=== PATIENT | female | born 1955 | race Caucasian/White ===

== ENCOUNTER 2023-07-12 09:27 | Emergency (ER) | payer MEDICARE, SELFPAY ==
[2023-07-12] VITALS (8 sets, daily range): BP systolic 130–148; BP diastolic 64–83; PULSE 87–100; RESP 15–16; TEMP 35.7; O2SAT 98–100; BMI 21.1
--- NOTE | 2023-07-12 09:36 | EDS_ITS ---
HPI History of Present Illness HPI Narrative: Patient presents with left wrist pain that began this morning. Patient states he slipped and fell backwards. Patient states she tried to catch herself with her left hand. Patient describes her pain as aching. Patient states it is worse with movement such as flexion. Patient states it is better with rest. Patient denies any paresthesias or weakness. Patient denies any head injury or loss of consciousness. Patient denies any other injuries. Chief Complaint: Upper Extremity Injury Informant: patient Occured/Mechanism Mechanism/Context: Yes fall Onset/Context/Timing Onset: Today Context: Sudden Onset Timing: Continuous Quality of Pain: Aching Location: Left wrist Worsened by: Movement Relieved by: Rest Associated Symptoms Associated Symptoms: Negative for Parasthesia, Weakness or Loss of Funtion PFSH PFSH Medical History no medical history no medical history Home Medications NK 07/12/23 [History Last Taken Unknown] Allergy/AdvReac Type Severity Reaction Status Date / Time Penicillins Allergy Intermediate Hives Verified 07/12/23 09:30 Sulfa (Sulfonamide Allergy Intermediate Hives Verified 07/12/23 09:30 Antibiotics) meperidine [From Demerol] AdvReac Mild Other Verified 07/12/23 09:30 Surgical History no surgical history no surgical history Social History Smoking Status: Never smoker ROS ROS ED Constitutional Constitutional ED: Denies chills or fever(s) Eyes Eyes: Denies blurry vision or change in vision ENT ENT ED: Denies rhinorrhea or sore throat Cardiovascular Cardiovascular: Denies chest pain or palpitations Respiratory/Chest Respiratory/Chest: Denies cough or dyspnea Gastrointestinal Gastrointestinal: Denies nausea or vomiting Genitourinary Genitourinary ED: Denies dysuria or hematuria Musculoskeletal Musculoskeletal: Denies back pain or neck pain Integumentary Denies abscess or rash Neurologic Neurologic: Denies headache(s) or weakness Allergic/Immunologic Allergic/Immunologic ED: Denies mouth swelling or urticaria EXAM Physical Exam Const Vital Signs: 07/12/23 09:28 Temperature 96.2 F L Temperature Source Temporal Pulse Rate 88 Respiratory Rate 16 Blood Pressure 136/78 H Blood Pressure Mean 97 Pulse Ox 100 Oxygen Delivery Method Room Air Positive well nourished and well developed General Appearance ED: well developed and NAD HEENT Reports moist mucous membranes Neck full ROM and supple Extremity Extremity Narrative: There is tenderness and edema over the left wrist. Range of motion was limited in all motions of the left wrist secondary to pain. There are some mild ecchymosis noted. Radial pulses are equal bilaterally. Sensation was intact to light touch in the radial, median, and ulnar areas. Strength is 5/5 in the radial, median, and ulnar areas. General Extremety ED: Yes edema General Extremity: edema Neuro oriented x3, CN's II-XII intact bilaterally, moves all extremities, no focal motor deficits and no sensory deficits noted Sensorium / Orientation: alert Motor Exam: strength 5/5 throughout Psych mental status grossly normal MDM MDM MDM Narrative Medical decision making narrative: Differential diagnosis includes fracture, dislocation, and sprain. X-rays of the left wrist will be obtained to assess for fracture. Radiography Diagnostic Testing: X-rays of the left wrist were obtained. There are 3 views. On my independent interpretation, there is a fracture of the distal radius. There is dorsal angulation of the distal fragment. There is mild displacement. There is questionable fracture of the ulnar styloid. Radiologist also interpreted the x- rays and agrees. Repeat x-rays of the left wrist were obtained after reduction. There are 2 views. On my independent interpretation, there is improvement of the fracture alignment. There is still some dorsal angulation of the distal radius. Radiologist also interpreted the x-rays and agrees. Treatment and Re-Evaluation Narrative: Patient declined any analgesics. Patient was advised of her findings. Patient was advised of the need for sedation and reduction. Patient was advised of the risks and benefits of sedation. Patient is agreeable with this. Informed consent was obtained. Patient was placed on continuous cardiac and pulse oximeter monitors. IV line was established. Patient was given 50 mg of propofol. After adequate sedation, the fracture was reduced. Patient was plac ed in a short arm well-padded custom made AP splint. Neurovascular exam was intact after placement of the splint. Patient tolerated the procedure well. Repeat x-rays were obtained. There are 2 views. On my independent interpretation, the fracture fragments showed somewhat improved alignment. There is still some dorsal angulation. Radiologist also interpreted the x-rays and agrees. Patient does not want any analgesics prescribed at this time. Patient states she would prefer to take Tylenol at home. Patient was given a referral for orthopedics. Patient was instructed to ice and elevate the left wrist. Patient understood and was agreeable with the plan. All questions were answered. Procedures Upper Extremity Splints Upper Extremity Splint: Orthoglass and - (AP) Splint Fabrication: Fabricated Location: Left Procedural Sedation 1 (Initial Baseline): Consent Signed: Yes Any Problems With Anesthesia: No You/Your family experience fever (hyperthermia) w/anesthesia: No Sedation medication: Propofol Dose: 50 Route: IV Maliampati Score: Class II ASA Classification: I Discharge Plan Triage Chief Complaint: Upper Extremity Injury ED Provider: Abhishek Gresham Dx/Rx/DC Orders Clinical Impression: Fracture of left distal radius, Fall Instructions: ED Fracture, Wrist, General Prescriptions: No Action NK Stand Alone Forms: [facility] Primary Care Provider: Teo Ribera Referrals: Don Lange DO [Med Staff - Active Staff] - 3-5 Days Teo Ribera MD [Primary Care Provider] - Disposition Disposition: Home, Self Care
--- NOTE | 2023-07-12 09:45 | RAD_ITS ---
STUDY: X-RAY - LEFT WRIST REASON FOR EXAM: Female, 68 years old. Wrist pain following a fall. TECHNIQUE: 3 view(s) of the wrist were obtained. COMPARISON: None. FINDINGS: There is a comminuted fracture of the distal radial metaphysis with extension to the articular surface. There is evidence of dorsal facing of the radial carpal joint. Avulsion fracture of the ulnar styloid. Normal radiocarpal articulation. Normal distal radioulnar articulation. Normal carpal bones. Normal carpal articulations. Normal carpometacarpal articulation of the thumb. Normal second through fifth carpometacarpal articulations. Normal visualized metacarpal bones. Soft tissue swelling. RAD/Wrist min 3 Views IMPRESSION: Comminuted fracture of the distal radial metaphysis with extension to the articular surface. There is evidence of dorsal facing. Avulsion fracture of the ulnar styloid. Soft tissue swelling. Electronically Signed: Rosendo Marino MD at 10:13 EST ,
[2023-07-12] MEDS: Propofol 200 MG/20 ML Vial IV BOLUS (11:48)
[2023-07-12] MEDS: 0.9% Normal Saline (1000mL) 1,000 ML 15 ML IV (11:48)
--- NOTE | 2023-07-12 12:10 | RAD_ITS ---
STUDY: X-RAY - LEFT WRIST REASON FOR EXAM: Female, 68 years old. Distal radius fracture -- Postreduction TECHNIQUE: 2 view(s) of the wrist were obtained. COMPARISON: Comparison is made with prior study done earlier in day. FINDINGS: Post reduction images. Residual dorsal facing is seen. Normal radiocarpal articulation. Normal distal radioulnar articulation. Normal carpal bones. Normal carpal articulations. Normal carpometacarpal articulation of the thumb. Normal second through fifth carpometacarpal articulations. Normal visualized metacarpal bones. Soft tissue swelling. RAD/Wrist 2 Views IMPRESSION: Satisfactory reduction with residual dorsal facing. Electronically Signed: Rosendo Marino MD at 12:30 EST ,
== END 2023-07-12 13:25 | disposition home or self-care (01) ==
PROVIDERS: Emergency Provider Emergency Medicine; PCP Family Medicine; Visit Provider Emergency Medicine
DX: S52.502A Unspecified fracture of the lower end of left radius, initial encounter for closed fracture (principal); W01.0XXA Fall on same level from slipping, tripping and stumbling without subsequent striking against object, initial encounter
CPT/HCPCS: 25605; 29405; 73100; 73110; 96360; 99284; J7030; A4216

== ENCOUNTER 2023-07-27 07:25 | Day surgery (SDC) | payer MEDICARE, SELFPAY ==
[2023-07-27] VITALS (10 sets, daily range): BP systolic 131–179; BP diastolic 72–102; PULSE 83–100; RESP 16–18; TEMP 36.2–36.8; O2SAT 18–100; BMI 19.4
--- OUTSIDE RECORDS SUMMARY | 2023-07-27 07:32 | XMS RPT_ITS | CCD ---
Author Name Unknown Address [facility] access hospital[facility] [address] [place] [address] Organization [facility] Care Team Providers Care Planner Name Role Phone Layla Abdul MD Primary Care Provider [phone] LALYA ABDUL Attending Unavailable LAYLA ABDUL Primary Care Unavailable LAYLA ABDUL Referring Unavailable LAYLA ABDUL Primary Care Unavailable LAYLA ABDUL Referring Unavailable LAYLA ABDUL Primary Care Unavailable Allergies Allergy Classification Reported Allergen(s) Allergy Type Date of Onset Reaction(s) Facility (4 sources) Penicillins; Translations: [PENICILLINS] Propensity to adverse reactions 6 [facility] Work Phone: [phone] (12 sources) Sulfonamides (Antibiotic); Translations: [SULFA (SULFONAMIDE ANTIBIOTICS)] Propensity to adverse reactions 6 [facility] Work Phone: (8 sources) Penicillins Propensity to adverse reactions 6 [facility] Work Phone: Medications Completed/Discontinued Medications Medication Drug Class(es) Dates Sig (Normalized) Sig (Original) C,E,zinc,copper 94-[id number] (OCUVITE ADULT 50 PLUS) 250-5-1 mg cap (11 sources) Start: 11-03-2021 C,E,zinc,copper 92-[id number] (OCUVITE ADULT 50 PLUS) 250-5-1 mg cap Take 1 capsule by mouth once daily. 0 11/03/2021 Active Problems Active Problems Problem Classification Problem Date Documented Da te Episodic/Chronic Diabetes mellitus without complication (1 source) Increased glucose level; Translations: [Other abnormal glucose] Episodic Disorders of lipid metabolism (1 source) Hyperlipidemia; Translations: [Hyperlipidemia, unspecified] Chronic Esophageal disorders (11 sources) Gastro-esophageal reflux disease with esophagitis; Translations: [Reflux esophagitis] Onset: 08-24-2006 10-01-2006 Chronic Osteoarthritis (11 sources) Osteoarthritis; Translations: [Unspecified osteoarthritis, unspecified site] 07-20-2021 Chronic Osteoporosis (12 sources) Osteoporosis; Translations: [Age-related osteoporosis without current pathological fracture] Chronic Other screening for suspected conditions (not mental disorders or infectious disease) (16 sources) Patient encounter status; Translations: [Encounter for screening for malignant neoplasm of colon] Onset: 12-27-2011 Episodic Thyroid disorders (5 sources) Thyroid nodule; Translations: [Nontoxic single thyroid nodule] Onset: 11-10-2022 Chronic Past or Other Problems Problem Classification Problem Date Documented Da te Episodic/Chronic Nonspecific chest pain (11 sources) Chest pain; Translations: [Chest pain, unspecified] Onset: 08-24-2006 10-01-2006 Episodic Other bone disease and musculoskeletal deformities (11 sources) Disorder of skeletal system; Translations: [Disorder of bone, unspecified] Onset: 08-24-2006 10-01-2006 Episodic Results Test Name Value Interpretation Reference Range Facil ity Vital Signs Date Time Vital Sign Value Performing Clinician Faci lity 11-04-2022 07:53-0400 Body height 157.5 cm Layla Abdul MD Work Phone: [facility] 11-04-2022 07:53-0400 Body weight 48.99 kg Layla Abdul MD Work Phone: [facility] 11-04-2022 07:53-0400 Diastolic blood pressure 90 mm[Hg] Layla Abdul MD Work Phone: [facility] 11-04-2022 07:53-0400 Heart rate 94 /min Layla Abdul MD Work Phone: [facility] 11-04-2022 07:53-0400 Respiratory rate 16 /min Layla Abdul MD Work Phone: [facility] 11-04-2022 07:53-0400 Systolic blood pressure 160 mm[Hg] Layla Abdul MD Work Phone: [facility] 11-03-2021 08:41-0400 Body height 156.2 cm Layla Abdul MD Work Phone: [facility] 11-03-2021 08:41-0400 Body weight 48.76 kg Layla Abdul MD Work Phone: [facility] 11-03-2021 08:41-0400 Diastolic blood pressure 80 mm[Hg] Layla Abdul MD Work Phone: [facility] 11-03-2021 08:41-0400 Heart rate 84 /min Layla Abdul MD Work Phone: [facility] 11-03-2021 08:41-0400 Respiratory rate 16 /min Layla Abdul MD Work Phone: [facility] 11-03-2021 08:41-0400 Systolic blood pressure 150 mm[Hg] Layla Abdul MD Work Phone: [facility] Encounters Encounter Date Encounter Type Care Provider Facility Start: 06-07-2023 Documentation procedure Mammog moises Coordinator [facility] Start: 06-07-2023 Letter encounter Mammography Coordinator [facility] Department Start: 06-06-2023 End: 06-06-2023 ambulatory LAYLA ABDUL Facility:[facility] Start: 06-06-2023 End: 06-06-2023 Subsequent hospital visit by physician Screen Mammo [facility] Mammogram Procedures Date Procedure Procedure Detail Performing Clinician Start: 11-10-2022 Us soft tissue head & neck real time imge docjaved Abdul MD Work Phone: Start: 06-01-2022 End: 06-01-2022 Mammography Layla Abdul MD Work Phone: Start: 11-05-2021 Us soft tissue head & neck real time imge docjaved Abdul MD Work Phone: Start: 11-04-2021 Lipid 1996 panel - S tru or Plasma Us 2 Work Phone: Start: 10-29-2021 Adult depression scr eening assessment Layla Abdul MD Work Phone: Start: 05-28-2021 Mammography Layla wong MD Work Phone: Plan of Treatment Date Care Activity Detail Author Start: 11-04-2026 Lipid 1996 panel - S tru or Plasma Lipid Screening [facility] Start: 11-04-2026 LIPID SCREEN LIPID SCREEN [facility] Start: 11-04-2024 DIABETES SCREEN DIABETES SCREEN [facility] Start: 11-04-2024 Diabetes Screening Diabetes Screenin g [facility] Start: 06-06-2024 Mammography Mammogram Screening [facility] Start: 11-06-2023 COLORECTAL CANCER SCREENING COLORECTAL CANCER SCREENING [facility] Start: 11-06-2023 FECAL OCCULT BLOOD FECAL OCCULT BLOO D [facility] Start: 11-05-2023 BONE DENSITY BONE DENSITY [facility] Immunizations Immunization Date Immunization Notes Care Provider Fa cility 09-27-2020 COVID-19 vaccine, ag e 12+ yr (PFIZER-BIONTECH - PURPLE TOP) Layla Abdul MD Work Phone: [facility] 09-02-2020 COVID-19 vaccine, ag e 12+ yr (PFIZER-BIONTECH - PURPLE TOP) Layla Abdul MD Work Phone: [facility] 04-26-2020 influenza, injectabl e, quadrivalent, contains preservative Layla Abdul MD Work Phone: [facility] Work Phone: 04-26-2020 influenza virus vaccine, unspecified formulation 2 Work Phone: [facility] 05-03-2019 influenza, seasonal, injectable Layla Abdul MD Work Phone: [facility] 10-23-2018 pneumococcal conjuga te vaccine, 13 valent Layla Abdul MD Work Phone: [facility] 05-19-2015 influenza, seasonal, injectable Layla Abdul MD Work Phone: [facility] 05-15-2013 influenza virus vaccine, unspecified formulation Layla Abdul MD Work Phone: [facility] 04-29-2012 influenza virus vaccine, unspecified formulation Layla Abdul MD Work Phone: [facility] 07-07-2009 novel [id number], all formulations Layla Abdul MD Work Phone: [facility] Work Phone: 02-02-2008 tetanus toxoid, reduced diphtheria toxoid, and acellular pertussis vaccine, adsorbed Layla Abdul MD Work Phone: [facility] Work Phone: 06-03-2005 influenza virus vaccine, unspecified formulation Layla Abdul MD Work Phone: [facility] Work Phone: Payers Date Payer Category Payer Unknown ANTHEM BLUE CROS S AND BLUE SHIELD ANTHEM MEDIBLUE O [id number] 2020-Present [phone] [id number] [id number] 2020 Unknown ANTHEM BLUE CROS S AND BLUE SHIELD ANTHEM MEDIBLUE O [id number] 2020-Present [phone] [id number] [place], [place] [address] [facility] [place] [id number] 2020 Unknown [id number] Social History Date Type Detail Facility Start: 09-04-2015 End: 11-04-2022 Tobacco smoking status NHIS Never smoked tobacco [facility] Start: 11-03-2021 End: 11-04-2022 Alcohol intake Current non-drinker of alcohol (finding) [facility] Start: 01-02-2020 End: 10-29-2022 History SDOH Alcohol Frequency 2 [facility] Start: 12-31-2019 End: 10-29-2021 History SDOH Alcohol Std Drinks 1 [facility] Start: 10-29-2021 History SDOH Social Connections [facility] 98 [facility] Start: 10-29-2021 End: 10-29-2022 History SDOH Social Connections [facility] 3 [facility] Start: 10-29-2021 History SDOH Physica l Activity DPW 6 [facility] Start: 12-31-2019 End: 10-29-2022 History SDOH Financial 5 [facility] Start: 12-31-2019 Education 16 [facility] Start: 1955 Sex Assigned At Female C [facility] Start: 10-24-2021 End: 11-03-2021 Exposure to SARS-CoV-2 (event) Not sure [facility] Start: 09-04-2015 End: 11-04-2022 Tobacco use and exposure Smokeless tobacco non-user [facility] Start: 10-29-2021 End: 10-29-2022 History of Social function [facility] Start: 10-29-2021 End: 10-29-2022 Social connection and isolation panel [facility] How often do you att end hoahaoism or roman catholic services? Patient refused [facility] Do you belong to any clubs or organizations such as hoahaoism groups, unions, fraternal or athletic groups, or school groups? No [facility] Are you now , , , , never or living with a partner? [facility] How many standard dr inks containing alcohol do you have on a typical day? 1 or 2 [facility] How often do you hav e 6 or more drinks on 1 occasion? Never [facility] Do you feel stress - tense, restless, nervous, or anxious, or unable to sleep at night because your mind is troubled all the time - these days [OSQ] Only a little [facility] (I/We) worried wheth er (my/our) food would run out before (I/we) got money to buy more. Never true [facility] Start: 10-21-2020 Gender identity Identifies as female gender (finding) [facility] Start: 04-09-2020 Sexual orientation Heterosexual (fin guille) [facility] How often to you hav e a drink containing alcohol? Monthly or less [facility] Do you feel stress - tense, restless, nervous, or anxious, or unable to sleep at night because your mind is troubled all the time - these days [OSQ] To some extent [facility] Clinical Notes 11-03-2021 to 06-07-2023 Letter - Coordinator, [facility] - 06/07/2023 8:09 AM Bessy Muñoz Mendeleyo Mario - 06/06/2023 7:30 AM Shane Be MA - 11/22/2022 1:09 PM Cheryl Be MA - 11/22/2022 12:51 PM EDT Note Date & Type Note Facility 06-07-2023 Miscellaneous Notes June 07, 2023 PID: [id number] Becca Esquivel [address] [place] [address] Dear Ms. Esquivel, We are pleased to inform you that the results of your recent breast imaging exam on 06/06/2023 are normal. Your mammogram demonstrates that you have dense breast tissue, which could hide abnormalities. Dense breast tissue, in and of itself, is a relatively common condition. Therefore, this information is not provided to cause undue concern; rather, it is to raise your awareness and promote discussion with your health care provider regarding the presence of dense breast tissue in addition to other risk factors. Early detection of cancer is very important. We also understand recommendations regarding breast cancer screening are controversial. Please discuss with your primary care provider which strategy is best for you and whether a mammogram is right for you. Your imaging studies and report will be kept on file at [facility] as part of your permanent medical record and are available for your continuing care. Thank you for allowing us to help in meeting your health care needs. Sincerely, Dr. Staley Interpreting Radiologist [facility] (Normal over 40) documented in this encounter [facility] 06-06-2023 Note HNO ID: [id number] Author: Bessy Wilson Mammo Mario Service: ? Author Type: Exhibit Artist Type: Progress Notes Filed: 06/06/2023 8:09 AM Note Text: Radiology Service Progress Note PATIENT NAME: Becca Esquivel DATE OF SERVICE: June 06, 2023 TIME: 7:31 AM PATIENT IDENTITY VERIFICATION COMPLETED USING TWO (2) IDENTIFIERS: Name and Date of confirmed by patient verbally. FALL SCREENING: Has the patient had 2 falls in the last year or 1 fall with injury or currently using an Ambulatory Assistive Device (Walker, Cane, Wheelchair, Crutches, etc.)? No PATIENT GENDER DATA: Female. status: : No status: NO. PATIENT RELEVANT IMPLANT DATA REVIEWED: Not Applicable RADIOLOGY DEPARTMENT: Mammography PERIPHERAL IV DATA: Not applicable SIGNED BY: Bessy Wilson [employer] June 06, 2023 7:31 AM [facility] 06-06-2023 History of Presen t illness Narrative Radiology Service Progress Note PATIENT NAME: Becca Esquivel DATE OF SERVICE: June 06, 2023 TIME: 7:31 AM PATIENT IDENTITY VERIFICATION COMPLETED USING TWO (2) IDENTIFIERS: Name and Date of confirmed by patient verbally. FALL SCREENING: Has the patient had 2 falls in the last year or 1 fall with injury or currently using an Ambulatory Assistive Device (Walker, Cane, Wheelchair, Crutches, etc.)? No PATIENT GENDER DATA: Female. status: : No status: NO. PATIENT RELEVANT IMPLANT DATA REVIEWED: Not Applicable RADIOLOGY DEPARTMENT: Mammography PERIPHERAL IV DATA: Not applicable SIGNED BY: Bessy Wilson [employer] June 06, 2023 7:31 AM documented in this encounter [facility] 02-24-2023 Note Patient Outreach (TRAMAINE FREGOSO) SIERRAGABYE Javed ([id number]) 1955 F Date Time Provider Department 02/24/23 VIDYA BE During your visit today, we recorded the following information about you: Vidya Be MA 02/24/2023 9:56 AM Signed POPULATION HEALTH NAVIGATION OUTREACH Action/FYI Left patient voicemail message to return call. My chart message sent. Annual wellness for October 2023, per PCP 11/04/22 office note return in 1 year (around 11/05/23). Mammogram already scheduled for 06/06/23. Inquire about advance directive Patient Identified by Name and : NO Outreach Outcome/Action Unable to reach patient: Left message [employer] System[employer]art message sent Did you use a PCP flex slot to schedule this appointment? N/A Reason for Outreach Care Gap or Scheduling/Wellness visits Payer: Payor: ESHA IRIS[employer] AND BLUE AuctionPay / Plan: ESHA 3D Forms HMO / Product Type: HMO / Care Gap Reviewed:: Annual Wellness visit Reminder: Reminder note to check Health Maintenance for items below Health Maintenance items due: SHINGRIX VACCINE(1 of 2) Never done DTAP,TDAP,TD(2 - Td or Tdap) due on 02/01/2018 COVID-19 VACCINE(6 - Pfizer series) due on 08/21/2022 Navigation Signature: Vidya Be MA February 24, 2023 9:47 AM Vidya Be MA 02/24/2023 10:22 AM Signed POPULATION HEALTH NAVIGATION OUTREACH Action/FYI Patient returned call. Scheduled patients Annual wellness for 11/08/23. Please bring advance directive copies to next office visit. Patient Identified by Name and : YES, via phone Outreach Outcome/Action Spoke to patient / parent / legal guardian: Patient scheduled Did you use a PCP flex slot to schedule this appointment? No Navigation Signature: Vidya Be MA February 24, 2023 10:20 AM Allergies As of Date: 02/24/2023 Noted Allergy Reaction PENICILLINS 08/03/2005 SULFA (SULFONAMIDE ANTIBIOTICS) 08/03/2005 Date Reviewed: 11/04/2022 Reviewed by: Aminah Wilhelm Ma - Fully Assessed Reason for Visit: Population Health Navigation Outreach [3910] Cmt: Navigator [facility] outreach 7.21.23 list Prescriptions as of 02/24/2023 - Cholecalciferol, Vitamin D3, 25 mcg (1,000 unit) cap Take 1 capsule by mouth once daily. - C,E,zinc,copper [id number] (OCUVITE ADULT 50 PLUS) 250-5-1 mg cap Take 1 capsule by mouth once daily. - multivitamin tablet Take 1 tablet by mouth once daily. Meds Comments as of 10/28/2020: Multivitamin. [facility] Problem List As Of Date 02/24/2023 Noted Resolved CHEST PAIN UNSPECIFIED [R07.9] 08/24/2006 REFLUX ESOPHAGITIS [K21.00] 08/24/2006 BONE AND CARTILAGE DIS NOS [M89.9, M94.9] 08/24/2006 Osteoporosis [M81.0] Osteoarthritis [M19.90] Screening for malignant neoplasm of cervix [Z12*12/27/2011 Encounter Status:Closed by VIDYA BE on 02/24/23 [facility] 02-24-2023 Note HNO ID: [id number] Author: Vidya Be MA Service: ? Author Type: Air Conditioning Supervisor Type: Progress Notes Filed: 02/24/2023 10:22 AM Note Text: POPULATION HEALTH NAVIGATION OUTREACH Action/FYI Patient returned call. Scheduled patients Annual wellness for 11/08/23. Please bring advance directive copies to next office visit. Patient Identified by Name and : YES, via phone Outreach Outcome/Action Spoke to patient / parent / legal guardian: Patient scheduled Did you use a PCP flex slot to schedule this appointment? No Navigation Signature: Vidya Be MA February 24, 2023 10:20 AM [facility] 02-24-2023 Note HNO ID: [id number] Author: Vidya eB MA Service: ? Author Type: Air Conditioning Supervisor Type: Progress Notes Filed: 02/24/2023 9:56 AM Note Text: POPULATION HEALTH NAVIGATION OUTREACH Action/FYI Left patient voicemail message to return call. My chart message sent. Annual wellness for October 2023, per PCP 11/04/22 office note return in 1 year (around 11/05/23). Mammogram already scheduled for 06/06/23. Inquire about advance directive Patient Identified by Name and : NO Outreach Outcome/Action Unable to reach patient: Left message [employer] Systemshart message sent Did you use a PCP flex slot to schedule this appointment? N/A Reason for Outreach Care Gap or Scheduling/Wellness visits Payer: Payor: ESHA IRIS.TV AND BLUE SHIELD / Plan: ANTHMiew HMO / Product Type: HMO / Care Gap Reviewed:: Annual Wellness visit Reminder: Reminder note to check Health Maintenance for items below Health Maintenance items due: SHINGRIX VACCINE(1 of 2) Never done DTAP,TDAP,TD(2 - Td or Tdap) due on 02/01/2018 COVID-19 VACCINE(6 - Pfizer series) due on 08/21/2022 Navigation Signature: Vidya Be MA February 24, 2023 9:47 AM [facility] 11-22-2022 Note HNO ID: [id number] Author: Vidya Be MA Service: ? Author Type: Air Conditioning Supervisor Type: Progress Notes Filed: 02/24/2023 9:52 AM Note Text: POPULATION HEALTH NAVIGATION OUTREACH Action/FYI Patient returned call. Placed Mammogram orders, filed and scheduled patients mammogram for 06/06/23. Digital Editor completed for Mammogram. Will call patient in a few months when PCP template opens for October 2023. Patient Identified by Name and : YES, via phone Outreach Outcome/Action Spoke to patient / parent / legal guardian: Patient scheduled Patient will return the call or ask for return call Did you use a PCP flex slot to schedule this appointment? N/A Navigation Signature: Vidya Be MA November 22, 2022 1:09 PM [facility] 11-22-2022 Note HNO ID: [id number] Author: Vidya Be MA Service: ? Author Type: Air Conditioning Supervisor Type: Progress Notes Filed: 11/22/2022 1:09 PM Note Text: POPULATION HEALTH NAVIGATION OUTREACH Action/FYI Left patient voicemail message to return call. My chart message sent. Mammogram for May [address]23 [address] Abdul scheduling template not open yet to schedule wellness exam for October 2023. Patient Identified by Name and : NO Outreach Outcome/Action Unable to reach patient: Left message [employer] message sent Did you use a PCP flex slot to schedule this appointment? N/A Reason for Outreach Care Gap or Scheduling/Wellness visits Payer: Payor: [employer] CROSS AND BLUE SHIELD / Plan: ANTHEM MEDISimplesurance HMO / Product Type: HMO / Care Gap Reviewed:: Breast Cancer screening Reminder: Reminder note to check Health Maintenance for items below Health Maintenance items due: SHINGRIX VACCINE(1 of 2) Never done DTAP,TDAP,TD(2 - Td or Tdap) due on 02/01/2018 Navigation Signature: Vidya Be MA November 22, 2022 12:51 PM [facility] 11-22-2022 Note Patient Outreach (TRAMAINE QUIJANOAV) BECCA ESQUIVEL ([id number]) 1955 F Date Time Provider Department 11/22/22 VIDYA BE During your visit today, we recorded the following information about you: Vidya Be MA 11/22/2022 1:09 PM Addendum POPULATION HEALTH NAVIGATION OUTREACH Action/FYI Left patient voicemail message to return call. My chart message sent. Mammogram for May [address]23 [address] Abdul scheduling template not open yet to schedule wellness exam for October 2023. Patient Identified by Name and : NO Outreach Outcome/Action Unable to reach patient: Left message [employer] message sent Did you use a PCP flex slot to schedule this appointment? N/A Reason for Outreach Care Gap or Scheduling/Wellness visits Payer: Payor: [employer] / Plan: [employer] HMO / Product Type: HMO / Care Gap Reviewed:: Breast Cancer screening Reminder: Reminder note to check Health Maintenance for items below Health Maintenance items due: SHINGRIX VACCINE(1 of 2) Never done DTAP,TDAP,TD(2 - Td or Tdap) due on 02/01/2018 Navigation Signature: Vidya Be MA November 22, 2022 12:51 PM Vidya Be MA 02/24/2023 9:52 AM Addendum POPULATION HEALTH NAVIGATION OUTREACH Action/FYI Patient returned call. Placed Mammogram orders, filed and scheduled patients mammogram for 06/06/23. Digital Editor completed for Mammogram. Will call patient in a few months when PCP template opens for October 2023. Patient Identified by Name and : YES, via phone Outreach Outcome/Action Spoke to patient / parent / legal guardian: Patient scheduled Patient will return the call or ask for return call Did you use a PCP flex slot to schedule this appointment? N/A Navigation Signature: Vidya Be MA November 22, 2022 1:09 PM Allergies As of Date: 11/22/2022 Noted Allergy Reaction PENICILLINS 08/03/2005 SULFA (SULFONAMIDE ANTIBIOTICS) 08/03/2005 Date Reviewed: 11/04/2022 Reviewed by: Aminah Wilhelm Ma - Fully Assessed Reason for Visit: Population Health Navigation Outreach [3910] Cmt: Navigator [facility] outreach Primary Visit Diagnosis:Encounter for screening mammogram for malignant neoplasm of breast [Z12.31] Order(s):[facility] SCREENING [[id number]] Order #: [id number] FUTURE Prescriptions as of 02/24/2023 - Cholecalciferol, Vitamin D3, 25 mcg (1,000 unit) cap Take 1 capsule by mouth once daily. - C,E,zinc,copper 33-[id number] (OCUVITE ADULT 50 PLUS) 250-5-1 mg cap Take 1 capsule by mouth once daily. - multivitamin tablet Take 1 tablet by mouth once daily. Meds Comments as of 10/28/2020: Multivitamin. [facility] Problem List As Of Date 11/22/2022 Noted Resolved CHEST PAIN UNSPECIFIED [R07.9] 08/24/2006 REFLUX ESOPHAGITIS [K21.00] 08/24/2006 BONE AND CARTILAGE DIS NOS [M89.9, M94.9] 08/24/2006 Osteoporosis [M81.0] Osteoarthritis [M19.90] Screening for malignant neoplasm of cervix [Z12*12/27/2011 Encounter Status:Closed by VIDYA BE on 11/22/22 [facility] 11-22-2022 History of Presen t illness Narrative POPULATION [facility] NAVIGATION OUTREACH Action/ Patient returned call. Placed Mammogram orders, filed and scheduled patients mammogram for 06/06/23. Digital Editor completed for Mammogram. Patient Identified by Name and : YES, via phone Outreach Outcome/Action Spoke to patient / parent / legal guardian: Patient scheduled Patient will return the call or ask for return call Did you use a PCP flex slot to schedule this appointment? N/A Navigation Signature: Vidya Be MA November 22, 2022 1:09 PM POPULATION HEALTH NAVIGATION OUTREACH Action/FYI Left patient voicemail message to return call. My chart message sent. Mammogram for May 2023 Dr. Abdul scheduling template not open yet to schedule wellness exam for October 2023. Patient Identified by Name and : NO Outreach Outcome/Action Unable to reach patient: Left message MyChart message sent Did you use a PCP flex slot to schedule this appointment? N/A Reason for Outreach Care Gap or Scheduling/Wellness visits Payer: Payor: [employer] AND [employer] / Plan: [employer]ISim[employer]urance HMO / Product Type: HMO / Care Gap Reviewed:: Breast Cancer screening Reminder: Reminder note to check Health Maintenance for items below Health Maintenance items due: SHINGRIX VACCINE(1 of 2) Never done DTAP,TDAP,TD(2 - Td or Tdap) due on 02/01/2018 Navigation Signature: Vidya Be MA November 22, 2022 12:51 PM documented in this encounter [facility] 11-10-2022 Note HNO ID: [id number] Author: Guadalupe Brown RDMS Service: ? Author Type: Frog Catcher Type: Progress Notes Filed: 11/10/2022 8:59 AM Note Text: Radiology Service Progress Note PATIENT NAME: Becca Esquivel DATE OF SERVICE: November 10, 2022 TIME: 8:58 AM PATIENT IDENTITY VERIFICATION COMPLETED USING TWO (2) IDENTIFIERS: Name and Date of confirmed by patient verbally. FALL SCREENING: Has the patient had 2 falls in the last year or 1 fall with injury or currently using an Ambulatory Assistive Device (Walker, Cane, Wheelchair, Crutches, etc.)? No PATIENT GENDER DATA: Female. status: : No status: NO. PATIENT RELEVANT IMPLANT DATA REVIEWED: Not Applicable RADIOLOGY DEPARTMENT: Ultrasound PERIPHERAL IV DATA: Not applicable SIGNED BY: Guadalupe Brown RDMS RVT November 10, 2022 8:58 AM [facility] 11-10-2022 History of Presen t illness Narrative Radiology Service Progress Note PATIENT NAME: Becca Esquivel DATE OF SERVICE: November 10, 2022 TIME: 8:58 AM PATIENT IDENTITY VERIFICATION COMPLETED USING TWO (2) IDENTIFIERS: Name and Date of confirmed by patient verbally. FALL SCREENING: Has the patient had 2 falls in the last year or 1 fall with injury or currently using an Ambulatory Assistive Device (Walker, Cane, Wheelchair, Crutches, etc.)? No PATIENT GENDER DATA: Female. status: : No status: NO. PATIENT RELEVANT IMPLANT DATA REVIEWED: Not Applicable RADIOLOGY DEPARTMENT: Ultrasound PERIPHERAL IV DATA: Not applicable SIGNED BY: Guadalupe Brown RDMS RVT November 10, 2022 8:58 AM documented in this encounter [facility] 11-04-2022 Note HNO ID: [id number] Author: Layla Abdul MD Service: ? Author Type: Physician Type: Progress Notes Filed: 11/04/2022 8:31 AM Note Text: Medical B eligibilty date 03/2018 Date of last exam 11/03/2021 BP normal at home; gets anxious with doctor appt Due for annual thyroid US to monitor nodule Declines DEXA; would not be willing to take medications. PAST MEDICAL HISTORY Diagnosis Date GERD (gastroesophageal reflux disease) Lactose intolerance Osteoarthritis fingers Osteoporosis bisphosphonate 1431-6206, stopped due to heartburn PAST SURGICAL HISTORY Procedure Laterality Date NONE Penicillins and Sulfa (Sulfonamide Antibiotics) Current Outpatient Medications Medication Sig Cholecalciferol, Vitamin D3, 25 mcg (1,000 unit) cap Take 1 capsule by mouth once daily. C,E,zinc,copper [id number] (OCUVITE ADULT 50 PLUS) 250-5-1 mg cap Take 1 capsule by mouth once daily. multivitamin tablet Take 1 tablet by mouth once daily. No current facility-administered medications for this visit. Medications reviewed: Yes FAMILY HISTORY Problem Relation Age of Onset Arthritis Mother Rheumatoid Arthritis Cancer Mother Multiple myeloma Hypertension Father Social History Tobacco Use Smoking status: Never Smokeless tobacco: Never Vaping Use Vaping Use: Never used Substance Use Topics Alcohol use: No Drug use: No Becca likes to exercise by walking. Discussed strength training and balance training. She watches her diet for sodium, low fat and low cholesterol generally not very much. List of current specialists seen: Dr. Pugh at [facility] [address], Dermatology End of Live Planning discussed including patients advanced directive wishes: Yes I am willing to follow Ebcca advanced directives. Depression screen She in the past two weeks denies having felt down, depressed, hopeless, or with little interest or pleasure in doing things. Functional Ability/Safety Screen 1. Was the patient's timed Up and Go test unsteady or longer than 30 seconds? No 2. Does the patient need help with the phone, transportation, shopping,preparing meals, housework, laundry, medications or managing money? No 3. Does your home have rungs in the hallway, lack of grab bars in the bathroom, lack of handrails on the stairs or have poor lighting? No Hearing Evaluation: normal PHYSICAL EXAM There were no vitals taken for this visit. Visual acuity: OD: 20/30 OS: 20/ 15 OU: 20/15 No glasses ASSESMENT/PLAN: 67 year old female The following prevention plan was discussed during the office visit and provided to the patient: Counseling - Counseled on healthy diet and regular exercise - Fall avoidance - Colorectal cancer screening recommended - agrees to iFOBT testing 2. Screening for colon cancer - ICD9: V76.51, ICD10: Z12.11 - FECAL OCCULT BLOOD TEST 3. Thyroid nodule - ICD9: 241.0, ICD10: E04.1 - US THYROID/PARATHYROID Notify of results of US Follow up in 1 year I agree with the Chief Complaint, ROS, and Past Histories independently gathered by the clinical underwriting support manager and the remaining scribed note accurately describes my personal service to the patient. Layla Abdul MD The documentation for this note was completed by Aminah Wilhelm Ma acting as scribe for Layla Abdul MD. November 04, 2022 7:50 AM. Aminah Wilhelm Ma [facility] 11-04-2022 History of Presen t illness Narrative Medical B eligibilty date 03/2018 Date of last exam 11/03/2021 BP normal at home; gets anxious with doctor appt Due for annual thyroid US to monitor nodule Declines DEXA; would not be willing to take medications. PAST MEDICAL HISTORY Diagnosis Date GERD (gastroesophageal reflux disease) Lactose intolerance Osteoarthritis fingers Osteoporosis bisphosphonate 6456-0003, stopped due to heartburn PAST SURGICAL HISTORY Procedure Laterality Date NONE Penicillins and Sulfa (Sulfonamide Antibiotics) Current Outpatient Medications Medication Sig Cholecalciferol, Vitamin D3, 25 mcg (1,000 unit) cap Take 1 capsule by mouth once daily. C,E,zinc,copper [id number] (OCUVITE ADULT 50 PLUS) 250-5-1 mg cap Take 1 capsule by mouth once daily. multivitamin tablet Take 1 tablet by mouth once daily. No current facility-administered medications for this visit. Medications reviewed: Yes FAMILY HISTORY Problem Relation Age of Onset Arthritis Mother Rheumatoid Arthritis Cancer Mother Multiple myeloma Hypertension Father Social History Tobacco Use Smoking status: Never Smokeless tobacco: Never Vaping Use Vaping Use: Never used Substance Use Topics Alcohol use: No Drug use: No Becca likes to exercise by walking. Discussed strength training and balance training. She watches her diet for sodium, low fat and low cholesterol generally not very much. List of current specialists seen: Dr. Pugh at [facility] [address] [place], Dermatology End of Live Planning discussed including patients advanced directive wishes: Yes I am willing to follow Becca advanced directives. Depression screen She in the past two weeks denies having felt down, depressed, hopeless, or with little interest or pleasure in doing things. Functional Ability/Safety Screen 1. Was the patient's timed Up and Go test unsteady or longer than 30 seconds? No 2. Does the patient need help with the phone, transportation, shopping,preparing meals, housework, laundry, medications or managing money? No 3. Does your home have rungs in the hallway, lack of grab bars in the bathroom, lack of handrails on the stairs or have poor lighting? No Hearing Evaluation: normal PHYSICAL EXAM There were no vitals taken for this visit. Visual acuity: OD: 20/30 OS: 20/ 15 OU: 20/15 No glasses ASSESMENT/PLAN: 67 year old female The following prevention plan was discussed during the office visit and provided to the patient: Counseling - Counseled on healthy diet and regular exercise - Fall avoidance - Colorectal cancer screening recommended - agrees to iFOBT testing 2. Screening for colon cancer - ICD9: V76.51, ICD10: Z12.11 - FECAL OCCULT BLOOD TEST 3. Thyroid nodule - ICD9: 241.0, ICD10: E04.1 - US THYROID/PARATHYROID Notify of results of US Follow up in 1 year I agree with the Chief Complaint, ROS, and Past Histories independently gathered by the clinical underwriting support manager and the remaining scribed note accurately describes my personal service to the patient. Layla Abdul MD The documentation for this note was completed by Aminah Wilhelm Ma acting as scribe for Layla Abdul MD. November 04, 2022 7:50 AM. Aminah Wilhelm Ma documented in this encounter [facility] 11-01-2022 Miscellaneous Notes Personalized Disease Prevention (PDP): a randomized clinical trial IRB: #[id number] PI: Gopal Gallagher, PhD ([phone]) Becca Esquivel has consented/enrolled using the IRB approved Information Sheet (v 6.14.22) for the above-mentioned, minimal risk trial. The patient demonstrated good comprehension of risks, benefits, alternatives, study procedures and follow up. The patient was allocated to the control arm of the study. Beverly Briones documented in this encounter [facility] 06-01-2022 Miscellaneous Notes June 01, 2022 PID: [id number] Becca Esquivel [address] [place] [address] Dear Ms. Esquivel, We are pleased to inform you that the results of your recent breast imaging exam on 06/01/2022 are normal. Your mammogram demonstrates that you have dense breast tissue, which could hide abnormalities. Dense breast tissue, in and of itself, is a relatively common condition. Therefore, this information is not provided to cause undue concern; rather, it is to raise your awareness and promote discussion with your health care provider regarding the presence of dense breast tissue in addition to other risk factors. Early detection of cancer is very important. We also understand recommendations regarding breast cancer screening are controversial. Please discuss with your primary care provider which strategy is best for you and whether a mammogram is right for you. Your imaging studies and report will be kept on file at [facility] as part of your permanent medical record and are available for your continuing care. Thank you for allowing us to help in meeting your health care needs. Sincerely, Dr. Jacobo Interpreting Radiologist [facility] (Normal over 40) documented in this encounter [facility] 06-01-2022 History of Presen t illness Narrative Radiology Service Progress Note PATIENT NAME: Becca Esquivel DATE OF SERVICE: June 01, 2022 TIME: 7:21 AM PATIENT IDENTITY VERIFICATION COMPLETED USING TWO (2) IDENTIFIERS: Name and Date of confirmed by patient verbally. FALL SCREENING: Has the patient had 2 falls in the last year or 1 fall with injury or currently using an Ambulatory Assistive Device (Walker, Cane, Wheelchair, Crutches, etc.)? No PATIENT GENDER DATA: Female. status: : No status: NO. PATIENT RELEVANT IMPLANT DATA REVIEWED: Not Applicable RADIOLOGY DEPARTMENT: Mammography PERIPHERAL IV DATA: Not applicable SIGNED BY: RT Donita(R) June 01, 2022 7:21 AM documented in this encounter [facility] 12-17-2021 History of Presen t illness Narrative POPULATION HEALTH NAVIGATION OUTREACH Action/ Message regarding Colorectal Cancer Screening. [employer] message sent HM Due note for upcoming PCP visit Pt identified by name and : NO Outreach Outcome/Action Unable to reach patient: Left message [employer] message sent Reason for Outreach Care Gap or Scheduling/Wellness visits Payer: Payor: [employer] AND [employer] / Plan: [employer] HMO / Product Type: HMO / Care Gap Reviewed:: Colorectal Cancer Screening Reminder: Reminder note to check Health Maintenance for items below Health Maintenance items due: SHINGRIX VACCINE(1 of 2) Never done DTAP,TDAP,TD(2 - Td or Tdap) due on 02/01/2018 BONE DENSITY due on 2018 PNEUMOCOCCAL: 65+(1 - PCV) Never done COLORECTAL CANCER SCREENING due on 02/05/2021 COVID-19 VACCINE(4 - Booster for Pfizer series) due on 08/18/2021 Message Sent to Practice: No Navigation Signature: Lidia Martinez MA December 17, 2021 5:24 PM documented in this encounter [facility] 11-03-2021 History of Presen t illness Narrative Medical B eligibilty date 03/2018 Date of last exam 01/02/2020 Due to have thyroid US rechecked; nodule last year. Feels that her thyroid has gotten smaller. BP normal at home; reacts to stress/doctor's office. Due to have labs checked. Will hold off on DEXA; last one 10 years ago; did not tolerate treatment. Declines pneumovax; had reaction to Prevnar. PAST MEDICAL HISTORY Diagnosis Date GERD (gastroesophageal reflux disease) Lactose intolerance Osteoarthritis fingers Osteoporosis bisphosphonate 4597-6263, stopped due to heartburn PAST SURGICAL HISTORY Procedure Laterality Date NONE Penicillins and Sulfa (Sulfonamide Antibiotics) No current outpatient medications on file. No current facility-administered medications for this visit. Medications reviewed: Yes FAMILY HISTORY Problem Relation Age of Onset Arthritis Mother Rheumatoid Arthritis Cancer Mother Multiple myeloma Hypertension Father Social History Tobacco Use Smoking status: Never Smoker Smokeless tobacco: Never Used Vaping Use Vaping Use: Never used Substance Use Topics Alcohol use: No Drug use: No Becca likes to exercise by walking. She watches her diet for sodium, low fat and low cholesterol generally not very much. List of current specialists seen: none End of Live Planning discussed including patients advanced directive wishes: Yes I am willing to follow Becca advanced directives. Depression screen She in the past two weeks denies having felt down, depressed, hopeless or with little interest or pleasure in doing things. Functional Ability/Safety Screen 1. Was the patient's timed Up and Go test unsteady or longer than 30 seconds? No 2. Does the patient need help with the phone, transportation, shopping,preparing meals, housework, laundry, medications or managing money? No 3. Does your home have rungs in the hallway, lack of grab bars in the bathroom, lack of handrails on the stairs or have poor lighting? Yes Hearing Evaluation: normal PHYSICAL EXAM BP 150/80 Pulse 84 Resp 16 Wt 48.8 kg (107 lb 8 oz) BMI 19.98 kg/m Visual acuity: Dr. Woodall at [facility] CV: RRR Lungs Claer ASSESMENT/PLAN: 66 year old female The following prevention plan was discussed during the office visit and provided to the patient: - Fall avoidance - Vaccines recommended Shingrix at pharmacy - Diabetes screen - strong family history - Colorectal Cancer screening Fecal occult blood testing - Lipid panel I agree with the Chief Complaint, ROS, and Past Histories independently gathered by the clinical underwriting support manager and the remaining scribed note accurately describes my personal service to the patient. Layla Abdul MD 11/03/2021: Home BP Cuff Validated. Home BP: 181/97 Office BP: 150/80 The documentation for this note was completed by Aminah Wilhelm Ma acting as scribe for Layla Abdul MD. November 03, 2021 8:57 AM. Aminah Wilhelm Ma documented in this encounter [facility] Diagnosis Thyroid nodule Nontoxic uninodular goiter documented in this encounter [facility] note* Diagnosis Medicare annual wellness visit, subsequent- Primary Routine general medical examination at a health care facility Screening for colon cancer Special screening for malignant neoplasms, colon Thyroid nodule Nontoxic uninodular goiter [facility] Diagnosis Encounter for screening mammogram for malignant neoplasm of breast- Primary Other screening mammogram [facility] Diagnosis Thyroid nodule Nontoxic uninodular goiter [facility] Diagnosis Encounter for screening mammogram for malignant neoplasm of breast Other screening mammogram [facility] Diagnostic Procedure Only (Routine) - Authorized Specialty Diagnoses / Procedures Referred By Contac t Referred To Contact US IMAGING Diagnoses Thyroid nodule Procedures US THYROID/PARATHYROID US SOFT TISSUE HEAD & NECK REAL TIME IMGE DOCM Layla Abdul MD [address] [place] [address] [facility] Imaging Referral ID Status Reason Start Date Expiration Date Visits Requested Visits Authorized [id number] Authorized Auto-Generat ed Referral 11/03/2021 12/03/2022 1 1 [facility] for referral (narrative)* Diagnostic Procedure Only (Routine) - Closed Specialty Diagnoses / Procedures Referred By Contac t Referred To Contact US IMAGING Diagnoses Thyroid nodule Procedures US THYROID/PARATHYROID US SOFT TISSUE HEAD & NECK REAL TIME IMGE Layla Cooper MD [address] [place] [address] [facility] Imaging Referral ID Status Reason Start Date Expiration Date V isits Requested Visits Authorized [id number] Closed Auto-Generate d Referral 11/03/2021 12/03/2022 1 1 [facility] for referral (narrative)* Diagnostic Procedure Only (Routine) - Authorized Specialty Diagnoses / Procedures Referred By Contac t Referred To Contact US IMAGING Diagnoses Thyroid nodule Procedures US THYROID/PARATHYROID US SOFT TISSUE HEAD & NECK REAL TIME IMLayla Kam MD [address] [place] [address] Us Imaging Referral ID Status Reason Start Date Expiration Date Visits Requested Visits Authorized [id number] Authorized Auto-Generat ed Referral 11/04/2022 12/04/2023 1 1 [facility] for referral (narrative)* Diagnostic Procedure Only (Routine) - Authorized Specialty Diagnoses / Procedures Referred By Contac t Referred To Contact BR IMAGING Diagnoses Encounter for screening mammogram for malignant neoplasm of breast Procedures JUANPABLO SCREENING SCREENING MAMMOGRAPHY BI 2-VIEW BREAST INC CAD Layla Abdul MD [address] [place] [address] [facility] [address] [place] [address] Referral ID Status Reason Start Date Expiration Date Visits Requested Visits Authorized [id number] Authorized Auto-Generat ed Referral 11/22/2022 12/22/2023 1 1 [facility] for referral (narrative)* Diagnostic Procedure Only (Routine) - Closed Specialty Diagnoses / Procedures Referred By Susan t Referred To Contact US IMAGING Diagnoses Thyroid nodule Procedures US THYROID/PARATHYROID US SOFT TISSUE HEAD & NECK REAL TIME IMGE Layla Cooper MD [address] [place] [address] [place] [address] Referral ID Status Reason Start Date Expiration Date V isits Requested Visits Authorized [id number] Closed Auto-Generate d Referral 11/04/2022 12/04/2023 1 1 [facility] for visit Narrative* Diagnostic Procedure Only (Routine) - Closed Specialty Diagnoses / Procedures Referred By Susan t Referred To Contact US IMAGING Diagnoses Thyroid nodule Procedures US THYROID/PARATHYROID US SOFT TISSUE HEAD & NECK REAL TIME IMLayla Kam MD [address] [place] [address] [facility] Imaging Referral ID Status Reason Start Date Expiration Date V isits Requested Visits Authorized [id number] Closed Auto-Generate d Referral 11/03/2021 12/03/2022 1 1 [facility] for visit Narrative* Diagnostic Procedure Only (Routine) - Closed Specialty Diagnoses / Procedures Referred By Contac t Referred To Contact BR IMAGING Diagnoses Visit for screening mammogram Procedures JUANPABLO SCREENING SCREENING MAMMOGRAPHY BI 2-VIEW BREAST INC CAD Layla Abdul MD [address] [place] [address] [facility] [address] [place] [address] Referral ID Status Reason Start Date Expiration Date V isits Requested Visits Authorized [id number] Closed Auto-Generate d Referral 03/18/2022 04/16/2023 1 1 [facility] for visit Narrative* Diagnostic Procedure Only (Routine) - Closed Specialty Diagnoses / Procedures Referred By Contac t Referred To Contact BR IMAGING Diagnoses Encounter for screening mammogram for malignant neoplasm of breast Procedures JUANPABLO SCREENING SCREENING MAMMOGRAPHY BI 2-VIEW BREAST INC CAD Layla Abdul MD [address] [place] [address] [facility] [address] [place] [address] Referral ID Status Reason Start Date Expiration Date V isits Requested Visits Authorized [id number] Closed Auto-Generate d Referral 11/22/2022 12/22/2023 1 1 [facility] Summary Purpose Family History No Family History Records Found Advance Directives No Advanced Directives Records Found Additional Source Comments Source Comments (unrecognize d section and content) In the event this informatio n is protected by the Federal Confidentiality of Alcohol and Drug Abuse Patient Records regulations: The Federal rules restrict any use of the information to criminally investigate or prosecute any alcohol or drug abuse patient.[facility] the event this information is protected by the Federal Confidentiality of Alcohol and Drug Abuse Patient Records regulations: The Federal rules restrict any use of the information to criminally investigate or prosecute any alcohol or drug abuse patient.[facility] the event this information is protected by the Federal Confidentiality of Alcohol and Drug Abuse Patient Records regulations: The Federal rules restrict any use of the information to criminally investigate or prosecute any alcohol or drug abuse patient.[facility] the event this information is protected by the Federal Confidentiality of Alcohol and Drug Abuse Patient Records regulations: The Federal rules restrict any use of the information to criminally investigate or prosecute any alcohol or drug abuse patient.[facility] the event this information is protected by the Federal Confidentiality of Alcohol and Drug Abuse Patient Records regulations: The Federal rules restrict any use of the information to criminally investigate or prosecute any alcohol or drug abuse patient.[facility] the event this information is protected by the Federal Confidentiality of Alcohol and Drug Abuse Patient Records regulations: The Federal rules restrict any use of the information to criminally investigate or prosecute any alcohol or drug abuse patient.[facility] the event this information is protected by the Federal Confidentiality of Alcohol and Drug Abuse Patient Records regulations: The Federal rules restrict any use of the information to criminally investigate or prosecute any alcohol or drug abuse patient.[facility] the event this information is protected by the Federal Confidentiality of Alcohol and Drug Abuse Patient Records regulations: The Federal rules restrict any use of the information to criminally investigate or prosecute any alcohol or drug abuse patient.[facility] the event this information is protected by the Federal Confidentiality of Alcohol and Drug Abuse Patient Records regulations: The Federal rules restrict any use of the information to criminally investigate or prosecute any alcohol or drug abuse patient.[facility] the event this information is protected by the Federal Confidentiality of Alcohol and Drug Abuse Patient Records regulations: The Federal rules restrict any use of the information to criminally investigate or prosecute any alcohol or drug abuse patient.[facility] the event this information is protected by the Federal Confidentiality of Alcohol and Drug Abuse Patient Records regulations: The Federal rules restrict any use of the information to criminally investigate or prosecute any alcohol or drug abuse patient.[facility] Reason for Visit (unrecogniz ed section and content) Reason Onset Date Comments Population Health Navigation Outreach 12/17/2021 [place] [facility] Reason Comments Research F/U PDP [id number] Consent Reason Onset Date Comments Population Health Navigation Outreach 11/22/2022 Navigator [facility] outreach Reason Comments Radiology US Specialty Diagnoses / Procedures Referred By Contac t Referred To Contact US IMAGING Diagnoses Thyroid nodule Procedures US THYROID/PARATHYROID US SOFT TISSUE HEAD & NECK REAL TIME IMGE DOCM Layla Abdul MD [address] [place] [address] Us [facility] [place] [address] Referral ID Status Reason Start Date Expiration Date V isits Requested Visits Authorized [id number] Closed Auto-Generate d Referral 11/04/2022 12/04/2023 1 1 Care Teams (unrecognized sec tion and content) Planner Relationship Specialty Start Date End Date Layla Abdul MD [address] [place] [address] PCP - General Family Practice 06/23/15 Planner Relationship Specialty Start Date End Date Layla Abdul MD [address] [place] [address] PCP - General Family Practice 06/23/15 Planner Relationship Specialty Start Date End Date Layla Abdul MD [address] [place] [address] PCP - General Family Medicine 06/23/15 Planner Relationship Specialty Start Date End Date Layla Abdul MD [address] [place], [place] [id number] PCP - General Family Medicine 06/23/15 Planner Relationship Specialty Start Date End Date Layla Abdul MD [address] [place] [address] PCP - General Family Medicine 06/23/15 Planner Relationship Specialty Start Date End Date Layla Abdul MD [address] [place] [address] PCP - General Family Medicine 06/23/15 Planner Relationship Specialty Start Date End Date Layla Abdul MD [address] [place] [address] PCP - General Family Medicine 06/23/15 Planner Relationship Specialty Start Date End Date Layla Abdul MD [address] [place] [address] PCP - General Family Medicine 06/23/15 Planner Relationship Specialty Start Date End Date Layla Abdul MD [address] [place] [address] PCP - General Family Medicine 06/23/15 Planner Relationship Specialty Start Date End Date Layla Abdul MD [address] [place] [address] PCP - General Family Medicine 06/23/15 INFORMATION SOURCE (unrecogn ized section and content) FOR RECORDS PERTAINING TO PATIENTS WHO ARE OR HAVE BEEN ENROLLED IN A CHEMICAL DEPENDENCY/SUBSTANCEABUSE PROGRAM, SOME INFORMATION MAY BE OMITTED. This clinical summary was aggregated from multiple sources. Caution should be exercised in using it in the provision of clinical care. This summary normalizes information from multiple sources, and as a consequence, information in this document may materially change the coding, format and clinical context of patient data. In addition, data may be omitted in some cases. CLINICAL DECISIONS SHOULD BE BASED ON THE PRIMARY CLINICAL RECORDS. [facility] [employer] [facility]. provides no warranty or guarantee of the accuracy or completeness of information in this document.
[2023-07-27] MEDS: Lactated Ringers 1,000 ML 15 ML IV (08:01)
--- NOTE | 2023-07-27 08:05 | RAD_ITS ---
STUDY: X-RAY - LEFT WRIST REASON FOR EXAM: Female, 68 years old. ORIF of left radius. TECHNIQUE: 2 intraoperative digital documentation view(s) of the wrist were obtained. COMPARISON: July 12, 2023 FINDINGS: 2 intraoperative digital documentation views show volar plate and screw fixation of the distal radial fracture. RAD/Wrist 2 Views IMPRESSION: Intraoperative digital documentation images. Electronically Signed: Joseph Jaramillo MD at 10:59 EST ,
--- NOTE | 2023-07-27 08:16 | PCM.HP.STD ---
HPI - General HPI Narrative DAX DUARTE, is a 68 F who presents for left distal radius open reduction internal fixation. No changes to history and physical exam. Patient wished to proceed. Wrist marked. Risks alternatives benefits as well as postoperative instructions and narcotic counseling. No further questions or concerns. MR#: [id number] Acct: [id number] Name: DAX DUARTE Rep #: [id number] : 1955 Provider: Dr. Oneil Marks MD Age/Sex: 68/F Location[place] [facility] [place] Status: Signed Intake Vital Signs 07/12/2309:28 07/15/2309:15 Height 5 ft 1 in 5 ft 1 in Weight: 108 lb BMI 20.4 Intake Visit Reasons: LEFT WRIST Chief Complaint: left wrist Is patient in pain?: Yes (left wrist) Pain scale (1-10): 4 Allergies Penicillins Allergy (Intermediate, Verified 07/15/23 09:14) HivesSulfa (Sulfonamide Antibiotics) Allergy (Intermediate, Verified 07/15/23 09:14) Hivesmeperidine [From Demerol] Adverse Reaction (Mild, Verified 07/15/23 09:14) Other Medications acetaminophen 650 mg tablet,extended release (Tylenol Arthritis Pain) 650 mg PO Q8H 07/15/23 [History Confirmed 07/15/23] ibuprofen 200 mg tablet 200 mg PO Q6H PRN 07/15/23 [History Confirmed 07/15/23] PFSH Social History Smoking Status: Never smoker HPI LEFT WRIST Details: This documentation accurately reflects the service provided and the decisions made by me, Dr. Oneil Marks MD 07/15/23 0806. Part of today?s visit was documented by [ ], acting as scribe. DAX DUARTE is a 68 year old F here today for L DRF. Was in ED 2 days ago . FOOSH injury. RHD. slipped on black ice. per ED notes Patient presents with left wrist pain that began this morning. Patient states he slipped and fell backwards. Patient states she tried to catch herself with her left hand. Patient describes her pain as aching. Patient states it is worse with movement such as flexion. Patient states it is better with rest. Patient denies any paresthesias or weakness. Patient denies any head injury or loss of consciousness. Patient denies any other injuries. no blood thinners, bordeline HTN, here w . Ortho Exam General General: Yes no acute distress Neurologic: Yes alert and Yes oriented x3 Psychologic: Yes reasonable and appropriate Right Wrist/Hand Skin/Wound: Yes Swelling and Yes Ecchymosis Left Wrist/Hand Skin/Wound: Yes CDI, Yes Swelling, Yes Ecchymosis, Yes nail intact, Yes capillary refill normal and No erythema Left Wrist: Yes TTP Fracture site Motor: EPL: 4, FDP-2: 4, 1st Dorsal Interosseous: 4 and APB: 4 Sensation: Radial: I, Ulnar: I and Median: I WRIST: closed, strong radial pulse, dinner fork deformity Supplemental Info [facility] Imaging Services [address] [place] [address] Wrist min 3 Views MR#: [id number] Acct: [id number] Name: DAX DUARTE Rep #: [id number] : 1955 F 68 From: Rosendo Marino MD PCP: Dr. Teo Ribera MD Status: PRE ER Study: Wrist min 3 Views Date of Exam: 07/12/23 Exam# [id number] Ordering Dr: Abhishek Gresham DO STUDY: X-RAY - LEFT WRIST REASON FOR EXAM: Female, 68 years old. Wrist pain following a fall. TECHNIQUE: 3 view(s) of the wrist were obtained. COMPARISON: None. FINDINGS: There is a comminuted fracture of the distal radial metaphysis with extension to the articular surface. There is evidence of dorsal facing of the radial carpal joint. Avulsion fracture of the ulnar styloid. Normal radiocarpal articulation. Normal distal radioulnar articulation. Normal carpal bones. Normal carpal articulations. Normal carpometacarpal articulation of the thumb. Normal second through fifth carpometacarpal articulations. Normal visualized metacarpal bones. Soft tissue swelling. RAD/Wrist min 3 Views IMPRESSION: Comminuted fracture of the distal radial metaphysis with extension to the articular surface. There is evidence of dorsal facing. Avulsion fracture of the ulnar styloid. Soft tissue swelling. Electronically Signed: Rosendo Marino MD at 10:13 EST , [facility] Imaging Services [address] [facility] [place] [address] Wrist 2 Views MR#: [id number] Acct: [id number] Name: DAX DUARTE Rep #: [id number] : 1955 F 68 From: Rosendo Marino MD PCP: Dr. Teo Ribera MD Status: REG ER Study: Wrist 2 Views Date of Exam: 07/12/23 Exam# [id number] Ordering Dr: Abhishek Gresham DO STUDY: X-RAY - LEFT WRIST REASON FOR EXAM: Female, 68 years old. Distal radius fracture -- Postreduction TECHNIQUE: 2 view(s) of the wrist were obtained. COMPARISON: Comparison is made with prior study done earlier in day. FINDINGS: Post reduction images. Residual dorsal facing is seen. Normal radiocarpal articulation. Normal distal radioulnar articulation. Normal carpal bones. Normal carpal articulations. Normal carpometacarpal articulation of the thumb. Normal second through fifth carpometacarpal articulations. Normal visualized metacarpal bones. Soft tissue swelling. RAD/Wrist 2 Views IMPRESSION: Satisfactory reduction with residual dorsal facing. Electronically Signed: Rosendo Marino MD at 12:30 EST , agree 30 degrees dorsal angulation and intra articular. Coding Level of Care Code Off vis,new,level 3 Diagnoses Fracture of left distal radius S52.502A Assessment and Plan Assessment and Plan (1) Fracture of left distal radius: Status: Acute Plan: 68 F with a left distal radius intra-articular fracture with residual dorsal angulation and quite a bit of initial angulation not fully corrected on the attempted closed reduction. The options here would be open reduction internal fixation versus nonoperative treatment in a cast. Cast treatment more likely to be malunion and stiffness that being said surgery does have risks as well. We discussed the pros and cons risks and benefits of each method of treatment. Patient understands wants to go ahead with left distal radius open reduction internal fixation. I will try to get the case on within the next 2 weeks. For now into wrist splint, recommend ice and elevation, pain control oral medications. Patient asks for short course of oral narcotics did appropriate counseling on asked and will send them to the pharmacy. Pros and cons risks and benefits were discussed with the patient including but not limited to infection, pain, stiffness, bleeding, damage to surrounding structures, neurovascular injury, recurrence or retear, failure or wear of hardware or fixation, instability, fracture, deep vein thrombosis and pulmonary embolism, anesthetic risks, , patient dissatisfaction, need for further surgery and other risks. Patient understood and wished to proceed with surgery, and signed the informed consent documentation. [facility] Medical History (Updated 07/20/23 @ 13:08 by Misty Chung) Arthritis Migraine headache Non-smoker Post-menopausal Thyroid disease Wears glasses Home Medications acetaminophen 650 mg tablet,extended release (Tylenol Arthritis Pain) 650 mg PO Q8H 07/15/23 [History Last Taken Unknown] ibuprofen 200 mg tablet 200 mg PO Q6H PRN pain 07/15/23 [History Last Taken Unknown] Allergy/AdvReac Type Severity Reaction Status Date / Time Penicillins Allergy Intermediate Hives Verified 07/27/23 07:52 Sulfa (Sulfonamide Allergy Intermediate Hives Verified 07/27/23 07:52 Antibiotics) meperidine [From Demerol] AdvReac Mild Other Verified 07/27/23 07:52 Surgical History (Updated 07/20/23 @ 13:08 by Misty Chung) Hx of colonoscopy Social History Smoking Status: Never smoker Vital Signs Vital Signs Vital Signs: 07/27/23 07:52 Temperature 98.3 F Temperature Source Temporal Pulse Rate 100 Respiratory Rate 18 Blood Pressure 161/90 H Blood Pressure Mean 113 Blood Pressure Source Monitor Blood Pressure Position Sitting Blood Pressure Location Right Arm Pulse Ox 18 Oxygen Delivery Method Room Air Weight Weight: 103 lb Body Mass Index (BMI) 19.4
[2023-07-27] MEDS: Cefazolin 2 GM in 0.9% Normal Saline (100mL Bag) 100 ML IV (08:51)
--- NOTE | 2023-07-27 10:45 | OP.PCM_ITS ---
Problems Associated Problem List Diagnoses (1) Fracture of left distal radius: Report of Operation Date of Procedure: 07/27/23 Pre-Operative Diagnosis: Left distal radius fracture Post-Operative Diagnosis: Same Surgery/Procedure Performed:: Left distal radius open reduction internal fixation Surgeon: Oneil Marks Type of Anesthesia: General and Local Anesthesiologist: Omari Rolle Estimated Blood Loss (mL): 50 Description of Procedure: Patient brought the operating room theater. Placed supine on the table. General anesthesia induced. 2 g IV Ancef ministered prior to the start of procedure. All bony prominences appropriately padded. SCD on the legs. 18 inch tourniquet applied to left upper extremity appropriately padded. Arm table to the patient's left side. Preoperative timeout performed to confirm the site patient and the surgery. Began by exsanguinating the limb inflated the tourniquet to 250 mmHg. I made a standard longitudinal incision over the FCR tendon. Dissection down through skin and subcutaneous tissue achieved meticulous hemostasis. Incised the fascia as well as the sub sheath at the FCR tendon retracted this radially. Identified the FPL muscle belly retracted this ulnarly. I made an L-shaped incision of the pronator quadratus fascia elevated that from radial to ulnar. Identified the radial styloid fragment. I released the brachial radialis tendon. There was some moderate to comminution in that area. I mobilized any fracture fragments and hematoma and identified the fracture site cleared away any interposed periosteum. Achieved preliminary reduction. I try to use a K wire at the radial styloid site but this was resulting in a malreduction. I used longitudinal traction and ulnar deviation to achieve a reduction of the fracture. This achieved good length and volar tilt zoroastrian as well as a inclination. I used the Arthrex narrow precontoured volar locking plate. Placed this on the distal fragment with the proximal aspect of the plate up slightly from the bone. I used 2.4 mm locking screws distally unit cortically abutting the distal cortex. I filled all 6 screw holes. I placed 2 of the locking screws in the radial styloid. As there was a split in the joint I ensured that the plate was slightly more ulnar (3 fragments). I then reduced the plate to the bone using a 2.4 mm cortical screw in the oblong hole. I also placed 2 other 2.4 mm locking screws these were all 12 mm long to secured the plate proximally. Reduction was anatomic. There was a small ulnar tip of the styloid fracture that left alone in typical fashion. Final arthroscopy pictures were taken and saved onto the system including I did a 30 degree lateral oblique view to ensure no screw penetration into the joint and no crepitus with range of motion testing and dorsal wrist flexion view to check lengths. The screws were co linear. Tourniquet let down meticulous hemostasis achieved irrigation performed with normal saline. Subcutaneous tissue closed with 2-0 Vicryl suture and skin with 3-0 Monocryl. 7 cc of quarter percent bupivacaine instilled around the incision site. Skin cleaned with wet dry dressing followed application of Steri-Strips Adaptic 4 x 4 gauze sterile cast padding and a volar fiberglass splint overwrapped loosely with Javed wrap. Patient woken up from a general anesthetic transferred off the operating table and taken postanesthetic care unit in stable condition. All sponge needle instrument counts were correct. cpt [id number] Complications none Admit VTE Documentation VTE Present on Admission: No VTE Mechan Device Prophylaxis: SCD's VTE Pharm Prophylaxis ordered?: No Reason prophylaxis not ordered:: Treatment Not Indicated Procedures Musculoskeletal 20xxx-29xxx: Other Procedure See Report
--- NOTE | 2023-07-27 10:54 | DCINST_ITS ---
Discharge Instructions Diet Discharge Diet: No restrictions Activity Discharge Activity: May Not Drive Ice area for (Minutes): 10 Weight Bearing Status: No weight bearing Lifting Restrictions: ok for finger and elbow ROM, no lifting over 1 pound Keep extremity elevated above heart level: Operative Extremity Dressing / Incision Call your doctor if your incision/area has: Continuous Slow Oozing, Sudden Increased Bleeding, Increased Pain/ Swelling, Increased Redness, Foul Smelling Discharge and Swelling at the incision site Remove Dressing in: leave in place till F/U Cleanse incision/area with: Do not get Incision Wet Follow Up Care Please Follow Up With: Oneil Marks MD When: 2 days Test Results: Test results from this visit will be discussed in further detail at your follow- up appointment, if applicable. Discharge Plan Admission Attending Provider: Oneil Marks Primary Care Provider: Teo Ribera Instructions Patient Instructions: Distal Radius Fx Discharge Orders/Prescriptions Prescriptions: New oxycodone-acetaminophen [Percocet] 5-325 mg tablet 1 tab PO Q4H MDD 6 PRN (Reason: pain) 5 Days Qty: 30 0RF No Action acetaminophen [Tylenol Arthritis Pain] 650 mg tablet extended release 650 mg PO Q8H ibuprofen 200 mg tablet 200 mg PO Q6H PRN (Reason: pain) Referrals / Follow Up: Teo Ribera MD [Primary Care Provider] - Oneil Marks MD [Med Staff - Active Staff] - Disposition Disposition (needs filled in before D/C Order can be placed): Home, Self Care
--- NOTE | 2023-07-27 14:00 | SUR.PHASEII ---
pt dizzy and nauseated, worse when stands, pt will hardly open eyes. VSS. zofran given. pt resting in bed.
== END 2023-07-27 15:40 | disposition home or self-care (01) ==
LOC: SDC 07:26 → AC 07:28
PROVIDERS: PCP Family Medicine; Referring Provider Orthopaedic Surgery Sports Medicine; Visit Provider Orthopaedic Surgery Sports Medicine
PROC: (CPT 25609; principal; 2023-07-27 08:45)
DX: S52.502A Unspecified fracture of the lower end of left radius, initial encounter for closed fracture (principal); W00.0XXA Fall on same level due to ice and snow, initial encounter
CPT/HCPCS: 25609; 01830; 73100; 76000; 93005; C1713; J7120; J2405

== ENCOUNTER 2023-11-29 13:00 | Outpatient (RCR) | payer MEDICARE, SELFPAY ==
--- NOTE | 2023-08-17 08:21 | HP.OTEVAL_ITS ---
Patient's Visit Information Visit Information Visit Information: DAX DUARTE is a 68 year old F, referred to Occupational Therapy by Dr. Oneil Marks MD, with a diagnosis of left distal radius fx. Date of Evaluation: 08/16/23 Occupational Therapist: Laury Fox, BIANCA/Nette, CHT Subjective Subjective: This 68 year old female was seen for OT eval with dx of left distal radius fx. pt states she had a fall on Jul.02 due to swelling pt was delay in sx. sx on 2023 for ORIF for distal radius fx. pt arrives with brace but not on as the ulnar styloid is irritated- pt states she just has increase pain whenever she puts her brace on. pt is right handed prior to fall she was ind.with all ADLS and IADLS as well as driving. ADLs Dressing: Pants Fasteners: Tie shoes and Buttons Eating: Use silverware Bathing: Handle washcloth & soap Kitchen: Chop with knife, Peel fruits & vegetables, Open jars and Open bottle caps Household: Vacuum, Sweep/mop and Laundry Comments: the above list pt unable to perform pt spouse assist pt with all ADLs at this time due to pts limited functional use of left UE. Pain left wrist/hand: Current Pain Intensity: 0 Pain Intensity Range: 1 ROM Forearm: right WNL left limited Wrist: right 65/70 left 10 /25 ROM Comments: MCP left average ext-40* pt limited with full MCP ext as she has questionable scar adhesions increasing her discomfort with movement- pt also demo with trace of IP flex indication of possible scar adhesions. Strength Binding Cutter Synthetic Cloth: right 45# left NT Lateral Pinch: right 6# left NT Tripod Pinch: right 6# left NT Strength Comments: will test left at later time Sensation Sensation Comments: tingling left digits pt states does not feel like her hand is attached Quick DASH-Disab of Arm,Shoulder& Hand Quick DASH Score: 72.5000 Hand/Wrist Evaluation Total Score of Pain & Functional Sections: 68 Goals Goal:: Pt will demo the ability to form a composite fist to hold and receive 10 coins without dropping coins/ and coin manipulation/money mtg. tasks and ind. With manipulating fasteners for dressing by D/C. Goal:: Pt will demo understanding of joint protection and ergonomics when performing BADLs and IADLs by d/c Pt will demo understanding of adaptive Equipment use to decrease stress on joints to allow pt to perform BADSL and IADLS at LEXUS level. Goal:100% adherence to protocol: Yes Comment: ORIF of distal radius Goal:Daily scar massage when approriate: Yes Goal:ROM equal to unaffected hand: Yes Goal:Binding Cutter Synthetic Cloth/Pinch strength at least 75% of unaffected hand: Yes Comment: will not initiate strength until Dr. blanco Goal:No pain with affected hand use: Yes Goal:Full use of affected hand in daily activities including work: Yes Goal:Decrease scar hypersensitivity: Yes Rehabilitation General Assessment: pt arrives 2 weeks and 6 day s/p from ORIF of left distal radius. pt demo with limited AROM, digit ROM and initiation of scar adhesions- due to newly healing structures pt is unable to use left UE with ADLs and IADLs. Pt would benefit from skilled OT services 1-2x week for 6- 8 weeks. Today therapist ed. pt on scar mtg, AROM for wrist and digits- pt demo understanding- Therapy will continue to improve pts functional ROM and when released by will initiate PRE as tolerated. Pt demo understanding of ex and agrees to POC. Rehabilitation Potential: Good Anticipated Interventions Anticipated Interventions: A/AAROM/PROM, Strengthening, Scar Care, Triggerpoint Release, Desensitization, Sensory Retraining, Modalities, Orthoses, Joint Protection/Energy Conservation, Ergonomic Education, Fine Motor Coord/Best, Sensory Stimulation, Education re assistive Equipment, Education re Diagnosis, Caregiver Training and Home Program Visit Plan Frequency: 1-2x /Week Duration: 6-8 weeks TEXT: Thank you for the opportunity to evaluate your patient. For Medicare and Medicare HMO plans, please review the plan of care and approve it. It will need to be FAXED BACK to us at [phone] for Medicare purposes. Please let me know if there are questions or concerns regarding this plan of care. Physician Signature: Date:
--- NOTE | 2023-09-16 07:18 | OTREVAL_ITS ---
Re-Evaluation Intro: Dr. Oneil Marks MD, It has been my pleasure to treat DAX DUARTE over the last 10 visits for left distal radius fx. Please see the progress note below for an update on the occupational therapy plan of care! Subjective Subjective: pt arrives to OT session with compression glove on- states she has been able to use finger tips with putting her socks on as well as with other dressing tasks. Pt still has concerns with her scar, limited ability to make a fist and inability to fully turn palm up or down. Objective Objective/Function: left wrist 25/30 increase from 05/18 left forearm supination 60* increase from 0 left forearm pronation 45* increase from 0 Due to limited forearm supination pronation pt is compensating at her shoulder with IR and ER this is causing increase pain and tenders in left shoulder- ( therapist advised pt to make sure she is performing light AROM in all plans to what her comfort is) pt is unable to form a composite fist at this time- she is 1.5 away this has improved from 2.5 away pt demo with a 5# safekeeping clerk strength a increase from unable. pt demo with scar adhesions on limiting IP flexion of thumb increasing pts use of left CMC motion to get pinch on large objects. pt is making gains with her recovery but due to edema and scar and complexity of fx pt continues to struggle with perform her ADLs and IADLs at her PLOF. Pt would benefit from further skilled OT services 2-3x week for 12 weeks. Pt demo understanding and agrees to POC. Plan Plan Frequency: 2-3x /Week Duration: 3 Months Visits in this POC: 24 Plan: cont with AROM light safekeeping clerk for putty FES to increase muscle contraction Scar mtg use of elastomer PROM Goals Goals Patient Goals: Regain Mobility, Regain Strength, Improve Fine Motor Skills, Use Hand/Wrist/Arm Normally Again, Increase ROM, Be More Independent in ADLS and Resume Former Household Responsibilities (Cooking,Cleaning,Yard, etc.) Goal:: Pt will demo the ability to form a composite fist to hold and receive 10 coins without dropping coins/ and coin manipulation/money mtg. tasks and ind. With manipulating fasteners for dressing by D/C. Goal:: Pt will demo understanding of joint protection and ergonomics when performing BADLs and IADLs by d/c Pt will demo understanding of adaptive Equipment use to decrease stress on joints to allow pt to perform BADSL and IADLS at LEXUS level. Goal:100% adherence to protocol: Yes Goal:Daily scar massage when approriate: Yes Goal Progress: Progressing Goal:ROM equal to unaffected hand: Yes Goal Progress: Progressing Goal:Service Order Expediter/Pinch strength at least 75% of unaffected hand: Yes Goal Progress: progressing at 5# Goal:No pain with affected hand use: Yes Goal:Full use of affected hand in daily activities including work: Yes Goal:Decrease scar hypersensitivity: Yes Anticipated Interventions Anticipated Interventions Anticipated Interventions: A/AAROM/PROM, Strengthening, Scar Care, Triggerpoint Release, Desensitization, Sensory Retraining, Modalities, Orthoses, Joint Protection/Energy Conservation, Ergonomic Education, Fine Motor Coord/Best, Sensory Stimulation, Education re assistive Equipment, Education re Diagnosis, Caregiver Training and Home Program Re-Evaluation Ending Re-evaluation ending: Please do not hesitate to contact me at [phone] by phone or if you have questions or concerns regarding this new plan of care! Sincerely, Laury Fox, OTR/L, CHT
--- NOTE | 2023-09-30 07:31 | OTREVAL_ITS ---
Re-Evaluation Intro: Dr. Oneil Marks MD, It has been my pleasure to treat DAX DUARTE over the last 4 visits for left distal radius fx. Please see the progress note below for an update on the occupational therapy plan of care! Subjective Subjective: pt arrives with spouse states she is doing OK trying to use her hand more still has swelling and stiffness states she is doing exercises 3-4 x a day if she has increase pain ( may be related to weather changes) pt states she backs off on her ex. Objective Objective/Function: wrist ROM 20/30 increase from 5/[address] 10 UD 5 sup 45*increase from 0 pron 60 * increase from 40* pt continues to demo limited ROM of wrist extension ( may be due to scar adhesions) thumb IP flexion is getting better, forearm Pron/sup continues to challenge pt. Due to this limited forearm rotation pt is compensating at shoulder increasing soreness. therapist has ed. pt on AAROM and to prevent compensation. pt demo understanding. Pt continues to struggle as well as limited composite fist. Hand is more swollen in AM increasing joint PIP tightness. pt has initiated research and evaluation analyst strengthening and UB strengthening as cat. pt does have compression glove she will use on and off. \ pt would benefit from further skilled OT services 2x week for 8 weeks to continue to strength and improve pts ROM. Plan Plan Frequency: 2-3x /Week Duration: 3 Months Visits in this POC: 13 Plan: cont with AROM light research and evaluation analyst for putty FES to increase muscle contraction Scar mtg use of elastomer PROM Goals Goals Patient Goals: Regain Mobility, Regain Strength, Improve Fine Motor Skills, Use Hand/Wrist/Arm Normally Again, Increase ROM, Be More Independent in ADLS and Resume Former Household Responsibilities (Cooking,Cleaning,Yard, etc.) Goal:: Pt will demo the ability to form a composite fist to hold and receive 10 coins without dropping coins/ and coin manipulation/money mtg. tasks and ind. With manipulating fasteners for dressing by D/C. Goal:: Pt will demo understanding of joint protection and ergonomics when performing BADLs and IADLs by d/c Pt will demo understanding of adaptive Equipment use to decrease stress on joints to allow pt to perform BADSL and IADLS at LEXUS level. Goal:100% adherence to protocol: Yes Goal:Daily scar massage when approriate: Yes Goal Progress: Progressing Goal:ROM equal to unaffected hand: Yes Goal Progress: Progressing Goal:Media Relations Director/Pinch strength at least 75% of unaffected hand: Yes Goal Progress: progressing at 5# Goal:No pain with affected hand use: Yes Goal:Full use of affected hand in daily activities including work: Yes Goal:Decrease scar hypersensitivity: Yes Anticipated Interventions Anticipated Interventions Anticipated Interventions: A/AAROM/PROM, Strengthening, Scar Care, Triggerpoint Release, Desensitization, Sensory Retraining, Modalities, Orthoses, Joint Protection/Energy Conservation, Ergonomic Education, Fine Motor Coord/Best, Sensory Stimulation, Education re assistive Equipment, Education re Diagnosis, Caregiver Training and Home Program Re-Evaluation Ending Re-evaluation ending: Please do not hesitate to contact me at [phone] by phone or if you have questions or concerns regarding this new plan of care! Sincerely, Laury Fox, OTR/L, CHT
--- NOTE | 2023-10-27 15:44 | OTREVAL_ITS ---
Re-Evaluation Intro: Dr. Oneil Marks MD, It has been my pleasure to treat DAX DUARTE over the last 12 visits for left distal radius fx. Please see the progress note below for an update on the occupational therapy plan of care! Subjective Subjective: pt arrives states she is compliant with her HEP of PROM AAROM edema and strengthening. pt states she is trying to use her left UE with ADLs and IADLs but does get frustrated due to continued ROM deficits. pt feels strength continues to improve but still limits use of left UE with putting dishes away or picking up a grocery bag. Objective Objective/Function: left forearm pronation 45* left forearm supination 60* wrist ROM 30/40 left inspector scales strength 20# right is 40# left lateral pinch 8# right 16# left tripod pinch 7# right 12# pts left hand swelling and scar adhesions initially limited pts ROM gains- pt has now been able to consistently form a composite fist and initiate strengthening. pt continues to make gains with her strength- pt continues to demo with compensatory tania. due to her limited supination/pronation wrist extension has improved but continues to limit pt with use of left UE with bathing/ dressing tasks- pt would benefit from further skilled OT services 2x week for 8 weeks to increase pts ROM and strength. Plan Plan Frequency: 2x /Week Duration: 6 Weeks Visits in this POC: 12 Plan: cont with AROM light inspector scales for putty FES to increase muscle contraction Scar mtg use of elastomer PROM Goals Goals Patient Goals: Regain Mobility, Regain Strength, Improve Fine Motor Skills, Use Hand/Wrist/Arm Normally Again, Increase ROM, Be More Independent in ADLS and Resume Former Household Responsibilities (Cooking,Cleaning,Yard, etc.) Goal:: Pt will demo the ability to form a composite fist to hold and receive 10 coins without dropping coins/ and coin manipulation/money mtg. tasks and ind. With manipulating fasteners for dressing by D/C. Goal:: Pt will demo understanding of joint protection and ergonomics when performing BADLs and IADLs by d/c Pt will demo understanding of adaptive Equipment use to decrease stress on joints to allow pt to perform BADSL and IADLS at LEXUS level. Goal:100% adherence to protocol: Yes Goal:Daily scar massage when approriate: Yes Goal Progress: Progressing Goal:ROM equal to unaffected hand: Yes Goal Progress: Progressing Goal:Sexual Assault Nurse/Pinch strength at least 75% of unaffected hand: Yes Goal Progress: progressing at 5# Goal:No pain with affected hand use: Yes Goal:Full use of affected hand in daily activities including work: Yes Goal:Decrease scar hypersensitivity: Yes Anticipated Interventions Anticipated Interventions Anticipated Interventions: A/AAROM/PROM, Strengthening, Scar Care, Triggerpoint Release, Desensitization, Sensory Retraining, Modalities, Orthoses, Joint Protection/Energy Conservation, Ergonomic Education, Fine Motor Coord/Best, Sensory Stimulation, Education re assistive Equipment, Education re Diagnosis, Caregiver Training and Home Program Re-Evaluation Ending Re-evaluation ending: Please do not hesitate to contact me at [phone] by phone or if you have questions or concerns regarding this new plan of care! Sincerely, Laury Fox OTR/L, CHT
--- NOTE | 2023-11-01 16:24 | HP.OTREVAL ---
Re-Evaluation Intro: Dr. Oneil Marks MD, It has been my pleasure to treat DAX DUARTE over the last 13 visits for left distal radius fx. Please see the progress note below for an update on the occupational therapy plan of care! Subjective Subjective: pt arrives to session states she continues to have difficulty with forearm sup/pron limiting pts IND. limited wrist ex and difficulty putting wt. on left UE Objective Objective/Function: left forearm pronation 45* right 80* left forearm supination 60* right 80* Left wrist ROM 30/40 right 65/70 left client services representative strength 20# right is 40# left lateral pinch 8# right 16# left tripod pinch 7# right 12# pts left hand swelling and scar adhesions initially limited pts ROM gains- pt has now been able to consistently form a composite fist and initiate strengthening. pt continues to make gains with her strength- pt continues to demo with compensatory tania. due to her limited supination/pronation wrist extension has improved but continues to limit pt with use of left UE with bathing/ dressing tasks- pt would benefit from further skilled OT services 2x week for 8 weeks to increase pts ROM and strength. Plan Plan Frequency: 2x /Week Duration: 6 Weeks Visits in this POC: 13 Plan: cont with AROM light client services representative for putty FES to increase muscle contraction Scar mtg use of elastomer PROM Goals Goals Patient Goals: Regain Mobility, Regain Strength, Improve Fine Motor Skills, Use Hand/Wrist/Arm Normally Again, Increase ROM, Be More Independent in ADLS and Resume Former Household Responsibilities (Cooking,Cleaning,Yard, etc.) Goal:: Pt will demo the ability to form a composite fist to hold and receive 10 coins without dropping coins/ and coin manipulation/money mtg. tasks and ind. With manipulating fasteners for dressing by D/C. Goal:: Pt will demo understanding of joint protection and ergonomics when performing BADLs and IADLs by d/c Pt will demo understanding of adaptive Equipment use to decrease stress on joints to allow pt to perform BADSL and IADLS at LEXUS level. Goal:100% adherence to protocol: Yes Goal:Daily scar massage when approriate: Yes Goal Progress: Progressing Goal:ROM equal to unaffected hand: Yes Goal Progress: Progressing Goal:Biometrics Technician/Pinch strength at least 75% of unaffected hand: Yes Goal Progress: progressing at 50% Goal:No pain with affected hand use: Yes Goal:PIP Circumferences equal to unaffected hand: Yes Goal:Full use of affected hand in daily activities including work: Yes Goal Progress: Progressing Goal:Decrease scar hypersensitivity: Yes (Goal Met) Anticipated Interventions Anticipated Interventions Anticipated Interventions: A/AAROM/PROM, Strengthening, Scar Care, Triggerpoint Release, Desensitization, Sensory Retraining, Modalities, Orthoses, Joint Protection/Energy Conservation, Ergonomic Education, Fine Motor Coord/Best, Sensory Stimulation, Education re assistive Equipment, Education re Diagnosis, Caregiver Training and Home Program Re-Evaluation Ending Re-evaluation ending: Please do not hesitate to contact me at [phone] by phone or if you have questions or concerns regarding this new plan of care! Sincerely, Laury Fox OTR/L, CHT
--- NOTE | 2023-11-01 16:29 | OTREVAL_ITS ---
Re-Evaluation Intro: Dr. Oneil Marks MD, It has been my pleasure to treat DAX DUARTE over the last 13 visits for left distal radius fx. Please see the progress note below for an update on the occupational therapy plan of care! Subjective Subjective: pt arrives to session states she continues to have difficulty with forearm sup/pron limiting pts IND. limited wrist ex and difficulty putting wt. on left UE Objective Objective/Function: left forearm pronation 45* right 80* left forearm supination 60* right 80* Left wrist ROM 30/40 right 65/70 left associate professor of management strength 20# right is 40# left lateral pinch 8# right 16# left tripod pinch 7# right 12# pts left hand swelling and scar adhesions initially limited pts ROM gains- pt has now been able to consistently form a composite fist and initiate strengthening. pt continues to make gains with her strength- pt continues to demo with compensatory tania. due to her limited supination/pronation wrist extension has improved but continues to limit pt with use of left UE with bathing/ dressing tasks- pt would benefit from further skilled OT services 2x week for 8 weeks to increase pts ROM and strength. Plan Plan Frequency: 2x /Week Duration: 6 Weeks Visits in this POC: 13 Plan: cont with AROM light associate professor of management for putty FES to increase muscle contraction Scar mtg use of elastomer PROM Goals Goals Patient Goals: Regain Mobility, Regain Strength, Improve Fine Motor Skills, Use Hand/Wrist/Arm Normally Again, Increase ROM, Be More Independent in ADLS and Resume Former Household Responsibilities (Cooking,Cleaning,Yard, etc.) Goal:: Pt will demo the ability to form a composite fist to hold and receive 10 coins without dropping coins/ and coin manipulation/money mtg. tasks and ind. With manipulating fasteners for dressing by D/C. Goal:: Pt will demo understanding of joint protection and ergonomics when performing BADLs and IADLs by d/c Pt will demo understanding of adaptive Equipment use to decrease stress on joints to allow pt to perform BADSL and IADLS at LEXUS level. Goal:100% adherence to protocol: Yes Goal:Daily scar massage when approriate: Yes Goal Progress: Progressing Goal:ROM equal to unaffected hand: Yes Goal Progress: Progressing Goal:Renewable Energy Technician/Pinch strength at least 75% of unaffected hand: Yes Goal Progress: progressing at 50% Goal:No pain with affected hand use: Yes Goal:PIP Circumferences equal to unaffected hand: Yes Goal:Full use of affected hand in daily activities including work: Yes Goal Progress: Progressing Goal:Decrease scar hypersensitivity: Yes (Goal Met) Anticipated Interventions Anticipated Interventions Anticipated Interventions: A/AAROM/PROM, Strengthening, Scar Care, Triggerpoint Release, Desensitization, Sensory Retraining, Modalities, Orthoses, Joint Protection/Energy Conservation, Ergonomic Education, Fine Motor Coord/Best, Sensory Stimulation, Education re assistive Equipment, Education re Diagnosis, Caregiver Training and Home Program Re-Evaluation Ending Re-evaluation ending: Please do not hesitate to contact me at [phone] by phone or if you have questions or concerns regarding this new plan of care! Sincerely, Laury Fox OTR/L, CHT
--- NOTE | 2023-11-29 15:58 | HP.OTDCSUM ---
Discharge Summary D/C Summary: It has been my pleasure to treat DAX DUARTE under orders from Dr. Oneil Marks MD, for the diagnosis of left distal radius fx for a total of 4 visit(s). Please see the following information for a summary of their discharge status. Overall Improvement % Improvement: 60 Objective Objective/Function: left forearm pronation 50* right 80* left forearm supination 45* right 80* Left wrist ROM 20/20 right 65/70 pt demo the ability to from a straight fist- composite fist limited by DIP flex. left multimedia specialist strength 25# right is 40# left lateral pinch 10# right 16# left tripod pinch 10# right 12# pts states she has been LEXUS with her ADls and IADLs at this time as her motion limits full forearm sup/pron as well as wrist ext limits her daily tasks. pt will cont with her HEP. Advised pt if she felt she did not make gains in next 3 months with her ROM and strength she could return and could adj. her HEP. Pt demo understanding and agree to d/c at this time due to insurance limits. Goals Patient Goals: Regain Mobility, Regain Strength, Improve Fine Motor Skills, Use Hand/Wrist/Arm Normally Again, Increase ROM, Be More Independent in ADLS and Resume Former Household Responsibilities (Cooking,Cleaning,Yard, etc.) Goal:: Pt will demo the ability to form a composite fist to hold and receive 10 coins without dropping coins/ and coin manipulation/money mtg. tasks and ind. With manipulating fasteners for dressing by D/C. Goal met with zippers/buttons/ tie shoes/ 8/10 coins (progress) Goal:: Pt will demo understanding of joint protection and ergonomics when performing BADLs and IADLs by d/c (goal met) Pt will demo understanding of adaptive Equipment use to decrease stress on joints to allow pt to perform BADSL and IADLS at LEXUS level. (goal met) Goal:100% adherence to protocol: Yes Goal:Daily scar massage when approriate: Yes Goal Progress: Progressing Goal:ROM equal to unaffected hand: Yes Goal Progress: Progressing Goal:Feed Mill Tender/Pinch strength at least 75% of unaffected hand: Yes Goal Progress: Progressing Goal:No pain with affected hand use: Yes Goal:PIP Circumferences equal to unaffected hand: Yes Goal:Full use of affected hand in daily activities including work: Yes Goal Progress: Progressing Goal:Decrease scar hypersensitivity: Yes Plan Plan: D/C with HEP D/C Information Discharge Comments: pt has been seen in OT for left distal radius fx with ORIF of distal radius. pt has had complications of scar adhesions limiting pts ROM- following ex she can gain about 10*. Pt also demo with a left shoulder irritation (pain) limiting pts full functional ROM of left shoulder. ( therapist has given shoulder AAROM and PROM HEP ) pt demo understanding of PROM forearm supination/pronation and wrist flex/ext. therapist ed. pt on cont. with stretching and return to use of left UE as able. pt is strengthening with t-band and putty as tolerated pt demo understanding and agrees to D/c. with HEP d/c sentence: If there are questions or concerns regarding this patient's occupational therapy, please fell free to call me at [phone]. Thank you for the referral of this patient. Sincerely, Laury Fox, OTR/L, CHT
== END 2023-11-29 19:00 | disposition home or self-care (01) ==
LOC: OT 13:00
PROVIDERS: PCP Family Medicine; Referring Provider Orthopaedic Surgery Sports Medicine; Visit Provider Orthopaedic Surgery Sports Medicine
DX: S52.502D Unspecified fracture of the lower end of left radius, subsequent encounter for closed fracture with routine healing (principal)
CPT/HCPCS: 97110; 97140; 97166; 97530

== ENCOUNTER 2024-09-03 10:00 | Outpatient (RCR) | payer MEDICARE, SELFPAY ==
--- NOTE | 2024-06-14 06:58 | HP.OTEVAL_ITS ---
Patient's Visit Information Visit Information Visit Information: DAX DUARTE is a 69 year old F, referred to Occupational Therapy by Dr. 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 Date of Evaluation: 06/13/24 Occupational Therapist: Laury Fox, OTR/Nette, CHT Subjective Subjective: This 69 year old female was seen for OT eval with dx of unspecified complication of internal orthopedic prosthetic device implant and graft. Pt had initial fall 2023 suffering left wrist fx and ORIF performed Jul 2023. pt developed complications of scar adhesions and symptoms of tingling of left thumb, IF and MF. Despite pts compliance with her HEP she made minimal gains in getting return of her left hand/wrist function. Pt states she was walking and felt and heard loud pop. She decieied to see Dr. Cleveland and after further discussion realized she needed to undergo sx. pt underwent sx on 2023: Metal removal left wrist with insertion bone bank bone graft 2 neurolysis median nerve in forearm - insert neurogen tubule left forearm flexor tenosynovectomy left forearm scar revision with advancement flap left forearm 1x 10cm left open CTR tenolysis left FCR tendon on 05/28/24. Pt states she is currently limited with use of her left hand with ADLs and IADls at this time. Pt states she is hopeful sx will decrease symptoms of tingling and pain. ADLs Comments: pt has help from spouse for all daily occupations at this time Pain left wrist: Current Pain Intensity: 3 Pain Intensity Range: 3 and 5 ROM Forearm: right supination 75*left supination 40* Wrist: right 62*/55* left 25*/35* IP: flexion right 45*left 10* ( pt needs cues to not compensate) ROM Comments: left RD [address] 15 UD 30 Pt demo with IF limited composite flexion by 3cm from distal palmar crease- pt demo with MF limited composite flexion by 2cm from distal palmar crease pt demo with RF and LF full composite flexion Strength Tobacco Cloth Reclaimer: right 45# left 18# Lateral Pinch: right 14# left 8# Tripod Pinch: right 12# left 6# Sensation Thumb: right 2.83 left 2.83 interpretation normal sensation Index: right 2.83 left 2.83 interpretation normal sensation Middle: right 2.83 left 2.83 interpretation normal sensation Ring: right 2.83 left 2.83 interpretation normal sensation Little: right 2.83 left 2.83 interpretation normal sensation Quick DASH-Disab of Arm,Shoulder& Hand Quick DASH Score: 59.0900 Hand/Wrist Evaluation Total Score of Pain & Functional Sections: 60 Goals Goal:Daily scar massage when approriate: Yes Goal:ROM equal to unaffected hand: Yes Goal:Tobacco Cloth Reclaimer/Pinch strength at least 75% of unaffected hand: Yes Goal:No pain with affected hand use: Yes Goal:Full use of affected hand in daily activities including work: Yes Goal:Decrease scar hypersensitivity: Yes Rehabilitation General Assessment: pt arrives 2 weeks and 2 days s/p from metal removal left wrsit insertion bone bank bone graft, Neurolysis median nerve in forearm , insert neurogen tubule left forearm, flexor tenosynovectomy left forearm - scar revision with advancement flap left forearm 1x10 cm - left open CTR - tenolysis Left FCR tendon. Due to recent sx pt is limited with use of left UE with all ADLS and IADLs. pt would benefit from skilled OT services 2-3x week for 6-8 weeks to return pt to IND level with ADLs and IADLs. Today therapist ed. pt on cont. on ex every hour: tendon glides and active ROM of thumb, digits and wrist. Therapist advised to perform exercise slowly as well as holding stretch for longer periods of time (8-10 sec) . Therapist did give pt elastomer and instructed pt to use at night when her brace was on. pt and spouse demo understanding. Therapist ed. pt and spouse on scar mtg allowing skin mobilization vs rubbing surface of skin. Pt and pts spouse demo understand and agree to POC. Rehabilitation Potential: Good Anticipated Interventions Anticipated Interventions: A/AAROM/PROM, Strengthening, Scar Care, Triggerpoint Release, Desensitization, Modalities, Orthoses, Joint Protection/Energy Conservation, Ergonomic Education, Fine Motor Coord/Best, Education re assistive Equipment, Education re Diagnosis, Caregiver Training and Home Program Visit Plan General Plan: initiate ROM to gain composite fist Modalities US improve pts wrist and forearm ROM scar mtg elastomer initiate light daily use of left hand strength as cat. initiate 6 weeks s/p TEXT: Thank you for the opportunity to evaluate your patient. For Medicare and Medicare HMO plans, please review the plan of care and approve it. It will need to be FAXED BACK to us at [phone] for Medicare purposes. Please let me know if there are questions or concerns regarding this plan of care. Physician Signature: Date:
--- NOTE | 2024-09-03 13:58 | HP.OTDCSUM ---
Discharge Summary D/C Summary: It has been my pleasure to treat DAX DUARTE under orders from Dr. 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 Please see the following information for a summary of their discharge status. Overall Improvement % Improvement: 80 Objective Objective/Function: left wrist ext. 35* passive ROM 45* UD 5* 35# left piano maker strength pt demo full composite fist pt demo with supination at 70* pt will cont.with HEP for stretching and started silver sneakers to cont. working with wts in the gym. pt reports she is IND with ADls and agrees with D.C. Goals Patient Goals: Regain Mobility, Regain Strength, Use Hand/Wrist/Arm Normally Again, Decrease Tingling/Numbness, Increase ROM, Be More Independent in ADLS and Resume Former Household Responsibilities (Cooking,Cleaning,Yard, etc.) Goal:Daily scar massage when approriate: Yes Goal Progress: Goal Met Goal:ROM equal to unaffected hand: Yes Goal Progress: Progressing Goal:Electric Appliance Installer/Pinch strength at least 75% of unaffected hand: Yes Goal Progress: Progressing Goal:No pain with affected hand use: Yes Goal:Full use of affected hand in daily activities including work: Yes Goal:Decrease scar hypersensitivity: Yes Plan Plan: pt has two visits left and would like to transition to some of the gym eq. will work with free wts for UB next visit D/C Information Discharge Comments: pt was seen for 13 OT sessions d/c sentence: If there are questions or concerns regarding this patient's occupational therapy, please fell free to call me at [phone]. Thank you for the referral of this patient. Sincerely, Laury Fox, OTR/L, CHT
== END 2024-09-03 15:47 | disposition home or self-care (01) ==
LOC: OT 10:00
PROVIDERS: PCP Family Medicine; Referring Provider Orthopaedic Surgery; Visit Provider Orthopaedic Surgery
DX: T84.9XXD Unspecified complication of internal orthopedic prosthetic device, implant and graft, subsequent encounter (principal)
CPT/HCPCS: 97035; 97110; 97140; 97166; 97530

== ENCOUNTER → 2025-06-10 | Outpatient (CLI) | payer MEDICARE, SELFPAY | END | disposition home or self-care (01) | LOC: LABSPEC 15:28 | PROVIDERS: PCP Family Medicine; Referring Provider Otolaryngology Otolaryngology/Facial Plastic Surgery; Visit Provider Otolaryngology Otolaryngology/Facial Plastic Surgery | DX: B37.0 Candidal stomatitis (principal) | CPT/HCPCS: 87070; 87077; 87205 ==

== ENCOUNTER → 2025-07-16 | Outpatient (CLI) | payer MEDICARE, SELFPAY ==
--- OUTSIDE RECORDS SUMMARY | 2025-07-16 16:59 | XMS RPT_ITS | CCD ---
Author Organization [facility] Care Team Providers Care Glove Stitcher Name Role Phone Layla Ribera MD Primary Care Provider Dr. Layla Ribera Primary Care Provider Dr. Layla Ribera Referring Provider MD Oneil Marks Attending Provider MD Oneil Marks Referring Provider MD Oneil aMrks Other Provider Layla Ribera MD Primary Care Provider Dr. Layla Ribera Primary Care Provider Dr. Layla Ribera Referring Provider MD Oneil Marks Attending Provider Dr. Dominic Manzano Attending Provider Layla Ribera MD Primary Care Provider [facility] [place] COMPRESSED GASES TESTER.Jessica MUNOZ Unavailable Ibrahima COMPRESSED GASES TESTER.Stan MUNOZ Unavailable Dominic Manzano Attending Unavailable Layla Ribera Primary Care Unavailable Venkat Cleveland Referring Unavailable Venkat Cleveland Attending Unavailable Layla Ribera Primary Care Unavailable Oneil Marks Referring Unavailable Oneil Marks Attending Unavailable Layla Ribera Primary Care Unavailable Oneil Marks Attending Unavailable Layla Ribera Referring Unavailable Layla Ribera Primary Care Unavailable LAYLA RIBERA Primary Care Unavailable LAYLA RIBERA Attending Unavailable LAYLA RIBERA Primary Care Unavailable LAYLA RIBERA Primary Care Unavailable BLANCA CHRISTOPHER Referring Unavailable HOLDEN RIOSOPHER Referring Unavailable LAYLA RIBERA Primary Care Unavailable Allergies Allergy Classification Reported Allergen(s) Allergy Type Date of Onset Reaction(s) Facility (5 sources) Penicillins; Translations: [PENICILLINS] Propensity to adverse reactions 6 [facility] Work Phone: (20 sources) Sulfonamides (Antibiotic); Translations: [SULFA (SULFONAMIDE ANTIBIOTICS)] Propensity to adverse reactions 6 [facility] Work Phone: (17 sources) Penicillins Propensity to adverse reactions 6 [facility] Work Phone: (3 sources) Meperidine Drug Allergy 3 [facility] (3 sources) Penicillins Allergy to substance 3 [facility] (3 sources) Sulfonamides (Antibiotic) Allergy to substance 3 [facility] (1 source) Meperidine Drug Allergy 4 [facility] (1 source) Penicillins Drug allergy (disorder) 4 [facility] (1 source) Sulfonamides (Antibiotic) Drug allergy (disorder) 4 [facility] (1 source) Penicillins Propensity to adverse reactions 6 [facility] Work Phone: Medications Current Medications Medication Drug Class(es) Dates Sig (Normalized) Sig (Original) acetaminophen 500 mg oral tablet (3 sources) Start: 07-29-2023 take 2 tablets by mouth every six hours Acetaminophen (Tylenol Extra Strength) 500 mg tablet Active 1000 MG PO EVERY 6 HOURS July 29, 2023 1:00am Start: 07-15-2023 End: 07-29-2023 take 1 tablet by mouth every eight hours Acetaminophen (Tylenol Arthritis Pain) 650 mg tablet extended release Discontinued 650 MG PO Q8H July 15, 2023 1:00am July 29, 2023 10:27am alendronic acid 70 mg oral tablet (3 sources) Bisphosphonate Start: 08-02-2024 take 1 tablet by mouth every week in the morning alendronate (FOSAMAX) 70 mg tablet Indications: Age-related osteoporosis without current pathological fracture Take 1 tablet by mouth one time a week. In am with glass of water, on a empty stomach, nothing by mouth or lying down for 30 minutes 12 tablet 3 08/02/2024 Active C,E,zinc,copper 98-[id number] (OCUVITE ADULT 50 PLUS) 250-5-1 mg cap (20 sources) Start: 11-03-2021 C,E,zinc,coppe r 60-[id number]-all (OCUVITE ADULT 50 PLUS) 250-5-1 mg cap Take 1 capsule by mouth once daily. 11/03/2021 Active Start: 11-03-2021 C,E,zinc,coppe r 12-[id number] (OCUVITE ADULT 50 PLUS) 250-5-1 mg cap Take 1 capsule by mouth once daily. 0 11/03/2021 Active Comment on above: Take 1 capsule by mo [facility] once daily. cholecalciferol 0.025 mg oral capsule (20 sources) Vitamin D Start: 11-04-19 take 1 capsule by mouth once daily Cholecalciferol, Vitamin D3, 25 mcg (1,000 unit) cap Take 1 capsule by mouth once daily. 11/03/2021 Active Comment on above: Take 1 capsule by mo ut once daily. ibuprofen 200 mg oral tablet (2 sources) Nonsteroidal Anti-inflammatory Drug Start: 07-15-20 23 take 200 mg by mouth every six hours Ibuprofen Active 200 MG PO EVERY 6 HOURS July 15, 2023 1:00am multivitamin tablet (20 sources) Start: 11-04-19 take 1 tablet by mouth once daily multivitamin tablet Take 1 tablet by mouth once daily. 11/03/2021 Active Start: 11-03-2021 [facility] multivitamin tablet Take 1 tablet by mouth once daily. 0 11/03/2021 Active Comment on above: Take 1 tablet by mandeep once daily. valACYclovir 1000 mg oral tablet (1 source) Herpesvirus Nucleoside Analog DNA Polymerase Inhibitor, Herpes Simplex Virus Nucleoside Analog DNA Polymerase Inhibitor, Herpes Zoster Virus Nucleoside Analog DNA Polymerase Inhibitor Start: End: take 1 tablet by mouth three times daily valACYclovir (VALTREX) 1 gram tablet Indications: Herpes zoster without complication Take 1 tablet by mouth three times a day for 7 days. 21 tablet 09/29/2024 10/06/2024 Active Completed/Discontinued Medications Medication Drug Class(es) Dates Sig (Normalized) Sig (Original) acetaminophen 325 mg / oxyCODONE hydrochloride 5 mg oral tablet (4 sources) Opioid Agonist Start: 07-27-2023 End: 07-29-2023 take 1 tablet by mouth every four hours Oxycodone-Acetamino phen (Percocet) 5-325 mg tablet Discontinued 1 TABLET PO Q4H 30 July 27, 2023 July 29, 2023 10:26am Start: 07-15-2023 End: 07-20-2023 take 1 tablet by mouth every four hours Oxycodone-Acetaminophen (Percocet) 5-325 mg tablet Discontinued 1 TABLET PO Q4H 14 July 15, 2023 July 20, 2023 1:05am cephalexin 500 mg oral capsule (1 source) Cephalosporin Antibacterial Start: 08-15-2023 End: 08-18-2023 take 500 mg by mouth every six hours Cephalexin Discontinued 500 MG PO EVERY 6 HOURS 12 August 15, 2023 1:00am August 18, 2023 1:05am FLUoxetine 10 mg oral capsule (9 sources) Serotonin Reuptake Inhibitor Start: 11-08-2023 End: 04-09-2025 take 1 capsule by mouth once daily FLUoxetine (PROZAC) 10 mg capsule Indications: REBA (generalized anxiety disorder) Take 1 capsule by mouth once daily. 30 capsule 1 11/08/2023 04/09/2025 Discontinued Comment on above: Take 1 capsule by mo uth once daily. Problems Active Problems Problem Classification Problem Date Documented Da te Episodic/Chronic Anxiety disorders (1 source) Generalized anxiety disorder; Translations: [Generalized anxiety disorder] 11-08-2023 Chronic Complication of device; implant or graft (1 source) Unspecified complication of internal orthopedic prosthetic device, implant and graft, initial encounter; Translations: [Unspecified complication of internal orthopedic prosthetic device, implant and graft, initial encounter] Onset: 09-03-2024 Episodic Diabetes mellitus without complication (1 source) Increased glucose level; Translations: [Other abnormal glucose] Episodic Disorders of lipid metabolism (1 source) Hyperlipidemia; Translations: [Hyperlipidemia, unspecified] Chronic E Codes: Fall (3 sources) Fall; Translations: [Unspecified fall, initial encounter] 07-12-2023 Episodic Esophageal disorders (20 sources) Gastro-esophageal reflux disease with esophagitis; Translations: [Reflux esophagitis] Onset: 08-24-2006 10-01-2006 Chronic Osteoarthritis (20 sources) Osteoarthritis; Translations: [Unspecified osteoarthritis, unspecified site] 07-20-2021 Chronic Osteoporosis (20 sources) Osteoporosis; Translations: [Age-related osteoporosis without current pathological fracture] Chronic Other screening for suspected conditions (not mental disorders or infectious disease) (20 sources) Patient encounter status; Translations: [Encounter for screening for malignant neoplasm of colon] Onset: 12-27-2011 Episodic Pathological fracture (2 sources) History of osteoporotic fracture; Translations: [Personal history of (healed) osteoporosis fracture] Onset: 04-09-2025 04-09-2025 Episodic Screening and history of mental health and substance abuse codes (2 sources) Encounter for screening for depression; Translations: [Encounter for screening examination for other mental health and behavioral disorders] Onset: 04-09-2025 Episodic Thyroid disorders (4 sources) Thyroid nodule; Translations: [Nontoxic single thyroid nodule] Chronic Unclassified (1 source) Patient encounter status 04-09-2025 Viral infection (1 source) Herpes zoster without complication; Translations: [Zoster without complications] 09-29-2024 Episodic Past or Other Problems Problem Classification Problem Date Documented Da te Episodic/Chronic Fracture of upper limb (7 sources) Fracture of distal end of radius; Translations: [Unspecified fracture of the lower end of left radius, initial encounter for closed fracture] Onset: 12-01-2023 07-12-2023 Episodic Nonspecific chest pain (20 sources) Chest pain; Translations: [Chest pain, unspecified] Onset: 08-24-2006 10-01-2006 Episodic Other bone disease and musculoskeletal deformities (20 sources) Disorder of skeletal system; Translations: [Disorder of bone, unspecified] Onset: 08-24-2006 10-01-2006 Episodic Results Test Name Value Interpretation Reference Range Bianca Stevens 04-09-2025 CNOV Office Visit (FAMPWS ) DAX DUARTE ([id number]) 1955 F Date Time Provider Department 04/09/25 2:20 PM LAYLA RIBERA During your visit today, we recorded the following information about you: Pulse Respiration Blood pressure Weight 100/minute 18/minute 148/88 48.6 kg Height 1.575 m Layla Ribera MD 04/09/2025 2:53 PM Signed Dax Duarte is a 69 year old female here for a Medicare wellness visit. Dax Duarte is a 70-year-old female presenting for a Medicare wellness visit. Dax reports a recent mild case of shingles and inquires about the appropriate timing for the shingles vaccine. She also requests an order for a mammogram scheduled for July. Dax is currently taking Fosamax and monitors her blood pressure at home, with readings ranging from 135-139 mmHg systolic and 81-85 mmHg diastolic. She inquires about the threshold for initiating antihypertensive medication. Dax exercises 3-4 times per week to regain muscle tone in her left arm following a wrist fracture and subsequent surgeries. She also engages in walking and recumbent biking on off days. She was previously prescribed Prozac for stress related to her wrist injury but decided not to take it, believing she could manage the stress independently. Recording using [employer]pi[employer] software for draft documentation of the visit was discussed with the patient/authorized territory sales representative; all questions welcomed and answered. Patient/authorized territory sales representative agreed to proceed Medicare Health Risk Assessment General Health Very good Exercise: Minutes/Day 30 min Exercise: Days/Week 4 days Alcohol: Daily Use Monthly or less Alcohol: Drinks/Day 1 or 2 Alcohol: 6 or more drinks Never Feel off balance No Concerns: Teeth/Dentures No Concerns: Sexual function No Troubled by feelings None of the above Frequency: Eating healthy diet Nearly every day ADLs requiring help None of the above Safety precautions in home/vehicle Yes Smoke, vape, chews tobacco No Difficulty hearing No Difficulty seeing No Current Providers Specialists: I have reviewed specialist-related care of the patient in the medical record. Current care team: Patient Care Team: Layla Ribera MD as PCP - General (Family Medicine) Stan Damon APRN.ALEXANDER as Insurance Claims Examiner (Family Medicine) Outside specialists seen: Derm Dr. Abdias Manzo, Dentist, and Dr. Woodall-Eye Medical/Family history review Reviewed and updated problem list, medical/surgical/famil y/social history, medications, and allergies. Opioid use review Opioid Medications (last 90 days) No data to display Anxiety/Depression screening PHQ-2 Score: 0 (Lower risk for depression) REBA-7 Score: 3 (Minimal Anxiety) Recommendation: no further intervention at this time Cognitive screening Mini Cog Score: 4 Cognitive screening reviewed and No further action needed (score 3-5). Functional Observation Was the patient's Timed Up AND Go test unsteady or >= 12 seconds? No Advance Care Planning Surrogate decision maker and/or advance care plan documented Measurements BP 148/88 Pulse 100 Resp 18 Ht 157.5 cm (5' 2) Wt 48.6 kg (107 lb 2.3 oz) BMI 19.60 kg/m? Vision Screening: Follows with optometry/ophthalmolog y Assessment/Plan 1. Encounter for Medicare annual wellness exam (Z00.00) Completed Medicare annual wellness visit; patient is exercising regularly and maintaining a healthy weight. - No additional lab work ordered at this time. - Advised patient to continue regular physical activity and healthy diet. 2. Encounter for screening mammogram for malignant neoplasm of breast (Z12.31) Last mammogram was on July 30; patient inquired about next screening. - Order for next screening mammogram placed for after July 30. 3. Personal history of (healed) osteoporosis fracture (Z87.310) Patient has a history of a healed osteoporotic wrist fracture and is currently taking Fosamax. - Continue Fosamax as prescribed. 4. Screening for depression (Z13.31) 5. Encounter for screening examination for other mental health and behavioral disorders (Z13.39) Follow up in 1 year Layla Ribera MD Allergies As of Date: 04/09/2025 Noted Allergy Reaction PENICILLINS 08/03/2005 SULFA (SULFONAMIDE ANTIBIOTICS) 08/03/2005 Date Reviewed: 04/09/2025 Reviewed by: Aminah Wilhelm MA - Fully Assessed Reason for Visit: Medicare Wellness Exam [4060] Primary Visit Diagnosis:Encounter for Medicare annual wellness exam [Z00.00] Other Visit Diagnoses:Screening for depression [Z13.31] Encounter for screening examination for other mental health and behavioral disorders [Z13.39] Encounter for screening mammogram for malignant neoplasm of breast [Z12.31] Personal history of (healed) osteoporosis fracture [Z87.310] Order(s):DEPRESSION SCREENING [[id number]] Ord (more content not included)... Normal [facility] CNOVon 09-29-2024 CNOV Office Visit (UCWSTR ) DAX DUARTE ([id number]) 1955 F Date Time Provider Department 09/29/24 2:45 PM EDUARDO PARIS [facility] During your visit today, we recorded the following information about you: Temperature Pulse Respiration Blood pressure 98.3 degrees 98/minute 18/minute 144/84 Weight 50 kg Eduardo Paris MD 09/29/2024 3:04 PM Signed [facility] Subjective Dax Duarte is a 69 year old female. Patient presents with: Rash: Rash on back x 1 day Patient presents with a rash on the right side she noticed yesterday. It is not pruritic or painful. The rash has spread to her back on the right side. She denies any known exposure in the area. She has tried no treatment. Denies any recent illness or fever. She had chickenpox when younger. She has not had the shingles vaccine. Rash Review of Systems Skin: Positive for rash. Objective BP 144/84 Pulse 98 Temp 36.8 ?C (98.3 ?F) (Tympanic) Resp 18 Wt 50 kg (110 lb 3.7 oz) SpO2 99% BMI 20.16 kg/m? Physical Exam Constitutional: General: She is not in acute distress. Appearance: She is not ill-appearing. Skin: Comments: Clusters of erythematous papules and vesicles in dermatomal distribution on the right thoracolumbar junction and upper right lateral abdomen. Neurological: Mental Status: She is alert. ASSESSMENT/PLAN: 1. Herpes zoster without complication - ICD9: 053.9, ICD10: B02.9 - VALACYCLOVIR 1 GRAM TABLET Shingles discussed. Shingles is a viral rash from prior chicken pox infection. Early antiviral medicine can reduce the length and severity of the shingles outbreak. The rash is contagious until all blisters or sores are dry. Until this avoid contact with women, unvaccinated (usually children under 1), or people with impaired immune systems who would be susceptible to lindsay the chicken pox. The site of the rash may have scaring (color change) after the infection is resolved. Pain, burning, or tingling from the rash may continue for days to several months after the infection-typically a few weeks. There is a vaccine that can reduce the chance of future shingles outbreaks, but for a few years after a shingles episode it probably does not provide benefit. Follow-up with primary care if opqy-[id number] analgesia is not effective for pain relief. Eduardo Paris MD Allergies As of Date: 09/29/2024 Noted Allergy Reaction PENICILLINS 08/03/2005 SULFA (SULFONAMIDE ANTIBIOTICS) 08/03/2005 Date Reviewed: 09/29/2024 Reviewed by: Nat Cummins LPN - Fully Assessed Reason for Visit: Rash [1087] Cmt: Rash on back x 1 day Primary Visit Diagnosis:Herpes zoster without complication [B02.9] Order(s):valACYclovir (VALTREX) 1 gram tabletTake 1 tablet by mouth three times a day for 7 days.Disp: 21 tabletRfl: 0 Prescriptions as of 09/29/2024 - valACYclovir (VALTREX) 1 gram tablet Take 1 tablet by mouth three times a day for 7 days. - alendronate (FOSAMAX) 70 mg tablet Take 1 tablet by mouth one time a week. In am with glass of water, on a empty stomach, nothing by mouth or lying down for 30 minutes - FLUoxetine (PROZAC) 10 mg capsule Take 1 capsule by mouth once daily. - Cholecalciferol, Vitamin D3, 25 mcg (1,000 unit) cap Take 1 capsule by mouth once daily. - C,E,zinc,copper [id number] (OCUVITE ADULT 50 PLUS) 250-5-1 mg cap Take 1 capsule by mouth once daily. - multivitamin tablet Take 1 tablet by mouth once daily. Meds Comments as of 11/08/2023: Multivitamin. [facility]. Uses Tylenol and Advil Problem List As Of Date 09/29/2024 Noted Resolved CHEST PAIN UNSPECIFIED [R07.9] 08/24/2006 REFLUX ESOPHAGITIS [K21.00] 08/24/2006 BONE AND CARTILAGE DIS NOS [M89.9, M94.9] 08/24/2006 Osteoporosis [M81.0] Osteoarthritis [M19.90] Screening for malignant neoplasm of cervix [Z12*12/27/2011 Prescriptions ordered this encounter Disp Refills Start End VALACYCLOVIR 1 GRAM TABLET 21 t* 0 09/29/2024 10/06/2024 Route: ORAL Sig: Take 1 tablet by mouth three times a day for 7 days. Level of Service: OFFICE/OUTPATIENT ESTABLISHED MOD MDM 30 MIN [34712] Encounter Status:Closed by EDUARDO PARIS on 09/29/24 [facility] OT D/C Summaryon 09-03-2024 OT D/C Summary [facility] Occupational [facility] [address] [place] [address] [address] [place] [address] / REHABILITATION SERVICES DISCHARGE SUMMARY MR#: [id number] Acct: [id number] Name: DAX DUARTE Rep #: [id number] : 1955 69 From: Laury Fox OTR/L, T Referring Dr.: Dr. Venkat Cleveland MD Status: REG RCR Eval Date: Discharge Date: Discharge Summary D/C Summary: It has been my pleasure to treat DAX DUARTE under orders from Dr. 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 Please see the following information for a summary of their discharge status. Overall Improvement % Improvement: 80 Objective Objective/Function: left wrist ext. 35* passive ROM 45* UD 5* 35# left vice investigator strength pt demo full composite fist pt demo with supination at 70* pt will cont.with HEP for stretching and started silver sneakers to cont. working with wts in the gym. pt reports she is IND with ADls and agrees with D.C. Goals Patient Goals: Regain Mobility, Regain Strength, Use Hand/Wrist/Arm Normally Again, Decrease Tingling/Numbness, Increase ROM, Be More Independent in ADLS and Resume Former Household Re sponsibilities (Cooking,Cleaning,Yard , etc.) Goal:Daily scar massage when approriate: Yes Goal Progress: Goal Met Goal:ROM equal to unaffected hand: Yes Goal Progress: Progressing Goal:Squilgeer/Pinch strength at least 75% of unaffected hand: Yes Goal Progress: Progressing Goal:No pain with affected hand use: Yes Goal:Full use of affected hand in daily activities including work: Yes Goal:Decrease scar hypersensitivity: Yes Plan Plan: pt has two visits left and would like to transition to some of the gym eq. will work with free wts for next visit D/C Information Discharge Comments: pt was seen for 13 OT sessions d/c sentence: If there are questions or concerns regarding this patient's occupational therapy, please fell free to call me at [phone]. Thank you for the referral of this patient. Sincerely, Laury Fox, OTR/L, T 09/03/24 1341 CC: Dr. Venkat Cleveland MD; Dr. Layla Ribera MD MK Signed Normal [facility] 08-02-2024 [facility] Telephone (FAMPWS) DAX DUARTE ([id number]) 1955 F Date Time Provider Department 08/02/24 [facility] During your visit today, we recorded the following information about you: Layla Ribera MD 08/02/2024 3:14 PM Signed Please notify patient that her bone density test does show osteoporosis, soI would recommend starting on Fosamax once weekly as ordered, in order to reduce her risk of further fractures MD Romana Corral Barbara, LPN 08/02/2024 3:37 PM Signed Patient notified of results, verbalizes understanding of instructions. Vika Avendano LPN Allergies As of Date: 08/02/2024 Noted Allergy Reaction PENICILLINS 08/03/2005 SULFA (SULFONAMIDE ANTIBIOTICS) 08/03/2005 Date Reviewed: 11/08/2023 Reviewed by: Fabiola Lyle MA - Fully Assessed Primary Visit Diagnosis:Age-related osteoporosis without current pathological fracture [M81.0] Order(s):alendronate (FOSAMAX) 70 mg tabletTake 1 tablet by mouth one time a week. In am with glass of water, on a empty stomach, nothing by mouth or lying down for 30 minutesDisp: 12 tabletRfl: 3 Prescriptions as of 08/02/2024 - alendronate (FOSAMAX) 70 mg tablet Take 1 tablet by mouth one time a week. In am with glass of water, on a empty stomach, nothing by mouth or lying down for 30 minutes - FLUoxetine (PROZAC) 10 mg capsule Take 1 capsule by mouth once daily. - Cholecalciferol, Vitamin D3, 25 mcg (1,000 unit) cap Take 1 capsule by mouth once daily. - C,E,zinc,copper 56-[id number]-dsv (OCUVITE ADULT 50 PLUS) 250-5-1 mg cap Take 1 capsule by mouth once daily. - multivitamin tablet Take 1 tablet by mouth once daily. Meds Comments as of 11/08/2023: Multivitamin. [facility]. Uses Tylenol and Advil Problem List As Of Date 08/02/2024 Noted Resolved CHEST PAIN UNSPECIFIED [R07.9] 08/24/2006 REFLUX ESOPHAGITIS [K21.00] 08/24/2006 BONE AND CARTILAGE DIS NOS [M89.9, M94.9] 08/24/2006 Osteoporosis [M81.0] Osteoarthritis [M19.90] Screening for malignant neoplasm of cervix [Z12*12/27/2011 Prescriptions ordered this encounter Disp Refills Start End ALENDRONATE 70 MG TABLET 12 t* 3 08/02/2024 Route: ORAL Sig: Take 1 tablet by mouth one time a week. In am with glass of water, on a empty stomach, nothing by mouth or lying down for 30 minutes Encounter Status:Closed by VIKA AVENDANO on 08/02/24 Normal [facility] BD DXA - AXIAL SKELETONon BD DXA - AXIAL SKELETON * * *Final Report* * * DATE OF EXAM: Jul 30 2024 8:27AM WRB 0804 - BD DXA - AXIAL SKELETON / PROCEDURE REASON: multiple diagnoses * * * * Physician Interpretation * * * * EXAMINATION: DXA BONE DENSITOMETRY BD DXA - AXIAL SKELETON, BD DXA TRABECLR BONE SCORE (TBS) PATIENT DEMOGRAPHICS: Age: 69 years, Gender: Female SCANNER INFORMATION: DXA Model: Wagon - [place] C 02682 Date Scanned: 07/30/2024 8:27 AM CLINICAL HISTORY: DIAGNOSTIC Screening for osteoporosis Closed fracture of left wrist with routine healing, subsequent encounter . RISK FACTORS FOR OSTEOPOROSIS AND ASSOCIATED FRACTURES REPORTED BY THIS PATIENT: Please refer to Bone Health Questionnaire in the EMR CURRENT THERAPY: Please refer to Bone Health Questionnaire in the EMR TECHNICAL LIMITATIONS: None RESULTS: Lumbar spine (L1, L2, L3, L4): 0.720 g/cm2, T-score -3.0, Z-score -0.8 Lumbar spine: 2011: 0.788 g/cm2 Statistically significant decrease Right Femoral Neck: 0.406 g/cm2, T-score -4.0, Z-score -2.1 Right Total Hip: 0.548 g/cm2, T-score -3.2, Z-score -1.7 Left Femoral Neck: 0.402 g/cm2, T-score -4.0, Z-score -2.2 Left Femoral Neck: 2012: 0.537 g/cm2 Statistically significant decrease Left Total Hip: 0.560 g/cm2, T-score -3.1, Z-score -1.6 Left Total Hip: 2012: 0.636 g/cm2 Statistically significant decrease CHANGE IS STATISTICALLY SIGNIFICANT IN THE SPINE OR HIP IF GREATER THAN OR EQUAL TO 0.04 g/cm2 VERTEBRAL FRACTURE ASSESSMENT Not performed. TRABECULAR BONE ASSESSMENT TBS score: 1.332 Bone micro-architecture: Normal (> 1.310) IMPRESSION: THE LOWEST T-SCORE IS -4.0 IN THE RIGHT AND LEFT HIPS 1) DIAGNOSIS (based on BMD alone): OSTEOPOROSIS Caution: Medical conditions other than osteoporosis may cause low bone density, such as osteomalacia or renal osteodystrophy. Clinical correlation is necessary. 2) FRACTURE RISK (Based on TBS adjusted FRAX): 10-year absolute fracture risk: - major osteoporotic fracture = 32 % - hip fracture = 16 % - A diagnosis of Osteoporosis, a 10 year probability of hip fracture greater than or equal to 3% or a 10 year probability of any major osteoporosis-related fracture greater than or equal to 20% should be considered for treatment. - DXA scanner generated FRAX calculations may slightly differ from online FRAX calculations due to differences in software versions. - All recommendations and calculations are to be considered as guidelines and should not replace sound clinical judgement - Caution: Fracture risk may be increased independent of BMD in patients with corticosteroid use, age greater than 65 years, or a history of prior fragility fracture. RECOMMENDATIONS: Follow-up in 2 years or as clinically indicated. Patients that are taking corticosteroids, are transplant recipients or have hyperparathyroidism should have annual follow-up. Follow-up scans should always be done on the same machine for accurate comparison. FOR MORE INFORMATION ABOUT DIAGNOSIS AND TREATMENT: [facility] Osteoporosis and Metabolic Bone Disease:? www.ccf.org/arthritis/ osteo National Osteoporosis Foundation:? www.nof.org International Society of Clinical Densitometry www.iscd.org [employer]: CHRIS Transcribe Date/Time: Jul 31 2024 8:54A Dictated by : ALAN SUAREZ MD This examination was interpreted and the report reviewed and electronically signed by: ALAN SUAREZ MD on Jul 31 2024 9:10AM EST [id number] -4.0 Normal [facility] BD DXA TRABECLR BONE SCORE ( TBS)on 07-30-2024 BD DXA TRABECLR BONE SCORE (TBS) * * *Final Report* * * DATE OF EXAM: Jul 30 2024 8:27AM WRB [id number] - BD DXA TRABECLR BONE SCORE (TBS) / PROCEDURE REASON: multiple diagnoses * * * * Physician Interpretation * * * * EXAMINATION: DXA BONE DENSITOMETRY BD DXA - AXIAL SKELETON, BD DXA TRABECLR BONE SCORE (TBS) PATIENT DEMOGRAPHICS: Age: 69 years, Gender: Female SCANNER INFORMATION: DXA Model: Anival Dee - [employer] C [id number] Date Scanned: 07/30/2024 8:27 AM CLINICAL HISTORY: DIAGNOSTIC Screening for osteoporosis Closed fracture of left wrist with routine healing, subsequent encounter . RISK FACTORS FOR OSTEOPOROSIS AND ASSOCIATED FRACTURES REPORTED BY THIS PATIENT: Please refer to Bone Health Questionnaire in the EMR CURRENT THERAPY: Please refer to Bone Health Questionnaire in the EMR TECHNICAL LIMITATIONS: None RESULTS: Lumbar spine (L1, L2, L3, L4): 0.720 g/cm2, T-score -3.0, Z-score -0.8 Lumbar spine: 2011: 0.788 g/cm2 Statistically significant decrease Right Femoral Neck: 0.406 g/cm2, T-score -4.0, Z-score -2.1 Right Total Hip: 0.548 g/cm2, T-score -3.2, Z-score -1.7 Left Femoral Neck: 0.402 g/cm2, T-score -4.0, Z-score -2.2 Left Femoral Neck: 2011: 0.537 g/cm2 Statistically significant decrease Left Total Hip: 0.560 g/cm2, T-score -3.1, Z-score -1.6 Left Total Hip: 2012: 0.636 g/cm2 Statistically significant decrease CHANGE IS STATISTICALLY SIGNIFICANT IN THE SPINE OR HIP IF GREATER THAN OR EQUAL TO 0.04 g/cm2 VERTEBRAL FRACTURE ASSESSMENT Not performed. TRABECULAR BONE ASSESSMENT TBS score: 1.332 Bone micro-architecture: Normal (> 1.310) IMPRESSION: THE LOWEST T-SCORE IS -4.0 IN THE RIGHT AND LEFT HIPS 1) DIAGNOSIS (based on BMD alone): OSTEOPOROSIS Caution: Medical conditions other than osteoporosis may cause low bone density, such as osteomalacia or renal osteodystrophy. Clinical correlation is necessary. 2) FRACTURE RISK (Based on TBS adjusted FRAX): 10-year absolute fracture risk: - major osteoporotic fracture = 32 % - hip fracture = 16 % - A diagnosis of Osteoporosis, a 10 year probability of hip fracture greater than or equal to 3% or a 10 year probability of any major osteoporosis-related fracture greater than or equal to 20% should be considered for treatment. - DXA scanner generated FRAX calculations may slightly differ from online FRAX calculations due to differences in software versions. - All recommendations and calculations are to be considered as guidelines and should not replace sound clinical judgement - Caution: Fracture risk may be increased independent of BMD in patients with corticosteroid use, age greater than 65 years, or a history of prior fragility fracture. RECOMMENDATIONS: Follow-up in 2 years or as clinically indicated. Patients that are taking corticosteroids, are transplant recipients or have hyperparathyroidism should have annual follow-up. Follow-up scans should always be done on the same machine for accurate comparison. FOR MORE INFORMATION ABOUT DIAGNOSIS AND TREATMENT: [facility] Osteoporosis and Metabolic Bone Disease:? www.ccf.org/arthritis/ osteo National Osteoporosis Foundation:? www.nof.org International Society of Clinical Densitometry www.iscd.org [employer]: CHRIS Transcribe Date/Time: Jul 31 2024 8:54A Dictated by : ALAN SUAREZ MD This examination was interpreted and the report reviewed and electronically signed by: ALAN SUAREZ MD on Jul 31 2024 9:10AM EST [id number] -4.0 Normal [facility] SCREENINGon 07-30-2024 [facility] SCREENING * * *Final Report* * * DATE OF EXAM: Jul 30 2024 8:14AM [facility] [id number] [facility] SCREENING / PROCEDURE REASON: Visit for screening mammogram * * * * Physician Interpretation * * * * RESULT: [place] [address] #[id number] - [facility] SCREENING HISTORY: Patient is 69 years old and is seen for screening and is asymptomatic in both breasts. Patient states no personal history of breast cancer. Patient states no personal history of other cancers. COMPARISON STUDIES: The present examination has been compared to prior imaging studies dated 10/05/2018 (mammogram), 05/26/2020 (mammogram), 05/28/2021 (mammogram), 06/01/2022 (mammogram) and 06/06/2023 (mammogram). MAMMOGRAM TECHNIQUE: The study was acquired using full field digital technology and interpreted from soft copy. Computer-aided detection was utilized by the radiologist in the interpretation of this examination. MAMMOGRAM FINDINGS: The breasts are heterogeneously dense, which may obscure small masses. No suspicious masses, calcifications or other abnormalities are seen in either breast. There are no significant interval changes. IMPRESSION: There is no mammographic evidence of malignancy in either breast. Routine screening mammogram is recommended. Annual mammogram will be due in 1 year. BI-RADS Category 1: Negative RISK: Based on the Tyrer-Cuzick (TC) risk assessment model, this patient has a 3.7% lifetime risk of developing breast cancer, meaning they are at average risk for developing breast cancer. However, this is only an estimate based on available history provided on the patient's questionnaire. We encourage all patients to talk with their providers about these results, further recommendations for managing breast health, and appropriate supplemental screening options if the patient has dense breast tissue. Interpreting Radiologist: Washington Saeed M.D. Electronically signed on: 07/31/2024 [employer]: LESTER Transcribe Date/Time: Jul 30 2024 8:06A Dictated by: WASHINGTON SAEED MD This examination was interpreted and the report reviewed and electronically signed by: WASHINGTON SAEED MD on Jul 31 2024 6:07PM EST [id number] Normal [facility] OT General Evaluation 11- OT General Evaluation [facility] Occup[facility] [address] [place] [address] [address] [place] [address] / REHABILITATION SERVICES INITIAL EVALUATION MR#: [id number] Acct: [id number] Name: DAX DUARTE Rep #: [id number] : 1955 69 From: Laury ISSA CHT Referring Dr.: Dr. Venkat Cleveland MD Status: REG RCR Insurance: [employer] Eval Date: SELF PAY INSURANCE Patient's Visit Information Visit Information Visit Information: DAX DUARTE is a 69 year old F, referred to Occupational Therapy by Dr. 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 Date of Evaluation: 06/13/24 Occupational Therapist: BIANCA Marin/Nette, CHT Subjective Subjective: This 69 year old female was seen for OT eval with dx of unspecified complication of internal orthopedic prosthetic device implant and graft. Pt had initial fall 2023 suffering l eft wrist fx and ORIF performed Jul 2023. pt developed complications of scar adhesions and symptoms of tingling of left thumb, IF and MF. Despite pts compliance with her HEP she made minimal gains in getting return of her left hand/wrist function. Pt states she was walking and felt and heard loud pop. She decieied to see Dr. Cleveland and after further discussion realized she needed to undergo sx. pt underwent sx on 2023: Metal removal left wrist with insertion bone bank bone graft 2 neurolysis median nerve in forearm - insert neurogen tubule left forearm flexor tenosynovectomy left forearm scar revision with advancement flap left forearm 1x 10cm left open CTR tenolysis left FCR tendon on 05/28/24. Pt states she is currently limited with use of her left hand with ADLs and IADls at this time. Pt states she is hopeful sx will decrease symptoms of tingling and pain. ADLs Comments: pt has help from spouse for all daily occupations at this time Pain left wrist: Current Pain Intensity: 3 Pain Intensity Range: 3 and 5 ROM Forearm: right supination 75*left supination 40* Wrist: right 62*/55* left 25*/35* IP: flexion right 45*left 10* ( pt needs cues to not compensate) ROM Comments: left RD [address] 15 UD 30 Pt demo with IF limited composite flexion by 3cm from distal palmar crease- pt demo with MF limited composite flexion by 2cm from distal palmar crease pt demo with RF and LF full composite flexion Strength Squilgeer: right 45# left 18# Lateral Pinch: right 14# left 8# Tripod Pinch: right 12# left 6# Sensation Thumb: right 2.83 left 2.83 interpretation normal sensation Index: right 2.83 left 2.83 interpretation normal sensation Middle: right 2.83 left 2.83 interpretation normal sensation Ring: right 2.83 left 2.83 interpretation normal sensation Little: right 2.83 left 2.83 interpretation normal sensation Quick DASH-Disab of Arm,Shoulder Hand Quick DASH Score: 59.0900 Hand/Wrist Evaluation Total Score of Pain Functional Sections: 60 Goals Goal:Daily scar massage when approriate: Yes Goal:ROM equal to unaffected hand: Yes Goal:Squilgeer/Pinch strength at least 75% of unaffected hand: Yes Goal:No pain with affected hand use: Yes Goal:Full use of affected hand in daily activities including work: Yes Goal:Decrease scar hypersensitivity: Yes Rehabilitation General Assessment: pt arrives 2 weeks and 2 days s/p from metal removal left wrsit insertion bone bank bone graft, Neurolysis median nerve in forearm , insert neurogen tubule left forearm, flexor tenosynovectomy left forearm - scar revision with advancement flap left forearm 1x10 cm - left open CTR - tenolysis Left FCR tendon. Due to recent sx pt is limited with use of left UE with all ADLS and IADLs. pt would benefit from skilled OT services 2-3x week for 6-8 weeks to return pt to IND level with ADLs and IADLs. Today therapist ed. pt on cont. on ex every hour: tendon glides and active ROM of thumb, digits and wrist. Therapist advised to perform exercise slowly as well as holding stretch for longer periods of time (8-10 sec) . Therapist did give pt elastomer and instructed pt to use at night when her brace was on. pt and spouse demo understanding. Therapist ed. pt and spouse on scar mtg allowing skin mobilization vs rubbing surface of skin. Pt and pts spouse demo understand and agree to POC. Rehabilitation Potential: Good Anticipated Interventions Anticipated Interventions: A/AAROM/PROM, Strengthening, Scar Care, Triggerpoint Release, Desensitization, Modalities, Orthoses, Joint Protection/Energy Conservation, Ergonomic Education, Fine Motor Coord/Best, Education re assistive Equipment, Education re Diagnosis, Caregiver Training and Home Program Visit Plan General Plan: initiate ROM to gain composite fist Modalities US improve pts wrist and forearm ROM scar mtg (more content not included)... Normal [facility] OT D/C Summaryon 11-29-2023 OT D/C Summary [facility] [facility] [place] [address] / REHABILITATION SERVICES DISCHARGE SUMMARY MR#: [id number] Acct: [id number] Name: DAX DUARTE Rep #: [id number] : 1955 68 From: Laury Fox OTR/Nette, CHT Referring Dr.: Dr. Oneil Marks MD Status: R EG RCR Eval Date: Discharge Date: Discharge Summary D/C Summary: It has been my pleasure to treat DAX DUARTE under orders from Dr. Oneil Marks MD, for the diagnosis of left distal radius fx for a total of 4 visit(s). Please see the following information for a summary of their discharge status. Overall Improvement % Improvement: 60 Objective Objective/Function: left forearm pronation 50* right 80* left forearm supination 45* right 80* Left wrist ROM 20/20 right 65/70 pt demo the ability to from a straight fist- composite fist limited by DIP flex. left vice investigator strength 25# right is 40# left lateral pinch 10# right 16# left tripod pinch 10# right 12# pts states she has been LEXUS with her ADls and IADLs at this time as her motion limits full forearm sup/pron as well as wrist ext limits her daily tasks. pt will cont with her HEP. Advised pt if she felt she did not make gains in next 3 months with her ROM and strength she could return and could adj. her HEP. Pt demo understanding and agree to d/c at this time due to insurance limits. Goals Patient Goals: Regain Mobility, Regain Strength, Improve Fine Motor Skills, Use Hand/Wrist/Arm Normally Again, Increase ROM, Be More Independent in ADLS and Resume Former Household Responsibilities (Cooking,Cleaning,Yard , etc.) Goal:: Pt will demo the ability to form a composite fist to hold and receive 10 coins without dropping coins/ and coin manipulation/money mtg. tasks and ind. With manipulating fasteners for dressing by D/C. Goal met with zippers/buttons/ tie shoes/ 8/10 coins (progress) Goal:: Pt will demo understanding of joint protection and ergonomics when performing BADLs and IADLs by d/c (goal met) Pt will demo understanding of adaptive Equipment use to decrease stress on joints to allow pt to perform BADSL and IADLS at LEXUS level. (goal met) Goal:100% adherence to protocol: Yes Goal:Daily scar massage when approriate: Yes Goal Progress: Progressing Goal:ROM equal to unaffected hand: Yes Goal Progress: Progressing Goal:Squilgeer/Pinch strength at least 75% of unaffected hand: Yes Goal Progress: Progressing Goal:No pain with affected hand use: Yes Goal:PIP Circumferences equal to unaffected hand: Yes Goal:Full use of affected hand in daily activities including work: Yes Goal Progress: Progressing Goal:Decrease scar hypersensitivity: Yes Plan Plan: D/C with HEP D/C Information Discharge Comments: pt has been seen in OT for left distal radius fx with ORIF of distal radius. pt has had complications of scar adhesions limiting pts ROM- following ex she can gain about 10*. Pt also demo with a left shoulder irritation (pain) limiting pts full functional ROM of left shoulder. ( therapist has given shoulder AAROM and PROM HEP ) pt demo understanding of PROM forearm supination/pronation and wrist flex/ext. therapist ed. pt on cont. with stretching and return to use of left UE as able. pt is strengthening with t-band and putty as tolerated pt demo understanding and agrees to D/c. with HEP d/c sentence: If there are questions or concerns regarding this patient's occupational therapy, please fell free to call me at [phone]. Thank you for the referral of this patient. Sincerely, BIANCA Marin/Nette, CHT 11/29/23 1601 CC: Dr. Layla Ribera MD; Dr. Oneil Marks MD MK Signed Normal [facility] Re-Evalution OTon 11-01-2023 Re-Evalution OT [facility] [address] [place] [address] [address] [place] [address] / REEVALUATION / MEDICARE RECERTIFICATION OCCUPATIONAL THERAPY MR#: [id number] Acct: [id number] Name: DAX DUARTE Rep #: [id number] : 1955 68 From: Laury ISSA CHT Referring Dr.: Dr. Oneil Marks MD Status: R EG RCR Insurance: [employer] Eval Date: SELF PAY INSURANCE Re-Evaluation Intro: Dr. Oneil Marks MD, It has been my pleasure to treat DAX DUARTE over the last 13 visits for left distal radius fx. Please see the progress note below for an update on the occupational therapy plan of care! Subjective Subjective: pt arrives to session states she continues to have difficulty with forearm sup/pron limiting pts IND. limited wrist ex and difficulty putting wt. on left UE Objective Objective/Function: left forearm pronation 45* right 80* left forearm supination 60* right 80* Left wrist ROM 30/40 right 65/70 left vice investigator strength 20# right is 40# left lateral pinch 8# right 16# left tripod pinch 7# right 12# pts left hand swelling and scar adhesions initially limited pts ROM gains- pt has now been able to consistently form a composite fist and initiate strengthening. pt continues to make gains with her strength- pt continues to demo with compensatory tania. due to her limited supination/pronation wrist extension has improved but continues to limit pt with use of left UE with bathing/ dressing tasks- pt would benefit from further skilled OT services 2x week for 8 weeks to increase pts ROM and strength. Plan Plan Frequency: 2x /Week Duration: 6 Weeks Visits in this POC: 13 Plan: cont with AROM light vice investigator for putty FES to increase muscle contraction Scar mtg use of elastomer PROM Goals Goals Patient Goals: Regain Mobility, Regain Strength, Improve Fine Motor Skills, Use Hand/Wrist/Arm Normally Again, Increase ROM, Be More Independent in ADLS and Resume Former Household Responsibilities (Cooking,Cleaning,Yard , etc.) Goal:: Pt will demo the ability to form a composite fist to hold and receive 10 coins without dropping coins/ and coin manipulation/money mtg. tasks and ind. With manipulating fasteners for dressing by D/C. Goal:: Pt will demo understanding of joint protection and ergonomics when performing BADLs and IADLs by d/c Pt will demo understanding of adaptive Equipment use to decrease stress on joints to allow pt to perform BADSL and IADLS at LEXUS level. Goal:100% adherence to protocol: Yes Goal:Daily scar massage when approriate: Yes Goal Progress: Progressing Goal:ROM equal to unaffected hand: Yes Goal Progress: Progressing Goal:Squilgeer/Pinch strength at least 75% of unaffected hand: Yes Goal Progress: progressing at 50% Goal:No pain with affected hand use: Yes Goal:PIP Circumferences equal to unaffected hand: Yes Goal:Full use of affected hand in daily activities including work: Yes Goal Progress: Progressing Goal:Decrease scar hypersensitivity: Yes (Goal Met) Anticipated Interventions Anticipated Interventions Anticipated Interventions: A/AAROM/PROM, Strengthening, Scar Care, Triggerpoint Release, Desensitization, Sensory Retraining, Modalities, Orthoses, Joint Protection/Energy Conservation, Ergonomic Education, Fine Motor Coord/Best, Sensory Stimulation, Education re assistive Equipment, Education re Diagnosis, Caregiver Training and Home Program Re-Evaluation Ending Re-evaluation ending: Please do not hesitate to contact me at [phone] by phone or if you have questions or concerns regarding this new plan of care! Sincerely, BIANCA Marin/Nette, CHT 11/01/23 7861 CC: Dr. Layla Ribera MD; Dr. Oneil Marks MD MK Signed For Medicare only, by signing this I certify the plan of care. Physicians Signature Date Normal [facility] Re-Evalution OT [facility] [address] [facility] [place] [address] / REEVALUATION / MEDICARE RECERTIFICATION OCCUPATIONAL THERAPY MR#: [id number] Acct: [id number] Name: DAX DUARTE Rep #: [id number] : 1955 68 From: Laury VALENZUELA/FRANCISCO Harding Referring Dr.: Dr. Oneil Marks MD Status: R EG RCR Insurance: [employer] Eval Date: SELF PAY INSURANCE Re-Evaluation Intro: Dr. Oneil Marks MD, It has been my pleasure to treat DAX DUARTE over the last 13 visits for left distal radius fx. Please see the progress note below for an update on the occupational therapy plan of care! Subjective Subjective: pt arrives to session states she continues to have difficulty with forearm sup/pron limiting pts IND. limited wrist ex and difficulty putting wt. on left UE Objective Objective/Function: left forearm pronation 45* right 80* left forearm supination 60* right 80* Left wrist ROM 30/40 right 65/70 left vice investigator strength 20# right is 40# left lateral pinch 8# right 16# left tripod pinch 7# right 12# pts left hand swelling and scar adhesions initially limited pts ROM gains- pt has now been able to consistently form a composite fist and initiate strengthening. pt continues to make gains with her strength- pt continues to demo with compensatory tania. due to her limited supination/pronation wrist extension has improved but continues to limit pt with use of left UE with bathing/ dressing tasks- pt would benefit from further skilled OT services 2x week for 8 weeks to increase pts ROM and strength. Plan Plan Frequency: 2x /Week Duration: 6 Weeks Visits in this POC: 13 Plan: cont with AROM light vice investigator for putty FES to increase muscle contraction Scar mtg use of elastomer PROM Goals Goals Patient Goals: Regain Mobility, Regain Strength, Improve Fine Motor Skills, Use Hand/Wrist/Arm Normally Again, Increase ROM, Be More Independent in ADLS and Resume Former Household Responsibilities (Cooking,Cleaning,Yard , etc.) Goal:: Pt will demo the ability to form a composite fist to hold and receive 10 coins without dropping coins/ and coin manipulation/money mtg. tasks and ind. With manipulating fasteners for dressing by D/C. Goal:: Pt will demo understanding of joint protection and ergonomics when performing BADLs and IADLs by d/c Pt will demo understanding of adaptive Equipment use to decrease stress on joints to allow pt to perform BADSL and IADLS at LEXUS level. Goal:100% adherence to protocol: Yes Goal:Daily scar massage when approriate: Yes Goal Progress: Progressing Goal:ROM equal to unaffected hand: Yes Goal Progress: Progressing Goal:Squilgeer/Pinch strength at least 75% of unaffected hand: Yes Goal Progress: progressing at 50% Goal:No pain with affected hand use: Yes Goal:PIP Circumferences equal to unaffected hand: Yes Goal:Full use of affected hand in daily activities including work: Yes Goal Progress: Progressing Goal:Decrease scar hypersensitivity: Yes (Goal Met) Anticipated Interventions Anticipated Interventions Anticipated Interventions: A/AAROM/PROM, Strengthening, Scar Care, Triggerpoint Release, Desensitization, Sensory Retraining, Modalities, Orthoses, Joint Protection/Energy Conservation, Ergonomic Education, Fine Motor Coord/Best, Sensory Stimulation, Education re assistive Equipment, Education re Diagnosis, Caregiver Training and Home Program Re-Evaluation Ending Re-evaluation ending: Please do not hesitate to contact me at [phone] by phone or if you have questions or concerns regarding this new plan of care! Sincerely, BIANCA Marin/Nette, CHT 11/01/23 4511 CC: Dr. Layla Ribera MD; Dr. Oneil Marks MD MK Signed For Medicare only, by signing this I certify the plan of care. Physicians Signature Date Normal [facility] Re-Evalution OTon 10-27-2023 Re-Evalution OT [facility] Occupational Therapy [address] [place] [address] / REEVALUATION / MEDICARE RECERTIFICATION OCCUPATIONAL THERAPY MR#: [id number] Acct: [id number] Name: DAX DUARTE Rep #: [id number] : 1955 68 From: Laury VALENZUELA/Nette, T Referring Dr.: Dr. Oneil Marks MD Status: R EG RCR Insurance: [employer] Eval Date: SELF PAY INSURANCE Re-Evaluation Intro: Dr. Oneil Marks MD, It has been my pleasure to treat DAX DUARTE over the last 12 visits for left distal radius fx. Please see the progress note below for an update on the occupational therapy plan of care! Subjective Subjective: pt arrives states she is compliant with her HEP of PROM AAROM edema and strengthening. pt states she is trying to use her left UE with ADLs and IADLs but does get frustrated due to continued ROM deficits. pt feels strength continues to improve but still limits use of left UE with putting dishes away or picking up a grocery bag. Objective Objective/Function: left forearm pronation 45* left forearm supination 60* wrist ROM 30/40 left vice investigator strength 20# right is 40# left lateral pinch 8# right 16# left tripod pinch 7# right 12# pts left hand swelling and scar adhesions initially limited pts ROM gains- pt has now been able to consistently form a composite fist and initiate strengthening. pt continues to make gains with her strength- pt continues to demo with compensatory tania. due to her limited supination/pronation wrist extension has improved but continues to limit pt with use of left UE with bathing/ dressing tasks- pt would benefit from further skilled OT services 2x week for 8 weeks to increase pts ROM and strength. Plan Plan Frequency: 2x /Week Duration: 6 Weeks Visits in this POC: 12 Plan: cont with AROM light vice investigator for putty FES to increase muscle contraction Scar mtg use of elastomer PROM Goals Goals Patient Goals: Regain Mobility, Regain Strength, Improve Fine Motor Skills, Use Hand/Wrist/Arm Normally Again, Increase ROM, Be More Independent in ADLS and Resume Former Household Responsibilities (Cooking,Cleaning,Yard , etc.) Goal:: Pt will demo the ability to form a composite fist to hold and receive 10 coins without dropping coins/ and coin manipulation/money mtg. tasks and ind. With manipulating fasteners for dressing by D/C. Goal:: Pt will demo understanding of joint protection and ergonomics when performing BADLs and IADLs by d/c Pt will demo understanding of adaptive Equipment use to decrease stress on joints to allow pt to perform BADSL and IADLS at LEXUS level. Goal:100% adherence to protocol: Yes Goal:Daily scar massage when approriate: Yes Goal Progress: Progressing Goal:ROM equal to unaffected hand: Yes Goal Progress: Progressing Goal:Squilgeer/Pinch strength at least 75% of unaffected hand: Yes Goal Progress: progressing at 5# Goal:No pain with affected hand use: Yes Goal:Full use of affected hand in daily activities including work: Yes Goal:Decrease scar hypersensitivity: Yes Anticipated Interventions Anticipated Interventions Anticipated Interventions: A/AAROM/PROM, Strengthening, Scar Care, Triggerpoint Release, Desensitization, Sensory Retraining, Modalities, Orthoses, Joint Protection/Energy Conservation, Ergonomic Education, Fine Motor Coord/Best, Sensory Stimulation, Education re assistive Equipment, Education re Diagnosis, Caregiver Training and Home Program Re-Evaluation Ending Re-evaluation ending: Please do not hesitate to contact me at [phone] by phone or if you have questions or concerns regarding this new plan of care! Sincerely, Laury Fox, OTR/L, CHT 10/27/23 4484 CC: Dr. Layla Ribera MD; Dr. Oneil Marks MD YURY Signed For Medicare only, by signing this I certify the plan of care. Physicians Signature Date Normal [facility] Orthopedic Visit Reporton Orthopedic Visit Report [facility] [address] [place] [address] [place] [address] OFFICE VISIT Date of Service: 10/03/23 MR#: [id number] Acct: [id number] Name: DAX DUARTE Rep #: [id number] : 1955 Provider: Dr. Oneil becerra MD Age/Sex: 68/F [place] [facility] Status: Signed Intake Vital Signs 07/27/23 07:52 Height 5 ft 1 in Intake Visit Reasons: LEFT WRIST Chief Complaint: left wrist post op Is patient in pain?: No Allergies Penicillins Allergy (Intermediate, Verified 10/03/23 08:05) Hives Sulfa (Sulfonamide Antibiotics) Allergy (Intermediate, Verified 10/03/23 08:05) Hives meperidine [From Demerol] Adverse Reaction (Mild, Verified 10/03/23 08:05) Other Medications ibuprofen 200 mg tablet 200 mg PO Q6H PRN pain 07/15/23 [History Confirmed 10/03/23] acetaminophen 500 mg tablet (Tylenol Extra Strength) 1,000 mg PO Q6H PRN 07/29/23 [History Confirmed 10/03/23] PFSH Medical History Arthritis Migraine headache Non-smoker Post-menopausal Thyroid disease Wears glasses Surgical History Hx of colonoscopy Social History Smoking Status: Never smoker HPI LEFT WRIST Details: This documentation accurately reflects the service provided and the decisions made by me, Dr. Oneil Marks MD 10/03/23 0803. Part of today???s visit was documented by [ ], acting as scribe. DAX DUARTE is a 68 year old F here today for 8 weeks follow-up for wrist fracture with open reduction internal fixation and subsequent stiffness of the hand and wrist. No pain. Patient has been working on stretching and range of motion exercises with physical therapy. Patient does notice some symptoms where the hand is quite tight the wrist is stiff changing red and blue skin feeling shiny and sweaty Ortho Exam General General: Yes no acute distress Neurologic: Yes alert and Yes oriented x3 Psychologic: Yes reasonable and appropriate Right Wrist/Hand Skin/Wound: No Swelling (mild) and No Ecchymosis Left Wrist/Hand Skin/Wound: Yes CDI, Yes healed, No Swelling (mild), No Ecchymosis, Yes nail intact, Yes capillary refill normal and No erythema Left Wrist: No TTP Fracture site Motor: EPL: 4, FDP-2: 4, 1st Dorsal Interosseous: 4 and APB: 4 Sensation: Radial: I, Ulnar: I and Median: I WRIST: ext 10 flex 20, difficulty making a full fist, a bit shiny skin and tight looking Supplemental Info X-rays taken today 3 views of the wrist demonstrates the fracture to be well-healed well aligned the plate to be normally placed free of complications. Coding Level of Care Code Global Post Op Diagnoses Fracture of left distal radius S52.502A Assessment and Plan Assessment and Plan (1) Fracture of left distal radius: Status: Inactive Plan: 68 year old F here today for 8 weeks follow-up for wrist fracture with open reduction internal fixation and subsequent stiffness of the hand and wrist. Fracture looks healed. Patient has most likely symptoms of CRPS. I offered a referral to a pain specialist they declined for now but I explained to him the diagnosis and prognosis different treatment options available to the they are already doing quite a bit of hand therapy declined further interventions will keep on working on this on her own and follow-up in 2 to 3 months time. Orders: Orders Wrist min 3 Views Today S52.502A - Unspecified fracture of the lower end of left radius, initial encounter for closed fracture 10/03/23 0825 Date Oneil Marks MD Cosign Signature: Date (if applicable) CC: Normal [facility] Wrist min 3 Viewson 10-03-19 Wrist min 3 Views [facility] [address] [place] [address] Wrist min 3 Views MR#: [id number] Acct: [id number] Name: DAX DUARTE Rep #: [id number] : 1955 F 68 From: Benjie Ramirez MD PCP: Dr. Layla Ribera MD Status: DEP AMB Study: Wrist min 3 Views Date of Exam: 10/03/23 Exam# [id number] Ordering Dr: Oneil Marks MD [id number] STUDY: X-RAY - LEFT WRIST REASON FOR EXAM: Female, 68 years old. fu TECHNIQUE: 3 view(s) of the wrist were obtained. COMPARISON: 08/26/2023 FINDINGS: There is demineralization of the radius and ulna. Healed fracture of the distal radius after open reduction internal fixation with a volar plate and screws. Associated underlying ununited ulnar styloid fracture. Normal radiocarpal articulation. Normal distal radioulnar articulation. There is demineralization of the carpal bones. Normal carpal articulations. Normal carpometacarpal articulation of the thumb. Normal second through fifth carpometacarpal articulations. There is demineralization of the metacarpal bones. The soft tissue structures are unremarkable. RAD/Wrist min 3 Views IMPRESSION: Healed fracture of the distal radius after open reduction internal fixation. Electronically Signed: Benjie Ramirez MD at 20:25 EDT , CC: Dr. Layla Ribera MD; Dr. Oneil Marks MD [employer]: Signed Normal [facility] Re-Evalution OTon 09-30-2023 Re-Evalution OT [facility] Occupational Therapy [facility] [address] [place] [address] / REEVALUATION / MEDICARE RECERTIFICATION OCCUPATIONAL THERAPY MR#: [id number] Acct: [id number] Name: DAX DUARTE Rep #: [id number] : 1955 68 From: Laury Fox OTR/L, T Referring Dr.: Dr. Oneil Marks MD Status: R EG RCR Insurance: [facility] MEDICARE [employer] Eval Date: SELF PAY INSURANCE Re-Evaluation Intro: Dr. Oneil Marks MD, It has been my pleasure to treat DAX DUARTE over the last 4 visits for left distal radius fx. Please see the progress note below for an update on the occupational therapy plan of care! Subjective Subjective: pt arrives with spouse states she is doing OK trying to use her hand more still has swelling and stiffness states she is doing exercises 3-4 x a day if she has increase pain ( may be related to weather changes) pt states she backs off on her ex. Objective Objective/Function: wrist ROM 20/30 increase from 5/[address] 10 UD 5 sup 45*increase from 0 pron 60 * increase from 40* pt continues to demo limited ROM of wrist extension ( may be due to scar adhesions) thumb IP flexion is getting better, forearm Pron/sup continues to challenge pt. Due to this limited forearm rotation pt is compensating at shoulder increasing soreness. therapist has ed. pt on AAROM and to prevent compensation. pt demo understanding. Pt continues to struggle as well as limited composite fist. Hand is more swollen in AM increasing joint PIP tightness. pt has initiated vice investigator strengthening and UB strengthening as cat. pt does have compression glove she will use on and off. pt would benefit from further skilled OT services 2x week for 8 weeks to continue to strength and improve pts ROM. Plan Plan Frequency: 2-3x /Week Duration: 3 Months Visits in this POC: 13 Plan: cont with AROM light vice investigator for putty FES to increase muscle contraction Scar mtg use of elastomer PROM Goals Goals Patient Goals: Regain Mobility, Regain Strength, Improve Fine Motor Skills, Use Hand/Wrist/Arm Normally Again, Increase ROM, Be More Independent in ADLS and Resume Former Household Responsibilities (Cooking,Cleaning,Yard , etc.) Goal:: Pt will demo the ability to form a composite fist to hold and receive 10 coins without dropping coins/ and coin manipulation/money mtg. tasks and ind. With manipulating fasteners for dressing by D/C. Goal:: Pt will demo understanding of joint protection and ergonomics when performing BADLs and IADLs by d/c Pt will demo understanding of adaptive Equipment use to decrease stress on joints to allow pt to perform BADSL and IADLS at LEXUS level. Goal:100% adherence to protocol: Yes Goal:Daily scar massage when approriate: Yes Goal Progress: Progressing Goal:ROM equal to unaffected hand: Yes Goal Progress: Progressing Goal:Squilgeer/Pinch strength at least 75% of unaffected hand: Yes Goal Progress: progressing at 5# Goal:No pain with affected hand use: Yes Goal:Full use of affected hand in daily activities including work: Yes Goal:Decrease scar hypersensitivity: Yes Anticipated Interventions Anticipated Interventions Anticipated Interventions: A/AAROM/PROM, Strengthening, Scar Care, Triggerpoint Release, Desensitization, Sensory Retraining, Modalities, Orthoses, Joint Protection/Energy Conservation, Ergonomic Education, Fine Motor Coord/Best, Sensory Stimulation, Education re assistive Equipment, Education re Diagnosis, Caregiver Training and Home Program Re-Evaluation Ending Re-evaluation ending: Please do not hesitate to contact me at [phone] by phone or if you have questions or concerns regarding this new plan of care! Sincerely, Laury Fox OTR/L, CHT 09/30/23 0732 CC: Dr. Layla Ribera MD; Dr. Oneil Marks MD MK Signed For Medicare only, by signing this I certify the plan of care. Physicians Signature Date Normal [facility] Re-Evalution OTon 09-16-2023 Re-Evalution OT [facility] Occupational Therapy [facility] [address] [place] [address] / REEVALUATION / MEDICARE RECERTIFICATION OCCUPATIONAL THERAPY MR#: [id number] Acct: [id number] Name: DAX DUARTE Rep #: [id number] : 1955 68 From: Laury VALENZUELA/L, CHT Referring Dr.: Dr. Oneil Marks MD Status: R EG RCR Insurance: [employer] Eval Date: SELF PAY INSURANCE Re-Evaluation Intro: Dr. Oneil Marks MD, It has been my pleasure to treat DAX DUARTE over the last 10 visits for left distal radius fx. Please see the progress note below for an update on the occupational therapy plan of care! Subjective Subjective: pt arrives to OT session with compression glove on- states she has been able to use finger tips with putting her socks on as well as with other dressing tasks. Pt still has concerns with her scar, limited ability to make a fist and inability to fully turn palm up or down. Objective Objective/Function: left wrist 25/30 increase from 05/18 left forearm supination 60* increase from 0 left forearm pronation 45* increase from 0 Due to limited forearm supination pronation pt is compensating at her shoulder with IR and ER this is causing increase pain and tenders in left shoulder- ( therapist advised pt to make sure she is performing light AROM in all plans to what her comfort is) pt is unable to form a composite fist at this time- she is 1.5 away this has improved from 2.5 away pt demo with a 5# vice investigator strength a increase from unable. pt demo with scar adhesions on limiting IP flexion of thumb increasing pts use of left CMC motion to get pinch on large objects. pt is making gains with her recovery but due to edema and scar and complexity of fx pt continues to struggle with perform her ADLs and IADLs at her PLOF. Pt would benefit from further skilled OT services 2-3x week for 12 weeks. Pt demo understanding and agrees to POC. Plan Plan Frequency: 2-3x /Week Duration: 3 Months Visits in this POC: 24 Plan: cont with AROM light vice investigator for putty FES to increase muscle contraction Scar mtg use of elastomer PROM Goals Goals Patient Goals: Regain Mobility, Regain Strength, Improve Fine Motor Skills, Use Hand/Wrist/Arm Normally Again, Increase ROM, Be More Independent in ADLS and Resume Former Household Responsibilities (Cooking,Cleaning,Yard , etc.) Goal:: Pt will demo the ability to form a composite fist to hold and receive 10 coins without dropping coins/ and coin manipulation/money mtg. tasks and ind. With manipulating fasteners for dressing by D/C. Goal:: Pt will demo understanding of joint protection and ergonomics when performing BADLs and IADLs by d/c Pt will demo understanding of adaptive Equipment use to decrease stress on joints to allow pt to perform BADSL and IADLS at LEXUS level. Goal:100% adherence to protocol: Yes Goal:Daily scar massage when approriate: Yes Goal Progress: Progressing Goal:ROM equal to unaffected hand: Yes Goal Progress: Progressing Goal:Squilgeer/Pinch strength at least 75% of unaffected hand: Yes Goal Progress: progressing at 5# Goal:No pain with affected hand use: Yes Goal:Full use of affected hand in daily activities including work: Yes Goal:Decrease scar hypersensitivity: Yes Anticipated Interventions Anticipated Interventions Anticipated Interventions: A/AAROM/PROM, Strengthening, Scar Care, Triggerpoint Release, Desensitization, Sensory Retraining, Modalities, Orthoses, Joint Protection/Energy Conservation, Ergonomic Education, Fine Motor Coord/Best, Sensory Stimulation, Education re assistive Equipment, Education re Diagnosis, Caregiver Training and Home Program Re-Evaluation Ending Re-evaluation ending: Please do not hesitate to contact me at [phone] by phone or if you have questions or concerns regarding this new plan of care! Sincerely, Laury Fox, OTR/L, CHT 09/16/23 0720 CC: Dr. Layla Ribera MD; Dr. Oneil Marks MD MK Signed For Medicare only, by signing this I certify the plan of care. Physicians Signature Date Normal [facility] US THYROID/PARATHYROIDon [facility] JUANPABLO SCREENINGon 06-01-2022 [facility] THYROID/PARATHYROIDon [facility] Vital Signs Date Time Vital Sign Value Performing Clinician Facility 04-09-2025 14:15-0400 Body height 157.5 cm Layla Ribera MD Work Phone: [facility] 04-09-2025 14:15-0400 Body mass index (BMI) [Ratio] 19.6 kg/m2 Layla Ribera MD Work Phone: [facility] 04-09-2025 14:15-0400 Body weight 48.6 kg Layla Ribera MD Work Phone: [facility] 04-09-2025 14:15-0400 Diastolic blood pressure 88 mm[Hg] Layla Ribera MD Work Phone: [facility] 04-09-2025 14:15-0400 Heart rate 100 /min Layla Ribera MD Work Phone: [facility] 04-09-2025 14:15-0400 Respiratory rate 18 /min Layla Ribera MD Work Phone: [facility] 04-09-2025 14:15-0400 Systolic blood pressure 148 mm[Hg] Layla Ribera MD Work Phone: [facility] 09-29-2024 14:42-0500 Body mass index (BMI) [Ratio] 20.16 kg/m2 Eduardo Paris MD Work Phone: [facility] 09-29-2024 14:42-0500 Body temperature 98.29 [degF] Eduardo Paris MD Work Phone: [facility] 09-29-2024 14:42-0500 Body weight 50 kg Eduardo Paris MD Work Phone: [facility] 09-29-2024 14:42-0500 Diastolic blood pressure 84 mm[Hg] Eduardo Paris MD Work Phone: [facility] 09-29-2024 14:42-0500 Heart rate 98 /min Eduardo Paris MD Work Phone: [facility] 09-29-2024 14:42-0500 Respiratory rate 18 /min Eduardo Paris MD Work Phone: [facility] 09-29-2024 14:42-0500 SaO2% (BldA) [Mass fraction] 99 % Eduardo Paris MD Work Phone: [facility] 09-29-2024 14:42-0500 Systolic blood pressure 144 mm[Hg] Eduardo Paris MD Work Phone: [facility] 11-08-2023 08:12-0400 Body height 157.5 cm Layla Ribera MD Work Phone: [facility] 11-08-2023 08:12-0400 Body weight 44.77 kg Layla Ribera MD Work Phone: [facility] 11-08-2023 08:12-0400 Diastolic blood pressure 84 mm[Hg] Layla Ribera MD Work Phone: [facility] 11-08-2023 08:12-0400 Heart rate 96 /min Layla Ribera MD Work Phone: [facility] 11-08-2023 08:12-0400 Respiratory rate 18 /min Layla Ribera MD Work Phone: [facility] 11-08-2023 08:12-0400 Systolic blood pressure 138 mm[Hg] Layla Ribera MD Work Phone: [facility] 07-27-2023 15:35-0500 Diastolic blood pressure 72 mm[Hg] Dr. Layla Ribera Work Phone: [facility] 07-27-2023 15:35-0500 Heart rate 95 /min Dr. Layla Ribera Work Phone: [facility] 07-27-2023 15:35-0500 Respiratory rate 18 /min Dr. Layla Ribera Work Phone: 9(238)911-586183 [address] 07-27-2023 15:35-0500 SaO2% (BldA) [Mass fraction] 96 % Dr. Layla Ribera Work Phone: 0(149)309-152342 [place] [address] 07-27-2023 15:35-0500 Systolic blood pressure 142 mm[Hg] Dr. Layla Ribera Work Phone: 9(682)[phone] [place] [address] 07-27-2023 11:30-0500 Body temperature 97.8 [degF] Dr. Layla Ribera Work Phone: 1(772)554-781683 [address] 07-27-2023 07:52-0500 Body height 154.[address] Layla Ribera Work Phone: 3(568)243-307083 [address] 07-27-2023 07:52-0500 Body mass index (BMI) [Ratio] 19.4 kg/m2 Dr. Layla Ribera Work Phone: 7(669)[phone] [address] 07-27-2023 07:52-0500 Body weight 46.[address] Layla Ribera Work Phone: 2(017)389-273583 [address] 07-15-2023 09:15-0500 Body mass index (BMI) [Ratio] 20.4 kg/m2 Dr. Layla Ribera Work Phone: 7(155)328-909742 [place] [address] 07-15-2023 09:15-0500 Body weight 48.[address] Layla Ribera Work Phone: 2(025)741-653783 [address] 07-12-2023 13:13-0500 Diastolic blood pressure 64 mm[Hg] [facility] 07-12-2023 13:13-0500 Systolic blood pressure 141 mm[Hg] [facility] 07-12-2023 11:49-0500 Heart rate 87 /min [facility] 07-12-2023 11:49-0500 Inhaled oxygen flow rate 2 L/min [facility] 07-12-2023 11:49-0500 Respiratory rate 15 /min [facility] 07-12-2023 11:44-0500 SaO2% (BldA) [Mass fraction] 99 % [facility] 07-12-2023 09:28-0500 Body height 154.94 cm [facility] 07-12-2023 09:28-0500 Body mass index (BMI) [Ratio] 21.1 kg/m2 [facility] 07-12-2023 09:28-0500 Body temperature 96.2 [degF] [facility] 07-12-2023 09:28-0500 Body weight 50.8 kg [facility] 11-04-2022 07:53-0400 Body height 157.5 cm Layla Ribera MD Work Phone: [facility] 11-04-2022 07:53-0400 Body weight 48.99 kg Layla Ribera MD Work Phone: [facility] 11-04-2022 07:53-0400 Diastolic blood pressure 90 mm[Hg] Layla Ribera MD Work Phone: [facility] 11-04-2022 07:53-0400 Heart rate 94 /min Layla Ribera MD Work Phone: [facility] 11-04-2022 07:53-0400 Respiratory rate 16 /min Layla Ribera MD Work Phone: [facility] 11-04-2022 07:53-0400 Systolic blood pressure 160 mm[Hg] Layla Ribera MD Work Phone: [facility] 11-03-2021 08:41-0400 Body height 156.2 cm Layla Ribera MD Work Phone: [facility] 11-03-2021 08:41-0400 Body weight 48.76 kg Layla Ribera MD Work Phone: [facility] 11-03-2021 08:41-0400 Diastolic blood pressure 80 mm[Hg] Layla Ribera MD Work Phone: [facility] 11-03-2021 08:41-0400 Heart rate 84 /min Layla Ribera MD Work Phone: [facility] 11-03-2021 08:41-0400 Respiratory rate 16 /min Layla Ribera MD Work Phone: [facility] 11-03-2021 08:41-0400 Systolic blood pressure 150 mm[Hg] Layla Ribera MD Work Phone: [facility] Encounters Encounter Date Encounter Type Care Provider Facility Start: 04-09-2025 End: 04-09-2025 ambulatory LAYLA RIBERA Facility:[facility] Start: 04-09-2025 End: 04-09-2025 Patient encounter procedure Layla Ribera MD Work Phone: [facility] Comment on above: Encounter for Medica re annual wellness exam (Primary Dx); Screening for depression; Encounter for screening examination for other mental health and behavioral disorders; Encounter for screening mammogram for malignant neoplasm of breast; Personal history of (healed) osteoporosis fracture Start: 09-29-2024 End: 09-29-2024 ambulatory LAYLA RIBERA Facility:[facility] Start: 09-29-2024 End: 09-29-2024 Office outpatient visit 25 minutes Eduardo Paris MD Work Phone: [facility] Comment on above: Herpes zoster withou t complication (Primary Dx) Start: 09-03-2024 End: 09-03-2024 ambulatory Venkat Aguirre [place] Facility:[facility] Start: 08-02-2024 End: 08-02-2024 Telephone encounter Layla Ribera MD Work Phone: [facility] Start: 07-30-2024 End: 07-30-2024 ambulatory LAYLA RIBERA Facility:[facility] Start: 07-30-2024 End: 07-30-2024 Subsequent hospital visit by physician [facility] Comment on above: Visit for screening mammogram [Z12.31] Screening for osteop orosis [Z13.820] Start: 04-12-2024 End: 04-12-2024 ambulatory Rolando Moraleso [facility] Start: 04-12-2024 End: 04-12-2024 Patient encounter procedure Rolando Moraleso [facility] Comment on above: Population Health Na vigation Outreach (omw) Start: 01-18-2024 End: 04-12-2024 Orders Only Layla Ribera MD Work Phone: [facility] Comment on above: Visit for screening mammogram (Primary Dx) Start: 11-29-2023 End: 11-29-[address] Layla Ribera Work Phone: [facility] Work Phone: Start: 11-29-2023 End: 11-29-[address] Layla Ribera Work Phone: [facility]Occupational Therapy Work Phone: Start: 11-28-2023 ambulatory [facility] [place] Start: 11-28-2023 Patient encounter procedure [facility] [place] Comment on above: Population Health Na vigation Outreach (omw) Start: 11-08-2023 End: 11-08-2023 Patient encounter procedure Layla Ribera MD Work Phone: [facility] [place] Comment on above: Encounter for Medica re annual wellness exam (Primary Dx); REBA (generalized anxiety disorder); H/O left wrist surgery; Screening for colon cancer Start: 10-17-2023 ambulatory [facility]ando [facility] [place] Comment on above: Population Health Na vigation Outreach (Ob/peds/) Start: 10-03-2023 End: 10-03-[address] Layla Ribera Work Phone: [facility] Work Phone: Start: 10-03-2023 End: 10-03-2023 ambulatory One[facility] Start: 09-14-2023 ambulatory Joelle Freeman RN [facility] Care Management Start: 08-26-2023 End: 08-26-[address] Layla Ribera Work Phone: [facility] Work Phone: Start: 08-15-2023 End: 08-15-[address] Layla Ribera Work Phone: [facility] Work Phone: Start: 08-09-2023 End: 08-09-[address] Layla Ribera Work Phone: [facility] Work Phone: Start: 07-27-2023 Non-patient / Non-visit Dr. Pauline Ribera Work Phone: [facility] Start: 07-27-2023 End: 07-27-2023 Admission to same day surgery center Dr. Layla Ribera Work Phone: [facility]Surgical Day Care Start: 07-27-2023 End: 07-27-[address] Layla Ribera Work Phone: [facility] Work Phone: Start: 07-15-2023 End: 07-15-[address] Layla Ribera Work Phone: [facility] Work Phone: Start: 07-12-2023 End: 07-12-2023 Emergency department patient visit [facility]Emergency Department Work Phone: Start: 06-07-2023 Documentation procedure Mammog moises Coordinator [facility] Start: 06-07-2023 Letter encounter Mammography Coordinator [facility] Department Start: 06-06-2023 End: 11-13-2023 Subsequent hospital visit by physician [facility] Comment on above: Encounter for screen ing mammogram for malignant neoplasm of breast [Z12.31] Start: 11-22-2022 ambulatory Bety Serenity [facility] [place] Comment on above: Population Health Na vigation Outreach (Navigator [place] care gap outreach) Start: 11-10-2022 End: 11-10-2022 Subsequent hospital visit by physician [facility] Work Phone: Radiology Comment on above: Thyroid nodule [E04. 1] Start: 11-04-2022 End: 11-04-2022 Patient encounter procedure Layla Ribera MD Work Phone: [facility] [place] Comment on above: Medicare annual well ness visit, subsequent (Primary Dx); Screening for colon cancer; Thyroid nodule Start: 11-01-2022 Telephone encounter Beverly harding [facility] [place] Comment on above: Research F/U (PDP 19 -151 Consent) Start: 06-01-2022 Documentation procedure Mammog moises Coordinator [facility] Start: 06-01-2022 Letter encounter Mammography Coordinator [facility] Start: 06-01-2022 End: 06-01-2022 Subsequent hospital visit by physician [facility] Comment on above: Visit for screening mammogram [Z12.31] Start: 12-17-2021 ambulatory Lidia [facility] [place] Comment on above: Population Health Na vigation Outreach ([place] Care Gap) Start: 11-05-2021 End: 11-05-2021 Subsequent hospital visit by physician [facility] Work Phone: Radiology Comment on above: Thyroid nodule [E04. 1] Start: 11-03-2021 End: 11-03-2021 Patient encounter procedure Layla Ribera MD Work Phone: [facility] [place] Comment on above: Medicare annual well ness visit, subsequent (Primary Dx); Screening for colon cancer; Thyroid nodule; Hyperlipidemia, unspecified hyperlipidemia type; Osteoporosis without current pathological fracture, unspecified osteoporosis type; Elevated glucose Procedures Date Procedure Procedure Detail Performing Clinician Start: 04-09-2025 Adult depression screening assessment Layla Ribera MD Work Phone: Start: 11-08-2023 Adult depression screening assessment Layla Ribera MD Work Phone: Start: 10-03-2023 Plain x-ray of wrist Dr Osmani Ribera Work Phone: Start: 08-26-2023 Plain x-ray of wrist Dr Osmani Ribera Work Phone: Start: 08-09-2023 Plain x-ray of wrist Dr Osmani Ribera Work Phone: Start: 07-27-2023 Open reduction of fracture of radius with internal fixation Dr. Layla Ribera Work Phone: Start: 07-27-2023 Fluoroscopic guidance Avery Ribera Work Phone: Start: 07-27-2023 Plain x-ray of wrist Dr Osmani Ribera Work Phone: Start: 07-12-2023 Plain x-ray of wrist Start: 07-12-2023 Plain x-ray of wrist Start: 11-10-2022 Us soft tissue head & neck real time imge docm Layla Ribera MD Work Phone: Start: 06-01-2022 End: 06-01-2022 Mammography Layla Ribera MD Work Phone: Start: 11-05-2021 Us soft tissue head & neck real time imge docm Layla Ribera MD Work Phone: Start: 11-04-2021 Lipid 1996 panel - S tru or Plasma Us 2 Work Phone: Start: 10-29-2021 Adult depression screening assessment Layla Ribera MD Work Phone: Start: 05-28-2021 Mammography Layla wong MD Work Phone: H/O: surgery H/O left wrist surgery Layla Ribera MD Work Phone: Plan of Treatment Date Care Activity Detail Author Start: 2028 RSV Vaccine (1 - 1-d ose 75+ series) RSV Vaccine (1 - 1-dose 75+ series) [facility] Start: 11-04-2026 Lipid 1996 panel - S tru or Plasma Lipid Screening [facility] Start: 11-04-2026 Lipid panel Lipid Screening [facility] Start: 11-04-2026 LIPID SCREEN LIPID SCREEN [facility] Start: 07-30-2026 Screening for osteoporosis Bone Density Screening [facility] Start: 04-09-2026 Anxiety Screening Anxiety Screening [facility] Start: 04-09-2026 Depression Screening Depression Scre [facility] Start: 07-31-2025 End: 07-31-2025 Patient encounter procedure 07/31/2025 7:30 AM EST Appointment Mammogram [address] [address] [place] [address] Dx: Encounter for screening mammogram for malignant neoplasm of breast [Z12.31] Mammogram Comment on above: Dx: Encounter for sc reening mammogram for malignant neoplasm of breast [Z12.31] Start: 07-30-2025 End: 05-09-2026 MG Breast Screening [facility] Radiology Routine Encounter for screening mammogram for malignant neoplasm of breast Expected: 07/30/2025 (Approximate), Expires: 05/09/2026 [facility] Work Phone: Comment on above: Expected: 07/30/2025 (Approximate), Expires: 05/09/2026 Start: 07-30-2025 Screening for malign ant neoplasm of breast Mammogram Screening [facility] Start: 04-18-2025 Screening for malign ant neoplasm of colon [facility] Start: 03-25-2025 Influenza vaccination Influenza Vacc ine (#1) [facility] Start: 11-07-2024 Anxiety Screening Anxiety Screening [facility] Start: 11-07-2024 Depression Screening Depression Scre ing [facility] Start: 11-07-2024 RSV Vaccine (1 - 1-d ose 60+ series) RSV Vaccine (1 - 1-dose 60+ series) [facility] Comment on above: Postponed from 04/06 (Declined at this time) Start: 11-07-2024 Shingrix Vaccine (1 of 2) Saez grix Vaccine (1 of 2) [facility] Comment on above: Postponed from 04/06 (Declined at this time) Start: 11-04-2024 DIABETES SCREEN [facility] Start: 11-04-2024 Diabetes Screening Diabetes Screenin g [facility] Start: 10-08-2024 Covid-19 Vaccine ( season) Covid-19 Vaccine () [facility] Start: 07-25-2024 Advance Directive Discussion Advance Directive Discussion [facility] Start: 06-07-2024 End: 06-07-2024 Patient encounter procedure 06/07/2024 7:50 AM EST Appointment Mammogram [address] [place] [address] [facility] S[facility] Mammogram Comment on above: JUANPABLO SCREENING Start: 06-06-2024 Mammography Mammogram Screening [facility] Start: 06-06-2024 Screening for malign ant neoplasm of breast Mammogram Screening [facility] Start: 05-24-2024 End: 05-24-2024 Patient encounter procedure 05/24/2024 11:15 AM EDT Appointment Radiology [address] [place] [id number] Screening for osteoporosis [Z13.820]; Other closed fracture of first metacarpal bone of left hand, unspecified portion of metacarpal, initial encounter [S62.292A] Radiology Comment on above: Screening for osteop orosis [Z13.820]; Other closed fracture of first metacarpal bone of left hand, unspecified portion of metacarpal, initial encounter [S62.292A] Start: 03-25-2024 Covid-19 Vaccine ( season) Covid-19 Vaccine () [facility] Start: 03-25-2024 Influenza vaccination [facility] Start: 11-06-2023 COLORECTAL CANCER SCREENING COLORECTAL CANCER SCREENING [facility] Start: 11-06-2023 FECAL OCCULT BLOOD FECAL OCCULT BLOO D [facility] Start: 11-06-2023 Screening for malign ant neoplasm of colon [facility] Start: 11-05-2023 BONE DENSITY BONE DENSITY [facility] Comment on above: Postponed from 04/06 (Declined at this time) Start: 11-05-2023 Bone Density Screening Bone Density Screening [facility] Comment on above: Postponed from 04/06 (Declined at this time) Start: 11-05-2023 Screening for osteoporosis Bone Density Screening [facility] Comment on above: Postponed from 04/06 (Declined at this time) Start: 08-27-2023 Covid-19 Vaccine ( season) Covid-19 Vaccine () [facility] Start: 08-09-2023 Patient referral [facility] Work Phone: Start: 07-27-2023 Application of ice collar, cap or bag [facility] Start: 07-27-2023 Assessment of risk o f venous thromboembolism [facility] Start: 07-27-2023 Catheterization of vein [facility] Start: 07-27-2023 Deep breathing and coughing exercises [facility] Start: 07-27-2023 Following clinical pathway protocol [facility] Start: 07-27-2023 Incentive spirometry [facility] Start: 07-27-2023 Introduction of urin vin catheter [facility] Start: 07-27-2023 Notification of physician [facility] Start: 07-27-2023 End: 07-27-2023 Patient discharge [facility] Start: 07-27-2023 Patient education [facility] Start: 07-27-2023 Taking patient vital signs [facility] Start: 07-27-2023 Vital signs measurements [facility] Start: 07-27-2023 [facility] Start: 07-27-2023 Medication education [facility] Start: 07-25-2023 Advance Directive Discussion Advance Directive Discussion [facility] Start: 07-25-2023 Depression Assessment Depression Ass essment [facility] Start: 07-12-2023 Cltx dstl rdl fx/epi physl sep w/manj when perf TREAT FRACTURE RADIUS/ULNA [facility] Start: 07-12-2023 [facility] Start: 06-01-2023 Mammography [facility] Start: 03-25-2023 Covid-19 Vaccine () Covid-19 Vaccine () [facility] Start: 09-01-2023 Influenza vaccination [facility] Start: 10-29-2022 Adult depression screening assessment DEPRESSION SCREENING [facility] Start: 07-25-2022 ADVANCE DIRECTIVE DISCUSSION ADVANCE DIRECTIVE DISCUSSION [facility] Start: 07-25-2022 DEPRESSION ASSESSMENT DEPRESSION ASS ESSMENT [facility] Start: 05-28-2022 Mammography MAMMOGRAM [facility] Start: 03-25-2022 Influenza vaccination [facility] Start: 11-04-2021 End: 01-04-2022 Comprehensive metabolic 2000 panel - Serum or Plasma COMP METABOLIC PANEL Lab Routine Hyperlipidemia, unspecified hyperlipidemia type Elevated glucose Expected: 11/04/2021 (Approximate), Expires: 01/04/2022 [facility] Work Phone: Comment on above: Expected: 11/04/2021 (Approximate), Expires: 01/04/2022 Start: 11-04-2021 End: 01-04-2022 Hemoglobin A1c/Hemoglobin.total in Blood HGB A1C Lab Routine Elevated glucose Expected: 11/04/2021 (Approximate), Expires: 01/04/2022 [facility] Work Phone: Comment on above: Expected: 11/04/2021 (Approximate), Expires: 01/04/2022 Start: 11-04-2021 End: 01-04-2022 LIPID PANEL BASIC LIPID PANEL BASIC Lab Routine Hyperlipidemia, unspecified hyperlipidemia type Expected: 11/04/2021 (Approximate), Expires: 01/04/2022 [facility] Work Phone: Comment on above: Expected: 11/04/2021 (Approximate), Expires: 01/04/2022 Start: 11-04-2021 End: 01-04-2022 Thyrotropin [Units/volume] in Serum or Plasma TSH BLD Lab Routine Thyroid nodule Expected: 11/04/2021 (Approximate), Expires: 01/04/2022 [facility] Work Phone: Comment on above: Expected: 11/04/2021 (Approximate), Expires: 01/04/2022 Start: 11-04-2021 End: 01-04-2022 VITAMIN D 25 HYDROXY VITAMIN D 25 HYDROXY Lab Routine Osteoporosis without current pathological fracture, unspecified osteoporosis type Expected: 11/04/2021 (Approximate), Expires: 01/04/2022 [facility] Work Phone: Comment on above: Expected: 11/04/2021 (Approximate), Expires: 01/04/2022 Start: 08-28-2021 LIPID SCREEN LIPID SCREEN [facility] Start: 08-18-2021 COVID-19 VACCINE (4 - Booster for Pfizer series) COVID-19 VACCINE (4 - Booster for Pfizer series) [facility] Start: 07-25-2021 DEPRESSION ASSESSMENT DEPRESSION ASS ESSMENT [facility] Start: 02-05-2021 COLORECTAL CANCER SCREENING COLORECTAL CANCER SCREENING [facility] Start: 02-05-2021 FECAL OCCULT BLOOD FECAL OCCULT BLOO D [facility] Start: 10-24-2019 PNEUMOCOCCAL: 65+ (2 - PPSV23 if available, else PCV20) PNEUMOCOCCAL: 65+ (2 - PPSV23 if available, else PCV20) [facility] Start: 10-24-2019 PNEUMOCOCCAL: 65+ (2 - PPSV23 or PCV20) PNEUMOCOCCAL: 65+ (2 - PPSV23 or PCV20) [facility] Start: 08-28-2019 DIABETES SCREEN DIABETES SCREEN [facility] Start: 2018 BONE DENSITY BONE DENSITY [facility] Start: 2018 PNEUMOVAX AGE 65 AND OVER WITH 5YR LOOKBACK (#1) PNEUMOVAX AGE 65 AND OVER WITH 5YR LOOKBACK (#1) [facility] Start: 2018 Screening for osteoporosis Bone Density Screening [facility] Start: 02-01-2018 Urine microalbumin profile [facility] Start: 2013 RSV Vaccine (1 - 1-d ose 60+ series) RSV Vaccine (1 - 1-dose 60+ series) [facility] Start: 2003 SHINGRIX VACCINE (1 of 2) SAEZ GRIX VACCINE (1 of 2) [facility] Start: 1998 COLOGUARD (FIT-DNA) COLOGUARD (FIT-D NA) [facility] Start: 1998 Colonoscopy COLONOSCOPY [facility] Start: [address] COLONOGRAPHY [facility] Start: 1998 Screening for malign ant neoplasm of colon [facility] Start: 1998 SIGMOIDOSCOPY SIGMO[facility]OSCOPY [facility] End: 05-12-2025 BD DXA TRABECULAR BONE SCORE (TBS) BD DXA TRABECULAR BONE SCORE (TBS) Radiology Routine Screening for osteoporosis Closed fracture of left wrist with routine healing, subsequent encounter 1 Occurrences starting 04/12/2024 until 05/12/2025 [facility] Comment on above: 1 Occurrences starti ng 04/12/2024 until 05/12/2025 BD DXA TRABECULAR DIYA NE SCORE (TBS) BD DXA TRABECULAR BONE SCORE (TBS) Radiology Routine Screening for osteoporosis Closed fracture of left wrist with routine healing, subsequent encounter 07/30/2024 8:27 AM EST [facility] COLOGUARD COLOGUARD Lab Ro utine Screening for colon cancer Ordered: 11/08/2023 [facility] Work Phone: Comment on above: Ordered: 11/08/2023 End: 05-12-2025 DXA Skeletal system.axial Views for bone density DXA-AXIAL SKELETON Radiology Routine Screening for osteoporosis Closed fracture of left wrist with routine healing, subsequent encounter 1 Occurrences starting 04/12/2024 until 05/12/2025 [facility] Work Phone: Comment on above: 1 Occurrences starti ng 04/12/2024 until 05/12/2025 DXA Skeletal system. axial Views for bone density DXA-AXIAL SKELETON Radiology Routine Screening for osteoporosis Closed fracture of left wrist with routine healing, subsequent encounter 07/30/2024 8:27 AM Pure [place]lim[place] [facility] Work Phone: Hemoglobin.elio selby alOsmanilower [Presence] in Stool by Immunoassay FECAL OCCULT BLOOD TEST Lab Routine Screening for colon cancer Ordered: 11/03/2021 [facility] Work Phone: Comment on above: Ordered: 11/03/2021 Hemoglobin.elio selby al.lower [Presence] in Stool by Immunoassay FECAL OCCULT BLOOD TEST Lab Routine Screening for colon cancer Ordered: 11/04/2022 [facility] Work Phone: Comment on above: Ordered: 11/04/2022 End: 12-22-2023 JUANPABLO SCREENING [facility] SCREENING Radiology Routine Encounter for screening mammogram for malignant neoplasm of breast 1 Occurrences starting 11/22/2022 until 12/22/2023 [facility] Work Phone: Comment on above: 1 Occurrences starti ng 11/22/2022 until 12/22/2023 JUANPABLO SCREENING JUANPABLO SCREENING Ra diology Routine Encounter for screening mammogram for malignant neoplasm of breast 06/06/2023 7:50 AM EST [facility] Work Phone: MG Breast Screening [facility] Work Phone: Comment on above: Ordered: 01/19/2024 Patient Education [facility] Work Phone: Patient referral [facility] Work Phone: End: 12-03-2022 Us soft tissue head & neck real time imge docm US THYROID/PARATHYROID Radiology Routine Thyroid nodule 1 Occurrences starting 11/03/2021 until 12/03/2022 [facility] Work Phone: Comment on above: 1 Occurrences starti ng 11/03/2021 until 12/03/2022 End: 12-04-2023 Us soft tissue head & neck real time imge docm US THYROID/PARATHYROID Radiology Routine Thyroid nodule 1 Occurrences starting 11/04/2022 until 12/04/2023 [facility] Work Phone: Comment on above: 1 Occurrences starti ng 11/04/2022 until 12/04/2023 [facility] Immunizations Immunization Date Immunization Notes Care Provider [facility] 04-20-2024 influenza virus vaccine, unspecified formulation Layla Ribera MD Work Phone: [facility] 09-27-2020 COVID-19 vaccine, ag e 12+ yr (PFIZER-BIONTECH - PURPLE TOP) Layla Ribera MD Work Phone: [facility] 09-02-2020 COVID-19 vaccine, ag e 12+ yr (PFIZER-BIONTECH - PURPLE TOP) Layla Ribera MD Work Phone: [facility] 04-26-2020 influenza, injectabl e, quadrivalent, contains preservative Layla Ribera MD Work Phone: [facility] Work Phone: 04-26-2020 influenza virus vaccine, unspecified formulation Us 2 Work Phone: [facility] 05-03-2019 influenza, seasonal, injectable Layla Ribera MD Work Phone: [facility] 10-23-2018 pneumococcal conjuga te vaccine, 13 valent Layla Ribera MD Work Phone: [facility] 05-19-2015 influenza, seasonal, injectable Layla Ribera MD Work Phone: [facility] 05-15-2013 influenza virus vaccine, unspecified formulation Layla Ribera MD Work Phone: [facility] 04-29-2012 influenza virus vaccine, unspecified formulation Layla Ribera MD Work Phone: [facility] 07-07-2009 novel [id number], all formulations Layla Ribera MD Work Phone: [facility] Work Phone: 02-02-2008 tetanus toxoid, reduced diphtheria toxoid, and acellular pertussis vaccine, adsorbed Layla Ribera MD Work Phone: [facility] Work Phone: 06-03-2005 influenza virus vaccine, unspecified formulation Layla Ribera MD Work Phone: [facility] Work Phone: Payers Date Payer Category Payer Self-pay 2020 Medicare (Managed Care) [employer] [id number] 2020 Unknown ANTHEM BLUE CROS S AND BLUE SHIELD ANTHDYLON THOMAS O [id number] 2020-Present [phone] [address] [place] [address] O [id number] 2020 Unknown [id number] 2020 Medicare [id number] Unknown ANTHEM [id number] Unknown [id number] Unknown [id number] Unknown [id number] Unknown [id number] Social History Date Type Detail Facility Start: 09-04-2015 End: 11-04-2022 Tobacco smoking status NHIS Never smoked tobacco [facility] Start: 11-03-2021 End: 04-09-2025 Alcohol intake Current non-drinker of alcohol (finding) [facility] Start: 01-02-2020 End: 10-29-2022 History SDOH Alcohol Frequency 2 [facility] Start: 12-31-2019 End: 10-29-2021 History SDOH Alcohol Std Drinks 1 [facility] Start: 10-29-2021 History SDOH Social Connections [facility] Start: 10-29-2021 End: 10-29-2022 History SDOH Social Connections Living 3 [facility] Start: 10-29-2021 History SDOH Physica l Activity DPW 6 [facility] Start: 12-31-2019 End: 10-29-2022 History SDOH Financial 5 [facility] Start: 12-31-2019 Education 16 [facility] Start: 1955 Sex Assigned At Female [facility] Start: 10-24-2021 End: 11-03-2021 Exposure to SARS-CoV-2 (event) Not sure [facility] Start: 09-04-2015 End: 11-04-2022 Tobacco use and exposure Smokeless tobacco non-user [facility] Start: 10-29-2021 End: 11-01-2023 History of Social function [facility] Start: 10-29-2021 End: 11-01-2023 Social connection and isolation panel [facility] Start: 06-25-2012 How often do you att end caodaism or restorationist services? Patient refused [facility] Do you belong to any clubs or organizations such as caodaism groups, unions, fraternal or athletic groups, or school groups? No [facility] Are you now , , , , never or living with a partner? [facility] How many standard drinks containing alcohol do you have on a typical day? 1 or 2 [facility] How often do you hav e 6 or more drinks on 1 occasion? Never [facility] Do you feel stress - tense, restless, nervous, or anxious, or unable to sleep at night because your mind is troubled all the time - these days [OSQ] Only a little [facility] (I/We) worried wheth er (my/our) food would run out before (I/we) got money to buy more. Never true [facility] Start: 10-21-2020 Gender identity Identifies as female gender (finding) [facility] Start: 04-09-2020 Sexual orientation Heterosexual (fin guille) [facility] How often to you hav e a drink containing alcohol? Monthly or less [facility] Do you feel stress - tense, restless, nervous, or anxious, or unable to sleep at night because your mind is troubled all the time - these days [OSQ] To some extent [facility] Start: 07-12-2023 End: 10-03-2023 Tobacco smoking status NHIS Unknown if ever smoked [facility] Do you feel stress - tense, restless, nervous, or anxious, or unable to sleep at night because your mind is troubled all the time - these days [OSQ] Rather much [facility] NEGATED: Highlighted row [facility] Medical Equipment Procedure Code Equipment Code Equipment Origin al Text Equipment Identifier Dates ORIF, fracture, radius, distal 2.4 CORTICAL SCREW FDA Start: 07-27-2023 ORIF, fracture, radius, distal 2.4LOCKING SCREW FDA Start: 07-27-2023 ORIF, fracture, radius, distal Internal orthopaedic fixation system, plate/screw, non-bioabsorbable, sterile [id number] [id number] FDA Start: 07-27-2023 Goals Date Patient Goal Desired Activity /State Mental Status Date Assessment Result Facility 07-27-2023 Cognitive function Level Of Consciousness Sedated [facility] Work Phone: 07-12-2023 Cognitive function Awake;Alert;A ppropriate;Follow s Commands [facility] Work Phone: Clinical Notes 11-03-2021 to 04-09-2025 Layla Ribera MD - 04/09/2025 2:20 PM Eduardo Rivera MD - 09/29/2024 3:00 PM ESTTelephone Encounter - Vika Avendano LPN - 08/02/2024 3:37 PM EST Note Date & Type Note Facility 04-09-2025 History of Presen t illness Narrative Images from the original note were not included. Dax Duarte is a 69 year old female here for a Medicare wellness visit. Dax Duarte is a 70-year-old female presenting for a Medicare wellness visit. Dax reports a recent mild case of shingles and inquires about the appropriate timing for the shingles vaccine. She also requests an order for a mammogram scheduled for July. Dax is currently taking Fosamax and monitors her blood pressure at home, with readings ranging from 135-139 mmHg systolic and 81-85 mmHg diastolic. She inquires about the threshold for initiating antihypertensive medication. Dax exercises 3-4 times per week to regain muscle tone in her left arm following a wrist fracture and subsequent surgeries. She also engages in walking and recumbent biking on off days. She was previously prescribed Prozac for stress related to her wrist injury but decided not to take it, believing she could manage the stress independently. Recording using [employer] software for draft documentation of the visit was discussed with the patient/authorized territory sales representative; all questions welcomed and answered. Patient/authorized territory sales representative agreed to proceed Medicare Health Risk Assessment General Health Very good Exercise: Minutes/Day 30 min Exercise: Days/Week 4 days Alcohol: Daily Use Monthly or less Alcohol: Drinks/Day 1 or 2 Alcohol: 6 or more drinks Never Feel off balance No Concerns: Teeth/Dentures No Concerns: Sexual function No Troubled by feelings None of the above Frequency: Eating healthy diet Nearly every day ADLs requiring help None of the above Safety precautions in home/vehicle Yes Smoke, vape, chews tobacco No Difficulty hearing No Difficulty seeing No Current Providers Specialists: I have reviewed specialist-related care of the patient in the medical record. Current care team: Patient Care Team: Layla Ribera MD as PCP - General (Family Medicine) Stan Damon APRN.CNP as Insurance Claims Examiner (Family Medicine) Outside specialists seen: Derm Dr. Abdias Manzo, Dentist, and Dr. Woodall-Eye Medical/Family history review Reviewed and updated problem list, medical/surgical/family/social history, medications, and allergies. Opioid use review Opioid Medications (last 90 days) No data to display Anxiety/Depression screening PHQ-2 Score: 0 (Lower risk for depression) REBA-7 Score: 3 (Minimal Anxiety) Recommendation: no further intervention at this time Cognitive screening Mini Cog Score: 4 Cognitive screening reviewed and No further action needed (score 3-5). Functional Observation Was the patient's Timed Up & Go test unsteady or >= 12 seconds? No Advance Care Planning Surrogate decision maker and/or advance care plan documented Measurements BP 148/88 Pulse 100 Resp 18 Ht 157.5 cm (5' 2) Wt 48.6 kg (107 lb 2.3 oz) BMI 19.60 kg/m Vision Screening: Follows with optometry/ophthalmology Assessment/Plan 1. Encounter for Medicare annual wellness exam (Z00.00) Completed Medicare annual wellness visit; patient is exercising regularly and maintaining a healthy weight. - No additional lab work ordered at this time. - Advised patient to continue regular physical activity and healthy diet. 2. Encounter for screening mammogram for malignant neoplasm of breast (Z12.31) Last mammogram was on July 30; patient inquired about next screening. - Order for next screening mammogram placed for after July 30. 3. Personal history of (healed) osteoporosis fracture (Z87.310) Patient has a history of a healed osteoporotic wrist fracture and is currently taking Fosamax. - Continue Fosamax as prescribed. 4. Screening for depression (Z13.31) 5. Encounter for screening examination for other mental health and behavioral disorders (Z13.39) Follow up in 1 year Layla Ribera MD documented in this encounter [facility] 04-09-2025 Note HNO ID: [id number] Author: LAYLA RIBERA MD Service: ? Author Type: Physician Type: Progress Notes Filed: 04/09/2025 14:53 Note Text: Dax Duarte is a 69 year old female here for a Medicare wellness visit. Dax Duarte is a 70-year-old female presenting for a Medicare wellness visit. Dax reports a recent mild case of shingles and inquires about the appropriate timing for the shingles vaccine. She also requests an order for a mammogram scheduled for July. Dax is currently taking Fosamax and monitors her blood pressure at home, with readings ranging from 135-139 mmHg systolic and 81-85 mmHg diastolic. She inquires about the threshold for initiating antihypertensive medication. Dax exercises 3-4 times per week to regain muscle tone in her left arm following a wrist fracture and subsequent surgeries. She also engages in walking and recumbent biking on off days. She was previously prescribed Prozac for stress related to her wrist injury but decided not to take it, believing she could manage the stress independently. Recording using [employer] software for draft documentation of the visit was discussed with the patient/authorized territory sales representative; all questions welcomed and answered. Patient/authorized territory sales representative agreed to proceed Medicare Health Risk Assessment General Health Very good Exercise: Minutes/Day 30 min Exercise: Days/Week 4 days Alcohol: Daily Use Monthly or less Alcohol: Drinks/Day 1 or 2 Alcohol: 6 or more drinks Never Feel off balance No Concerns: Teeth/Dentures No Concerns: Sexual function No Troubled by feelings None of the above Frequency: Eating healthy diet Nearly every day ADLs requiring help None of the above Safety precautions in home/vehicle Yes Smoke, vape, chews tobacco No Difficulty hearing No Difficulty seeing No Current Providers Specialists: I have reviewed specialist-related care of the patient in the medical record. Current care team: Patient Care Team: Layla Ribera MD as PCP - General (Family Medicine) Stan Damon APRN.CNP as Insurance Claims Examiner (Family Medicine) Outside specialists seen: Derm Dr. Abdias Manzo, Dentist, and Dr. Woodall-Eye Medical/Family history review Reviewed and updated problem list, medical/surgical/family/social history, medications, and allergies. Opioid use review Opioid Medications (last 90 days) No data to display Anxiety/Depression screening PHQ-2 Score: 0 (Lower risk for depression) REBA-7 Score: 3 (Minimal Anxiety) Recommendation: no further intervention at this time Cognitive screening Mini Cog Score: 4 Cognitive screening reviewed and No further action needed (score 3-5). Functional Observation Was the patient's Timed Up AND Go test unsteady or >= 12 seconds? No Advance Care Planning Surrogate decision maker and/or advance care plan documented Measurements BP 148/88 Pulse 100 Resp 18 Ht 157.5 cm (5' 2) Wt 48.6 kg (107 lb 2.3 oz) BMI 19.60 kg/m? Vision Screening: Follows with optometry/ophthalmology Assessment/Plan 1. Encounter for Medicare annual wellness exam (Z00.00) Completed Medicare annual wellness visit; patient is exercising regularly and maintaining a healthy weight. - No additional lab work ordered at this time. - Advised patient to continue regular physical activity and healthy diet. 2. Encounter for screening mammogram for malignant neoplasm of breast (Z12.31) Last mammogram was on July 30; patient inquired about next screening. - Order for next screening mammogram placed for after July 30. 3. Personal history of (healed) osteoporosis fracture (Z87.310) Patient has a history of a healed osteoporotic wrist fracture and is currently taking Fosamax. - Continue Fosamax as prescribed. 4. Screening for depression (Z13.31) 5. Encounter for screening examination for other mental health and behavioral disorders (Z13.39) Follow up in 1 year Layla Ribera MD [facility] 09-29-2024 Note HNO ID: [id number] Author: EDUARDO PARIS MD Service: ? Author Type: Physician Type: Progress Notes Filed: 09/29/2024 15:04 Note Text: [facility] Subjective Dax Duarte is a 69 year old female. Patient presents with: Rash: Rash on back x 1 day Patient presents with a rash on the right side she noticed yesterday. It is not pruritic or painful. The rash has spread to her back on the right side. She denies any known exposure in the area. She has tried no treatment. Denies any recent illness or fever. She had chickenpox when younger. She has not had the shingles vaccine. Rash Review of Systems Skin: Positive for rash. Objective BP 144/84 Pulse 98 Temp 36.8 ?C (98.3 ?F) (Tympanic) Resp 18 Wt 50 kg (110 lb 3.7 oz) SpO2 99% BMI 20.16 kg/m? Physical Exam Constitutional: General: She is not in acute distress. Appearance: She is not ill-appearing. Skin: Comments: Clusters of erythematous papules and vesicles in dermatomal distribution on the right thoracolumbar junction and upper right lateral abdomen. Neurological: Mental Status: She is alert. ASSESSMENT/PLAN: 1. Herpes zoster without complication - ICD9: 053.9, ICD10: B02.9 - VALACYCLOVIR 1 GRAM TABLET Shingles discussed. Shingles is a viral rash from prior chicken pox infection. Early antiviral medicine can reduce the length and severity of the shingles outbreak. The rash is contagious until all blisters or sores are dry. Until this avoid contact with women, unvaccinated (usually children under 1), or people with impaired immune systems who would be susceptible to lindsay the chicken pox. The site of the rash may have scaring (color change) after the infection is resolved. Pain, burning, or tingling from the rash may continue for days to several months after the infection-typically a few weeks. There is a vaccine that can reduce the chance of future shingles outbreaks, but for a few years after a shingles episode it probably does not provide benefit. Follow-up with primary care if [id number]-[id number]-[id number] analgesia is not effective for pain relief. Eduardo Paris MD [facility] 09-29-2024 History of Presen t illness Narrative Images from the original note were not included. [facility] Subjective Dax Duarte is a 69 year old female. Patient presents with: Rash: Rash on back x 1 day Patient presents with a rash on the right side she noticed yesterday. It is not pruritic or painful. The rash has spread to her back on the right side. She denies any known exposure in the area. She has tried no treatment. Denies any recent illness or fever. She had chickenpox when younger. She has not had the shingles vaccine. Rash Review of Systems Skin: Positive for rash. Objective BP 144/84 Pulse 98 Temp 36.8 C (98.3 F) (Tympanic) Resp 18 Wt 50 kg (110 lb 3.7 oz) SpO2 99% BMI 20.16 kg/m Physical Exam Constitutional: General: She is not in acute distress. Appearance: She is not ill-appearing. Skin: Comments: Clusters of erythematous papules and vesicles in dermatomal distribution on the right thoracolumbar junction and upper right lateral abdomen. Neurological: Mental Status: She is alert. ASSESSMENT/PLAN: 1. Herpes zoster without complication - ICD9: 053.9, ICD10: B02.9 - VALACYCLOVIR 1 GRAM TABLET Shingles discussed. Shingles is a viral rash from prior chicken pox infection. Early antiviral medicine can reduce the length and severity of the shingles outbreak. The rash is contagious until all blisters or sores are dry. Until this avoid contact with women, unvaccinated (usually children under 1), or people with impaired immune systems who would be susceptible to lindsay the chicken pox. The site of the rash may have scaring (color change) after the infection is resolved. Pain, burning, or tingling from the rash may continue for days to several months after the infection-typically a few weeks. There is a vaccine that can reduce the chance of future shingles outbreaks, but for a few years after a shingles episode it probably does not provide benefit. Follow-up with primary care if ebqi-bfz-iewekww analgesia is not effective for pain relief. Eduardo Paris MD documented in this encounter [facility] 08-02-2024 Telephone encounter Note Patient notified of results, verbalizes understanding of instructions. Vika Avendano LPN [facility] 08-02-2024 Miscellaneous Notes Patient notified of results, verbalizes understanding of instructions. Vika Avendano LPN Please notify patient that her bone density test does show osteoporosis, soI would recommend starting on Fosamax once weekly as ordered, in order to reduce her risk of further fractures Layla Ribera MD documented in this encounter [facility] 08-02-2024 Telephone encounter Note Please notify patient that her bone density test does show osteoporosis, soI would recommend starting on Fosamax once weekly as ordered, in order to reduce her risk of further fractures Layla Ribera MD [facility] 07-30-2024 History of Presen t illness Narrative Radiology Service Progress Note PATIENT NAME: Dax Duarte DATE OF SERVICE: July 30, 2024 TIME: 8:29 AM PATIENT IDENTITY VERIFICATION COMPLETED USING TWO (2) IDENTIFIERS: Name and Date of confirmed by patient verbally. FALL SCREENING: Has the patient had 2 falls in the last year or 1 fall with injury or currently using an Ambulatory Assistive Device (Walker, Cane, Wheelchair, Crutches, etc.)? No PATIENT GENDER DATA: Female. status: : No status: NO. PATIENT RELEVANT IMPLANT DATA REVIEWED: Not Applicable PATIENT PRESENTS WITH AN IMPLANTABLE OR ATTACHED ROAD PATCHER: No RADIOLOGY DEPARTMENT: Mammography PERIPHERAL IV DATA: Not applicable SIGNED BY: Amparo Napoles July 30, 2024 8:29 AM documented in this encounter [facility] 07-30-2024 Note HNO ID: [id number] Author: MERLIN HARVEY Mammo Tech Service: ? Author Type: Mass Communications Professor Type: Progress Notes Filed: 07/30/2024 08:29 Note Text: Radiology Service Progress Note PATIENT NAME: Dax Duarte DATE OF SERVICE: July 30, 2024 TIME: 8:29 AM PATIENT IDENTITY VERIFICATION COMPLETED USING TWO (2) IDENTIFIERS: Name and Date of confirmed by patient verbally. FALL SCREENING: Has the patient had 2 falls in the last year or 1 fall with injury or currently using an Ambulatory Assistive Device (Walker, Cane, Wheelchair, Crutches, etc.)? No PATIENT GENDER DATA: Female. status: : No status: NO. PATIENT RELEVANT IMPLANT DATA REVIEWED: Not Applicable PATIENT PRESENTS WITH AN IMPLANTABLE OR ATTACHED ROAD PATCHER: No RADIOLOGY DEPARTMENT: Mammography PERIPHERAL IV DATA: Not applicable SIGNED BY: Amparo Napoles July 30, 2024 8:29 AM [facility] 07-30-2024 History of Presen t illness Narrative Radiology Service Progress Note PATIENT NAME: Dax Duarte DATE OF SERVICE: July 30, 2024 TIME: 7:50 AM PATIENT IDENTITY VERIFICATION COMPLETED USING TWO (2) IDENTIFIERS: Name and Date of confirmed by patient verbally. FALL SCREENING: Has the patient had 2 falls in the last year or 1 fall with injury or currently using an Ambulatory Assistive Device (Walker, Cane, Wheelchair, Crutches, etc.)? No PATIENT GENDER DATA: Female. status: : No status: NO. PATIENT RELEVANT IMPLANT DATA REVIEWED: Not Applicable PATIENT PRESENTS WITH AN IMPLANTABLE OR ATTACHED ROAD PATCHER: No RADIOLOGY DEPARTMENT: Bone Density PERIPHERAL IV DATA: Not applicable SIGNED BY: RT Meredith(R) July 30, 2024 7:50 AM documented in this encounter [facility] 07-30-2024 Note HNO ID: [id number] Author: BRANT PETTY RT(R) Service: ? Author Type: Technologist Type: Progress Notes Filed: 07/30/2024 07:59 Note Text: Radiology Service Progress Note PATIENT NAME: Dax Duarte DATE OF SERVICE: July 30, 2024 TIME: 7:50 AM PATIENT IDENTITY VERIFICATION COMPLETED USING TWO (2) IDENTIFIERS: Name and Date of confirmed by patient verbally. FALL SCREENING: Has the patient had 2 falls in the last year or 1 fall with injury or currently using an Ambulatory Assistive Device (Walker, Cane, Wheelchair, Crutches, etc.)? No PATIENT GENDER DATA: Female. status: : No status: NO. PATIENT RELEVANT IMPLANT DATA REVIEWED: Not Applicable PATIENT PRESENTS WITH AN IMPLANTABLE OR ATTACHED ROAD PATCHER: No RADIOLOGY DEPARTMENT: Bone Density PERIPHERAL IV DATA: Not applicable SIGNED BY: RT Meredith(Cyn) July 30, 2024 7:50 AM [facility] 04-12-2024 Note HNO ID: [id number] Author: ROLANDO VIERA, ? Service: ? Author Type: Patient Global Sourcing Manager Type: Progress Notes Filed: 04/12/2024 10:00 Note Text: POPULATION HEALTH NAVIGATION OUTREACH Action/FYI Scheduled patient DXA 05-24-2024 Reason for Outreach Care Gap/HCC or Scheduling Wellness Visits Care Gaps due: N/A Patient Contacted: Spoke to patient/parent/or legal guardian Patient identified by name and : Yes Care Gap/HCC/Scheduling Wellness actions taken: Patient scheduled/pended orders: Specialty Appointment 05/24/2024 in RADIO BONE DENSITY [facility] with BONE DENSITY [facility] - Screening for osteoporosis [Z13.820]; Other closed fracture of first metacarpal bone of left hand, unspecified portion of metacarpal, initial encounter [S62.292A], ok to schedule to access hospital [facility] measure 06/07/2024 in RADIO MAMMO [facility] with SCREEN MAMMO [facility] - JUANPABLO SCREENING, ORDER IN PEND Navigation Signature: Rolando Viera Population Health Navigator April 12, 2024 9:59 AM [facility] 04-12-2024 History of Presen t illness Narrative POPULATION HEALTH NAVIGATION OUTREACH Action/FYI Scheduled patient DXA 05-24-2024 Reason for Outreach Care Gap/HCC or Scheduling Wellness Visits Care Gaps due: N/A Patient Contacted: Spoke to patient/parent/or legal guardian Patient identified by name and : Yes Care Gap/HCC/Scheduling Wellness actions taken: Patient scheduled/pended orders: Specialty Appointment 05/24/2024 in RADIO BONE DENSITY [facility] with BONE DENSITY [facility] - Screening for osteoporosis [Z13.820]; Other closed fracture of first metacarpal bone of left hand, unspecified portion of metacarpal, initial encounter [S62.292A], ok to schedule to hedis measure 06/07/2024 in RADIO MAMMO [facility] with SCREEN MAMMO [facility] - J[place] SCREENING, ORDER IN PEND Navigation Signature: Rolando Viera Population Health Navigator April 12, 2024 9:59 AM Noted. Stan Damon APRN.WELL LOGGING CAPTAIN MUD ANALYSIS Ordered per protocol. Patient appears to have declined at prior visit with PCP. Please discuss with patient. CB POPULATION HEALTH NAVIGATION OUTREACH Action/FYI Hedis measure Reason for Outreach Care Gap/HCC or Scheduling Wellness Visits Care Gaps due: N/A Patient Contacted: Navigation Signature: Rolando Viera Population Health Navigator April 12, 2024 7:12 AM documented in this encounter [facility] 04-12-2024 Note HNO ID: [id number] Author: STAN DAMON APRN.WELL LOGGING CAPTAIN MUD ANALYSIS Service: ? Author Type: Nurse Practitioner Type: Progress Notes Filed: 04/12/2024 09:48 Note Text: Noted. Stan Damon APRN.CNP [facility] 04-12-2024 Note HNO ID: [id number] Author: ENZO RIOS MD Service: ? Author Type: Physician Type: Progress Notes Filed: 04/12/2024 09:48 Note Text: Ordered per protocol. Patient appears to have declined at prior visit with PCP. Please discuss with patient. CB [facility] 04-12-2024 Note HNO ID: [id number] Author: ROLANDO VIERA, ? Service: ? Author Type: Patient Global Sourcing Manager Type: Progress Notes Filed: 04/12/2024 09:48 Note Text: POPULATION HEALTH NAVIGATION OUTREACH Action/FYI Hedis measure Reason for Outreach Care Gap/HCC or Scheduling Wellness Visits Care Gaps due: N/A Patient Contacted: Navigation Signature: Rolando Viera Population Health Navigator April 12, 2024 7:12 AM [facility] 04-12-2024 Note Patient Outreach (NE TNAV) DAX DUARTE ([id number]) 1955 F Date Time Provider Department 04/12/24 ROLANDO VIERA NETEDDIEV During your visit today, we recorded the following information about you: Rolando Viera 04/12/2024 9:48 AM Signed POPULATION HEALTH NAVIGATION OUTREACH Action/FYI Hedis measure Reason for Outreach Care Gap/HCC or Scheduling Wellness Visits Care Gaps due: N/A Patient Contacted: Navigation Signature: Rolando Viera Population Health Navigator April 12, 2024 7:12 AM Enzo Rios MD 04/12/2024 9:48 AM Signed Ordered per protocol. Patient appears to have declined at prior visit with PCP. Please discuss with patient. Stan Moon APRN.CNP 04/12/2024 9:48 AM Signed Noted. THOR Brooke Nancy 04/12/2024 10:00 AM Signed POPULATION HEALTH NAVIGATION OUTREACH Action/FYI Scheduled patient DXA 05-24-2024 Reason for Outreach Care Gap/HCC or Scheduling Wellness Visits Care Gaps due: N/A Patient Contacted: Spoke to patient/parent/or legal guardian Patient identified by name and : Yes Care Gap/HCC/Scheduling Wellness actions taken: Patient scheduled/pended orders: Specialty Appointment 05/24/2024 in RADIO BONE DENSITY [facility] with BONE DENSITY [facility] - Screening for osteoporosis [Z13.820]; Other closed fracture of first metacarpal bone of left hand, unspecified portion of metacarpal, initial encounter [S62.292A], ok to schedule to hedis measure 06/07/2024 in RADIO MAMMO [facility] with SCREEN MAMMO [facility] - JUANP[place]LO SCREENING, ORDER IN PEND Navigation Signature: Rolando iVera [facility] Navigator April 12, 2024 9:59 AM Allergies As of Date: 04/12/2024 Noted Allergy Reaction PENICILLINS 08/03/2005 SULFA (SULFONAMIDE ANTIBIOTICS) 08/03/2005 Date Reviewed: 11/08/2023 Reviewed by: Fabiola Lyle MA - Fully Assessed Reason for Visit: Population Health Navigation Outreach [3910] Cmt: omw Primary Visit Diagnosis:Screening for osteoporosis [Z13.820] Other Visit Diagnosis:Closed fracture of left wrist with routine healing, subsequent encounter [S62.102D] Order(s):DXA-AXIAL SKELETON [[id number]] Order #: [id number] FUTURE BD DXA TRABECULAR BONE SCORE (TBS) [[id number]] Order #: [id number] FUTURE Prescriptions as of 04/12/2024 - FLUoxetine (PROZAC) 10 mg capsule Take 1 capsule by mouth once daily. - Cholecalciferol, Vitamin D3, 25 mcg (1,000 unit) cap Take 1 capsule by mouth once daily. - C,E,zinc,copper [id number] (OCUVITE ADULT 50 PLUS) 250-5-1 mg cap Take 1 capsule by mouth once daily. - multivitamin tablet Take 1 tablet by mouth once daily. Meds Comments as of 11/08/2023: Multivitamin. [facility]. Uses Tylenol and Advil Problem List As Of Date 04/12/2024 Noted Resolved CHEST PAIN UNSPECIFIED [R07.9] 08/24/2006 REFLUX ESOPHAGITIS [K21.00] 08/24/2006 BONE AND CARTILAGE DIS NOS [M89.9, M94.9] 08/24/2006 Osteoporosis [M81.0] Osteoarthritis [M19.90] Screening for malignant neoplasm of cervix [Z12*12/27/2011 Encounter Status:Closed by STAN DAMON on 04/12/24 [facility] 12-09-2023 History of Presen t illness Narrative POPULATION HEALTH NAVIGATION OUTREACH Action/FYI Orders removed since provider did not sign within 7 days and encounter closed. Please have the office reach out to the patient to coordinate any further testing/appointment needs. Navigation Signature: Rolando Viera Population Health Navigator December 09, 2023 12:37 PM POPULATION HEALTH NAVIGATION OUTREACH Action/FYI REQUEST: We are bringing this patient to your attention to request your assessment and consideration for either a Bone Density (BMD) order and/or a prescription for a medication to treat or prevent osteoporosis, if appropriate Reason for Outreach Care Gap/HCC or Scheduling Wellness Visits Care Gaps due: Specialty Scheduling Patient Contacted: Unable or unnecessary to reach patient: Navigation Signature: Rolando Viera Population Health Navigator November 28, 2023 9:30 AM documented in this encounter [facility] 11-29-2023 Discharge summary Note Date/Time November 29, 2023 4:01pm [facility] Occupational Therapy [facility] [facility] [place] [address] / REHABILITATION SERVICES DISCHARGE SUMMARY MR#: [id number] Acct: [id number] Name: DAX DUARTE Rep #: [id number] : 1955 68 From: Laury VALENZUELA/Nette, CHT Referring Dr.: Dr. Oneil Marks MD Status: REG RCR Eval Date: Discharge Date: Discharge Summary D/C Summary: It has been my pleasure to treat DAX DUARTE under orders from Dr. Oneil Marks MD, for the diagnosis of left distal radius fx for a total of 4 visit(s). Please see the following information for a summary of their discharge status. Overall Improvement % Improvement: 60 Objective Objective/Function: left forearm pronation 50* right 80* left forearm supination 45* right 80* Left wrist ROM 20/20 right 65/70 pt demo the ability to from a straight fist- composite fist limited by DIP flex. left vice investigator strength 25# right is 40# left lateral pinch 10# right 16# left tripod pinch 10# right 12# pts states she has been LEXUS with her ADls and IADLs at this time as her motion limits full forearm sup/pron as well as wrist ext limits her daily tasks. pt will cont with her HEP. Advised pt if she felt she did not make gains in next3 months with her ROM and strength she could return and could adj. her HEP. Pt demo understanding and agree to d/c at this time due to insurance limits. Goals Patient Goals: Regain Mobility, Regain Strength, Improve Fine Motor Skills, Use Hand/Wrist/Arm Normally Again, Increase ROM, Be More Independent in ADLS and Resume Former Household Responsibilities (Cooking,Cleaning,Yard, etc.) Goal:: Pt will demo the ability to form a composite fist to hold and receive 10 coins without dropping coins/ and coin manipulation/money mtg. tasks and ind. With manipulating fasteners for dressing by D/C. Goal met with zippers/buttons/ tie shoes/ 8/10 coins (progress) Goal:: Pt will demo understanding of joint protection and ergonomics when performing BADLs and IADLs by d/c (goal met) Pt will demo understanding of adaptive Equipment use to decrease stress on joints to allow pt to perform BADSL and IADLS at LEXUS level. (goal met) Goal:100% adherence to protocol: Yes Goal:Daily scar massage when approriate: Yes Goal Progress: Progressing Goal:ROM equal to unaffected hand: Yes Goal Progress: Progressing Goal:Squilgeer/Pinch strength at least 75% of unaffected hand: Yes Goal Progress: Progressing Goal:No pain with affected hand use: Yes Goal:PIP Circumferences equal to unaffected hand: Yes Goal:Full use of affected hand in daily activities including work: Yes Goal Progress: Progressing Goal:Decrease scar hypersensitivity: Yes Plan Plan: D/C with HEP D/C Information Discharge Comments: pt has been seen in OT for left distal radius fx with ORIF of distal radius. pt has had complications of scar adhesions limiting pts ROM- following ex she can gain about 10*. Pt also demo with a left shoulder irritation (pain) limiting pts full functional ROM of left shoulder. ( therapisthas given shoulder AAROM and PROM HEP ) pt demo understanding of PROM forearm supination/pronation and wrist flex/ext. therapist ed. pt on cont. with stretching and return to use of left UE as able. pt is strengthening with t-band and putty as tolerated pt demo understanding andagrees to D/c. with HEP d/c sentence: If there are questions or concerns regarding this patient's occupational therapy, please fell free to call me at [phone]. Thank you for the referral of this patient. Sincerely, Laury Fox OTR/L, CHT <Electronically signed by Laury Fox OTR/Nette, CHT> 11/29/23 1601 CC: Dr. Layla Ribera MD; Dr. Oneil Marks MD ~ MK Signed [facility] Work Phone: 1(210) 240-447804-16-2024 History of Present illness Narrative* Layla Ribera MD - 11/08/2023 8:00 AM EDT Images from the original note were not included. Dax Duarte is a 68 year old female here for a Medicare wellness visit. Pt here today with her for routine Medicare Wellness. Tends to get anxious during visits. Medicare Health Risk Assessment General Health Very good Exercise: Minutes/Day 20 min Exercise: Days/Week 1 day Alcohol: Daily Use Never Alcohol: Drinks/Day Patient does not drink Alcohol: 6 or more drinks Never Feel off balance No Concerns: Teeth/Dentures No Concerns: Sexual function No Troubled by feelings Anxious Frequency: Eating healthy diet More than half the days ADLs requiring help None of the above Safety precautions in home/vehicle Yes Smoke, vape, chews tobacco No Difficulty hearing No Difficulty seeing No Current Providers Eye Doctor - Dr. Pugh Dentist - Dr. Ian Riggs Orthopedist - Dr. Oneil Marks, [facility] - Dr. Abdias Manzo Medical/Family history review Reviewed and updated problem list, medical/surgical/family/social history, medications, and allergies. Opioid use review Opioid Medications (last 90 days) No data to display Depression screening Depression Screening PHQ-2 Score 11/04/2022 0 Depression screening tool completed and reviewed. Based on score and interview, patient is not at risk for depression. Screening tool discussed with patient, and I recommended no further interventionat this time. Cognitive screening Cognitive screening reviewed and no further action needed (score 3-5) Functional Observation Was the patient's Timed Up & Go test unsteady or ? 12 seconds? No Advance Care Planning Surrogate decision maker and/or advance care plan documented Measurements BP 138/84 Pulse 96 Resp 18 Ht 5' 2 (1.58m) Wt 98 lb 11.2 oz (44.8kg) BMI 18.05 kg/(m^2). Vision Screening: Right: 20/13 Left: 20/ 15 Both: 20/13, with glasses. Color screening normal. Physical Exam Constitutional: Appearance: Normal appearance. Cardiovascular: Rate and Rhythm: Normal rate and regular rhythm. Pulses: Normal pulses. Heart sounds: Normal heart sounds. No murmur heard. No gallop. Pulmonary: Effort: Pulmonary effort is normal. No respiratory distress. Breath sounds: Normal breath sounds. No wheezing or rales. Neurological: Mental Status: She is alert. Psychiatric: Mood and Affect: Mood normal. Assessment/Plan Medicare annual wellness visit, subsequent (Z00.00) - Counseled on healthy diet and regular exercise - Fall avoidance information provided - Personalized prevention plan provided Layla Ribera MD Chief Complaint Anxiety HPI Dax Duarte is a 68 year old female who presents here today for anxety, in addition to Medicare Wellness Pt reports weight loss since she fell on ice/snow on there back porch back in June 2023. She had a severe fracture that required surgery in early July 2023. She had to have a plate placed due to the type of fracture she had. She was not able to do anything and required a lot of help from herspouse. Reports she was very independent prior to this, but when she was going through this she hadsome depression and increased bouts of anxiety. Did discuss with her spouse may needing medication due to how severe this impacted her life. She is improved now, but notes since surgery she does realize how much she has to compensate due to her wrist. Spouse feels she may need medication to help her. She's lost weight because she just doesn't feel like eating. She doesn't do well with medications, tends to get side effects. Uses Tylenol and Advil for pain but weaned down off of this. Feels thatthey were never really told how severe the fracture was from there prior Orthopaedist at [facility] and will be following up with someone for a second opinion. Pt states that she's actually very fortunate due to the nature of her fall and she's ericka she didn't fx her hip or hit her head. She knows Insurance wants her to have BMD done. She was previously onmedication and it tore up her esophagus. At this time she doesn't want to add any extra concerns and handle one thing at a time. Would like to hold off on BMD testing. Past medical history, appointments, medications, allergies reviewed. Previous Medical History PAST MEDICAL HISTORY Diagnosis Date GERD (gastroesophageal reflux disease) Lactose intolerance Osteoarthritis fingers Osteoporosis bisphosphonate 4943-6463, stopped due to heartburn Previous Surgical History PAST SURGICAL HISTORY Procedure Laterality Date NONE PAST SURGICAL HISTORY OF Left 07/27/2023 Left wrist surgery, with plate placed due to fx wrist Family History FAMILY HISTORY Problem Relation Age of Onset Arthritis Mother Rheumatoid Arthritis Cancer Mother Multiple myeloma Hypertension Father Patient Allergies ALLERGIES Allergen Reactions Penicillins Sulfa (Sulfonamide * Current Medications Current Outpatient Medications on File Prior to Visit Medication Sig Cholecalciferol, Vitamin D3, 25 mcg (1,000 unit) cap Take 1 capsule by mouth once daily. C,E,zinc,copper [id number] (OCUVITE ADULT 50 PLUS) 250-5-1 mg cap Take 1 capsule by mouth once daily. multivitamin tablet Take 1 tablet by mouth once daily. No current facility-administered medications on file prior to visit. Social History Social History Tobacco Use Smoking status: Never Smokeless tobacco: Never Vaping Use Vaping Use: Never used Substance Use Topics Alcohol use: No Drug use: No EXAM: BP 138/84 (BP Site: Left Arm, BP Position: Sitting, BP Cuff Size: Regular Adult) Pulse 96 Resp 18 Ht 157.5 cm (5' 2) Wt 44.8 kg (98 lb 11.2 oz) BMI 18.05 kg/m General Appearance: Well appearing, alert, in no acute distress, well-hydrated, well nourished.. Lungs: Lungs clear to auscultation. No wheezing, rhonchi, rales.. Heart: RRR without murmur, gallop, or rubs. No ectopy. Decreased ROM left wrist. Health Maintenance List DTaP,Tdap,Td Vaccine(2 - Td or Tdap) due on 02/01/2018 Bone Density Screening due on 2018 Advance Directive Discussion due on 07/25/2023 Colorectal Cancer Screening due on 11/06/2023 RSV Vaccine(1 - 1-dose 60+ series) due on 11/07/2024 Shingrix Vaccine(1 of 2) due on 11/07/2024 Influenza Vaccine(Season Ended) due on 03/25/2024 Mammogram Screening due on 06/06/2024 Diabetes Screening due on 11/04/2024 Lipid Screening due on 11/04/2026 Behavioral Health Screening Completed Hepatitis C Screening Completed Covid-19 Vaccine Completed Pneumococcal Vaccine: 65+ Discontinued Data reviewed None ASSESSMENT/PLAN: 1. . REBA (generalized anxiety disorder) - ICD9: 300.02, ICD10: F41.1 Start Prozac 10 mg daily - FLUOXETINE 10 MG CAPSULE 3. H/O left wrist surgery - ICD9: V45.89, ICD10: Z98.890 Follow with Hand Surgeon Declines DEXA at this time 4. Screening for colon cancer - ICD9: V76.51, ICD10: Z12.11 - COLOGUARD I agree with the Chief Complaint, ROS, and Past Histories independently gathered by the clinical client support representative and the remaining scribed note accurately describes my personal service to the patient. Follow up in 1 month Medical Decision Making: Problems: Moderate: 1+ chronic illnesses with change Risk: Moderate: Drug management Medical Decision Making Level: 4 - Moderate Layla Ribera MD The documentation for this note was completed by Fabiola Lyle MA acting as scribe for Layla Ribera MD. November 08, 2023 8:38 AM. Fabiola Lyle MA [facility] History of Present illness Narrative* Rolando Viera - 10/25/2023 7:33 AM EDT POPULATION HEALTH NAVIGATION OUTREACH Action/FYI Orders removed since provider did not sign within 7 days and encounter closed. Please have the office reach out to the patient to coordinate any further testing/appointment needs. Navigation Signature: Rolando Viera Population Health Navigator October 25, 2023 7:33 AM * Rolando Viera - 10/17/2023 10:04 AM EDT POPULATION HEALTH NAVIGATION OUTREACH Action/FYI We are bringing this patient to your attention to request your assessment and consideration for either a Bone Density (BMD) order and/or a prescription for a medication to treat or prevent osteoporosis, if appropriate. Reason for Outreach Care Gap/HCC or Scheduling Wellness Visits Care Gaps due: Specialty Scheduling Navigation Signature: Rolando Viera October 17, 2023 10:05 AM documented [facility] History of Present illness Narrative* Joelle Freeman RN - 09/14/2023 11:05 AM EST ACM LINDSAY RN FYI: Reason for review or outreach: Chart Review Chart Review Details: Lindsay Priority Chart review completed for the HEDIS measure: Osteoporosis Management in Women Who Had a Fracture (OMW) Summary / Findings: No order for Dexa Scan noted. No exclusionary criteria clearly identified REQUEST: We are bringing this patient to your attention to request your assessment and consideration for either a Bone Density (BMD) order and/or a prescription for a medication to treat or prevent osteoporosis, if appropriate. The HEDIS Measure, Osteoporosis Management in Women Who Had a Fracture (OMW) recommends assessing female patients 67 to 85 years of age who suffered a fracture and had either a bone mineral density (BMD) test or prescription for a drug to treat osteoporosis in the six months after the fracture. Patient identified by name and date of . Patient Attributed To: Shawna Payer: Santino CLEMENTE Reason for review or outreach: Chart Review Chart Review Details: Lindsay Priority Summary / Findings: Fracture Date: 07/12/2023 Last BMD Result: 09/08/2011 Action Taken: Encounter routed to provider Contact made with patient: No, Chart review only. Signature: Joelle Freeman RN documented [facility] Discharge summary Author Oneil Marks [facility] July 27, 2023 10:57am Note Date/Time July 27, 2023 10 :55am [facility] Medical Records Department [address] [place] [id number] Instructions for Home/Discharge Instructions 07/27/23 1054 MR#: [id number] Acct: [id number] Name: DAX DUARTE Rep #:[id number] : 1955 68 From: Oneil Marks MD PCP: Dr. Layla Ribera MD Status:[facility] Discharge Instructions Diet Discharge Diet: No restrictions Activity Discharge Activity: May Not Drive Ice area for (Minutes): 10 Weight Bearing Status: No weight bearing Lifting Restrictions: ok for finger and elbow ROM, no lifting over 1 pound Keep extremity elevated above heart level: Operative Extremity Dressing / Incision Call your doctor if your incision/area has: Continuous Slow Oozing, Sudden Increased Bleeding, Increased Pain/ Swelling, Increased Redness, Foul Smelling Discharge and Swelling at the incision site Remove Dressing in: leave in place till F/U Cleanse incision/area with: Do not get Incision Wet Follow Up Care Please Follow Up With: Oneil Marks MD When: 2 days Test Results: Test results from this visit will be discussed in further detail at your follow- up appointment, if applicable. Discharge Plan Admission Attending Provider: Oneil Marks Primary Care Provider: Layla Ribera Instructions Patient Instructions: Distal Radius Fx Discharge Orders/Prescriptions Prescriptions: New oxycodone-acetaminophen [Percocet] 5-325 mg tablet 1 tab PO Q4H MDD 6 PRN (Reason: pain) 5 Days Qty: 30 0RF No Action acetaminophen [Tylenol Arthritis Pain] 650 mg tablet extended release 650 mg PO Q8H ibuprofen 200 mg tablet 200 mg PO Q6H PRN (Reason: pain) Referrals / Follow Up: Layla Ribera MD [Primary Care Provider] - Oneil Marks MD [Med Staff - Active Staff] - Disposition Disposition (needs filled in before D/C Order can be placed): Home, Self Care 07/27/23 1057<Electronically signed by Oneil Marks MD>Oneil Marks MD CC: Dr. Layla Ribera MD ~ Signed [facility] Work Phone: 1(783) 537-125001-03-2024 Procedure [facility] 07-27-2023 History and physical note Author Oneil Marks [facility] July 27, 2023 8:25am Note Date/Time July 27, 2023 8: 17am [facility] Medical Records Department [address] [place] [address] History & Physical Exam 07/27/23 0816 MR#: [id number] Acct: [id number] Name: DAX DUARTE Rep #:[id number] : 1955 68 From: Oneil Marks MD PCP: Dr. Layla Ribera MD Status:[facility] Location: [place] [address] HPI - General HPI Narrative DAX DUARTE, is a 68 F who presents for left distal radius open reduction internal fixation. No changes to history and physical exam. Patient wished to proceed. Wrist marked. Risks alternatives benefits as well as postoperative instructions and narcotic counseling. No further questions or concerns. MR#: [id number] Acct: [id number] Name: DAX DUARTE Rep #: [id number] : 1955 Provider: Dr. Oneil Marks MD Age/Sex: 68/F [place] [facility] [place] Status: Signed Intake Vital Signs 07/12/2309:28 07/15/2309:15 Height 5 ft 1 in 5 ft 1 in Weight: 108 lb BMI 20.4 Intake Visit Reasons: LEFT WRIST Chief Complaint: left wrist Is patient in pain?: Yes (left wrist) Pain scale (1-10): 4 Allergies Penicillins Allergy (Intermediate, Verified 07/15/23 09:14) HivesSulfa (Sulfonamide Antibiotics) Allergy (Intermediate, Verified 07/15/23 09:14) Hivesmeperidine [From Demerol] Adverse Reaction (Mild, Verified 07/15/23 09:14) Other Medications acetaminophen 650 mg tablet,extended release (Tylenol Arthritis Pain) 650 mg PO Q8H 07/15/23 [History Confirmed 07/15/23] ibuprofen 200 mg tablet 200 mg PO Q6H PRN 07/15/23 [History Confirmed 07/15/23] PFSH Social History Smoking Status: Never smoker HPI LEFT WRIST Details: This documentation accurately reflects the service provided and the decisions made by me, Dr. Oneil Marks MD 07/15/23 0806. Part of today?s visit was documented by [ ], acting as scribe. DAX DUARTE is a 68 year old F here today for L DRF. Was in ED 2 days ago . FOOSH injury. RHD. slipped on black ice. per ED notes Patient presents with left wrist pain that began this morning. Patient states he slipped and fell backwards. Patient states she tried to catchherself with her left hand. Patient describes her pain as aching. Patient states it is worse with movement such as flexion. Patient states it is better with rest. Patient denies any paresthesias or weakness. Patient denies any head injury or loss of consciousness. Patient denies any other injuries. no blood thinners, bordeline HTN, here w . Ortho Exam General General: Yes no acute distress Neurologic: Yes alert and Yes oriented x3 Psychologic: Yes reasonable and appropriate Right Wrist/Hand Skin/Wound: Yes Swelling and Yes Ecchymosis Left Wrist/Hand Skin/Wound: Yes CDI, Yes Swelling, Yes Ecchymosis, Yes nail intact, Yes capillary refill normal and No erythema Left Wrist: Yes TTP Fracture site Motor: EPL: 4, FDP-2: 4, 1st Dorsal Interosseous: 4 and APB: 4 Sensation: Radial: I, Ulnar: I and Median: I WRIST: closed, strong radial pulse, dinner fork deformity Supplemental Info [facility] Imaging Services [address] [place] [address] Wrist min 3 Views MR#: [id number] Acct: [id number] Name: DAX DUARTE Rep #: [id number] : 1955 F 68 From: Rosendo Marino MD PCP: Dr. Layla Ribera MD Status: PRE ER Study: Wrist min 3 Views Date of Exam: 07/12/23 Exam# [id number] Ordering Dr: Abhishek Gresham DO STUDY: X-RAY - LEFT WRIST REASON FOR EXAM: Female, 68 years old. Wrist pain following a fall. TECHNIQUE: 3 view(s) of the wrist were obtained. COMPARISON: None. FINDINGS: There is a comminuted fracture of the distal radial metaphysis with extension to the articular surface. There is evidence of dorsal facing of the radial carpal joint. Avulsion fracture of the ulnar styloid. Normal radiocarpal articulation. Normal distal radioulnar articulation. Normal carpal bones. Normal carpal articulations. Normal carpometacarpal articulation of the thumb. Normal second through fifth carpometacarpal articulations. Normal visualized metacarpal bones. Soft tissue swelling. RAD/Wrist min 3 Views IMPRESSION: Comminuted fracture of the distal radial metaphysis with extension to the articular surface. There is evidence of dorsal facing. Avulsion fracture of the ulnar styloid. Soft tissue swelling. Electronically Signed: Rosendo Marino MD at 10:13 EST , [facility] Imaging Services [address] [place] [address] Wrist 2 Views MR#: [id number] Acct: [id number] Name: DAX DUARTE Rep #: [id number] : 1955 F 68 From: Rosendo Marino MD PCP: Dr. Layla Ribera MD Status: REG ER Study: Wrist 2 Views Date of Exam: 07/12/23 Exam# [id number] Ordering Dr: Abhishek Gresham DO STUDY: X-RAY - LEFT WRIST REASON FOR EXAM: Female, 68 years old. Distal radius fracture -- Postreduction TECHNIQUE: 2 view(s) of the wrist were obtained. COMPARISON: Comparison is made with prior study done earlier in day. FINDINGS: Post reduction images. Residual dorsal facing is seen. Normal radiocarpal articulation. Normal distal radioulnar articulation. Normal carpal bones. Normal carpal articulations. Normal carpometacarpal articulation of the thumb. Normal second through fifth carpometacarpal articulations. Normal visualized metacarpal bones. Soft tissue swelling. RAD/Wrist 2 Views IMPRESSION: Satisfactory reduction with residual dorsal facing. Electronically Signed: Rosendo Marino MD at 12:30 EST Reading Location ID and State: [address] [place] [address] , Service support , agree 30 degrees dorsal angulation and intra articular. Coding Level of Care Code Off vis,new,level 3 Diagnoses Fracture of left distal radius S52.502A Assessment and Plan Assessment and Plan (1) Fracture of left distal radius: Status: Acute Plan: 68 F with a left distal radius intra-articular fracture with residual dorsal angulation and quite a bit of initial angulation not fully corrected on the attempted closed reduction. The options here would be open reduction internal fixation versus nonoperative treatment in a cast. Cast treatment more likely ciro malunion and stiffness that being said surgery does have risks as well. We discussed the pros and cons risks and benefits of each method of treatment. Patient understands wants to go ahead with left distal radius open reduction internal fixation. I will try to get the case on within the next 2 weeks. For now into wrist splint, recommend ice and elevation, pain control oral medications. Patient asks for short course of oral narcotics did appropriate counseling on asked and will send them to the pharmacy. Pros and cons risks and benefits were discussed with the patient including but not limited to infection, pain, stiffness, bleeding, damage to surrounding structures, neurovascular injury, recurrence or retear, failure or wear of hardware or fixation, instability, fracture, deep vein thrombosis and pulmonary embolism, anesthetic risks, , patient dissatisfaction, need for further surgery and other risks. Patient understood and wished to proceed with surgery,and signed the informed consent documentation. [facility] Medical History (Updated 07/20/23 @ 13:08 by Misty Chung) Arthritis Migraine headache Non-smoker Post-menopausal Thyroid disease Wears glasses Home Medications acetaminophen 650 mg tablet,extended release (Tylenol Arthritis Pain) 650 mg PO Q8H 07/15/23 [History Last Taken Unknown] ibuprofen 200 mg tablet 200 mg PO Q6H PRN pain 07/15/23 [History Last Taken Unknown] Allergy/AdvReac Type Severity Reaction Status Date / Time Penicillins Allergy Intermediate Hives Verified 07/27/23 07:52 Sulfa (Sulfonamide Allergy Intermediate Hives Verified 07/27/23 07:52 Antibiotics) meperidine [From Demerol] AdvReac Mild Other Verified 07/27/23 07:52 Surgical History (Updated 07/20/23 @ 13:08 by Misty Chung) Hx of colonoscopy Social History Smoking Status: Never smoker Vital Signs Vital Signs Vital Signs: 07/27/23 07:52 Temperature 98.3 F Temperature Source Temporal Pulse Rate 100 Respiratory Rate 18 Blood Pressure 161/90 H Blood Pressure Mean 113 Blood Pressure Source Monitor Blood Pressure Position Sitting Blood Pressure Location Right Arm Pulse Ox 18 Oxygen Delivery Method Room Air Weight Weight: 103 lb Body Mass Index (BMI) 19.4 07/27/23 0825 <Electronically signed by Oneil Marks MD> Cosigner Signature (if applicable): CC: Dr. Layla Ribera MD; Dr. Oneil Marks MD~ Signed [facility] Work Phone: [phone]) 291-677111-14-2023 Miscellaneous Notes* Letter - Coordinator, Mammography - 06/07/2023 8:09 AM EST June 07, 2023 PID: [id number] Dax Duarte [address] [place] [address] Dear Ms. Duarte, We are pleased to inform you that [...] dense breast tissue in addition to other riskfactors. Early detection of cancer is very important. We also understand recommendations regarding breast cancer screening are controversial. Please discuss with your primary care provider which strategy is best for you and whether a mammogram is right for you. Your imaging studies and report will be kept on file at [facility] as part of your permanent medical record and are available for your continuing care. Thank you for allowing us to help in meeting your health care needs. Sincerely, Dr. Staley Interpreting Radiologist [facility] (Normal over 40) documented in this encounterMarion Hospital11-13-2023 History of Present illness Narrative* Merlin Harvey Mammo Tech - 06/06/2023 7:30 AM EST Radiology Service Progress Note PATIENT NAME: Dax Duarte DATE OF SERVICE: June 06, 2023 TIME: 7:31 AM PATIENT IDENTITY VERIFICATION COMPLETED USING TWO (2) IDENTIFIERS: Name and Date of confirmedby patient verbally. FALL SCREENING: Has the patient had 2 falls in the last year or 1 fall with injury or currently using an Ambulatory Assistive Device (Walker, Cane, Wheelchair, Crutches, etc.)? No PATIENT GENDER DATA: Female. status: : No status: NO. PATIENT RELEVANT IMPLANT DATA REVIEWED: Not Applicable RADIOLOGY DEPARTMENT: Mammography PERIPHERAL IV DATA: Not applicable SIGNED BY: Merlin Harvey Happy Cosaso Mario June 06, 2023 7:31 AM documented in this encounterMarion Hospital05-01-2023 History of Present illness Narrative* Bety Benton MA - 11/22/2022 1:09 PM EDT POPULATION HEALTH NAVIGATION OUTREACH Action/FYI Patient returned call. Placed Mammogram orders, filed and scheduled patients mammogram for 06/06/23. Cable Layer completed for Mammogram. Patient Identified by Name and : YES, via phone Outreach Outcome/Action Spoke to patient / parent / legal guardian: Patient scheduled Patient will return the call or ask for return call Did you use a PCP flex slot to schedule this appointment? N/A Navigation Signature: Bety Benton MA November 22, 2022 1:09 PM * Bety Benton MA - 11/22/2022 12:51 PM EDT POPULATION HEALTH NAVIGATION OUTREACH Action/FYI Left patient voicemail message to return call. My chart message sent. Mammogram for May [address]23 Dr. Ribera scheduling template not open yet to schedule wellness exam for October 2023. Patient Identified by Name and : NO Outreach Outcome/Action Unable to reach patient: Left message [employer] message sent Did you use a PCP flex slot to schedule this appointment? N/A Reason for Outreach Care Gap or Scheduling/Wellness visits Payer: Payor: [employer] [facility] / Plan: S[employer] HMO / Product Type: HMO / Care Gap Reviewed:: Breast Cancer screening Reminder: Reminder note to check Health Maintenance for items below Health Maintenance items due: SHINGRIX VACCINE(1 of 2) Never done DTAP,TDAP,TD(2 - Td or Tdap) due on 02/01/2018 Navigation Signature: Bety Benton MA November 22, 2022 12:51 PM documented in this encounterMarion Hospital04-19-2023 History of Present illness Narrative* Guadalupe Brown RDMS - 11/10/2022 8:30 AM EDT Radiology Service Progress Note PATIENT NAME: Dax Duarte DATE OF SERVICE: November 10, 2022 TIME: 8:58 AM PATIENT IDENTITY VERIFICATION COMPLETED USING TWO (2) IDENTIFIERS: Name and Date of confirmedby patient verbally. FALL SCREENING: Has the patient [...] 10, 2022 8:58 AM documented in this encounterMarion Hospital04-13-2023 History of Present illness Narrative* Layla Ribera MD - 11/04/2022 8:00 AM EDT Medical B eligibilty date 03/2018 Date of last exam 11/03/2021 BP normal at home; gets anxious with doctor appt Due for annual thyroid US to monitor nodule Declines DEXA; would not be willing to take medications. PAST MEDICAL HISTORY Diagnosis Date GERD (gastroesophageal reflux disease) Lactose intolerance Osteoarthritis fingers Osteoporosis bisphosphonate 5279-7166, stopped due to heartburn PAST SURGICAL HISTORY Procedure Laterality Date NONE Penicillins and Sulfa (Sulfonamide Antibiotics) Current Outpatient Medications Medication Sig Cholecalciferol, Vitamin D3, 25 mcg (1,000 unit) cap Take 1 capsule by mouth once daily. C,E,zinc,copper [id number] (OCUVITE ADULT 50 PLUS) 250-5-1 mg cap [...] Topics Alcohol use: No Drug use: No Dax likes to exercise by walking. Discussed strength training and balance training. She watchesher diet for sodium, low fat and low cholesterol generally not very much. List of current specialists seen: Dr. Pugh at [facility] Dr [place], Dermatology End of Live Planning discussed including patients advanced directive wishes: Yes I am willing to follow Dax advanced directives. Depression screen She in the [...] Past Histories independently gathered by the clinical client support representative and the remaining scribed note accurately describes my personal service to the patient. Layla Ribera MD The documentation for this note was completed by Aminah Wilhelm Ma acting as scribe for Layla Ribera MD. November 04, 2022 7:50 AM. Aminah Wilhelm Ma documented in this encounterMarion Hospital04-10-2023 Miscellaneous Notes* Telephone Encounter - Beverly Anali - 11/01/2022 2:55 PM EDT Personalized Disease Prevention (PDP): a randomized clinical trial IRB: #[id number] PI: Gopal Gallagher, PhD ([phone]) Dax Duarte has consented/enrolled using the IRB approved Information Sheet (v 6.14.22) for the above-mentioned, minimal risk trial. The patient demonstrated good comprehension of risks, benefits, alternatives, study procedures and follow up. The patient was allocated to the control arm of the study. Beverly Briones documented in this encounterMarion Hospital11-08-2022 Miscellaneous Notes* Letter - Mammography Coordinator - 06/01/2022 3:29 PM EST June 01, 2022 PID: [id number] Dax Hawk [place] [address] [place] [address] Dear Ms. Duarte, We are pleased to inform you that [...] dense breast tissue in addition to other riskfactors. Early detection of cancer is very important. We also understand recommendations regarding breast cancer screening are controversial. Please discuss with your primary care provider which strategy is best for you and whether a mammogram is right for you. Your imaging studies and report will be kept on file at [facility] as part of your permanent medical record and are available for your continuing care. Thank you for allowing us to help in meeting your health care needs. Sincerely, Dr. Jacobo Interpreting Radiologist [facility] (Normal over 40) documented in this encounterMarion Hospital11-08-2022 History of Present illness Narrative* Taniya De Souza RT(R) - 06/01/2022 7:10 AM EST Radiology Service Progress Note PATIENT NAME: Dax Duarte DATE OF SERVICE: June 01, 2022 TIME: 7:21 AM PATIENT IDENTITY VERIFICATION COMPLETED USING TWO (2) IDENTIFIERS: Name and Date of confirmedby patient verbally. FALL SCREENING: Has the patient [...] 01, 2022 7:21 AM documented in this encounterMarion Hospital05-26-2022 History of Present illness Narrative* Lidia Martinez MA - 12/17/2021 5:22 PM EDT POPULATION HEALTH NAVIGATION OUTREACH Action/FYI Message regarding Colorectal Cancer Screening. [employer] message sent HM Due note for upcoming PCP visit Pt identified by name and : NO Outreach Outcome/Action Unable to reach patient: Left message [employer] message sent Reason for Outreach Care Gap or Scheduling/Wellness visits Payer: Payor: [facility] [employer] / Plan: [employer] HMO / Product Type: HMO / Care [...] 17, 2021 5:24 PM documented in this encounterMarion Hospital04-12-2022 History of Present illness Narrative* Layla Ribera MD - 11/03/2021 8:40 AM EDT Medical B eligibilty date 03/2018 Date of [...] disease) Lactose intolerance Osteoarthritis fingers Osteoporosis bisphosphonate 8040-2309, stopped due to heartburn PAST SURGICAL HISTORY [...] Topics Alcohol use: No Drug use: No Dax likes to exercise by walking. She watches her diet for sodium, low fat and low cholesterol generally not very much. List of current specialists seen: none End of Live Planning discussed including patients advanced directive wishes: Yes I am willing to follow Dax advanced directives. Depression screen She in the [...] 19.98 kg/m Visual acuity: Dr. Woodall at [facility] CV: RRR Lungs Claer ASSESMENT/PLAN: 66 [...] Past Histories independently gathered by the clinical client support representative and the remaining scribed note accurately describes my personal service to the patient. Layla Ribera MD 11/03/2021: Home BP Cuff Validated. Home BP: 181/97 Office BP: 150/80 The documentation for this note was completed by Aminah Wilhelm Ma acting as scribe for Layla Ribera MD. November 03, 2021 8:57 AM. Aminah Wilhelm Ma documented in this encounterMarion HospitalEvaluation note* Diagnosis Medicare annual wellness visit, subsequent- Primary Routine general medical examination at a health care facility Screening for colon cancer Special screening for malignant neoplasms, colon Thyroid nodule Nontoxic uninodular goiter Hyperlipidemia, unspecified hyperlipidemia type Osteoporosis without current pathological fracture, unspecified osteoporosis type Elevated glucose Other abnormal glucose documented in this encounter [facility]* Diagnosis Thyroid nodule Nontoxic uninodular goiter documented in this encounter [facility]* Diagnosis Medicare annual wellness visit, subsequent- Primary Routine general medical examination at a health care facility Screening for colon cancer Special screening for malignant neoplasms, colon Thyroid nodule Nontoxic uninodular goiter [facility] Diagnosis Encounter for screening mammogram for malignant neoplasm of breast- Primary Other screening mammogram [facility] Diagnosis Thyroid nodule Nontoxic uninodular goiter [facility] Diagnosis Encounter for screening mammogram for malignant neoplasm of breast Other screening mammogram [facility] noteNo assessment information availableWNationwide Children's [facility] Work Phone: Evaluation note* Diagnosis Screening for osteoporosis- Primary Special screening for osteoporosis [facility]* Diagnosis Encounter for Medicare annual wellness exam- Primary Routine general medical examination at a health care facility REBA (generalized anxiety disorder) Generalized anxiety disorder H/O left wrist surgery Screening for colon cancer Special screening for malignant neoplasms, colon [facility]* Diagnosis Screening for osteoporosis- Primary Special screening for osteoporosis [facility]* Diagnosis Visit for screening mammogram- Primary Other screening mammogram [facility]* Diagnosis Screening for osteoporosis- Primary Special screening for osteoporosis Closed fracture of left wrist with routine healing, subsequent encounter documented in this encounter [facility] note* Diagnosis Screening for osteoporosis Special screening for osteoporosis Closed fracture of left wrist with routine healing, subsequent encounter documented in this encounter [facility]* Diagnosis Age-related osteoporosis without current pathological fracture- Primary Senile osteoporosis documented [facility] this [facility]* Diagnosis Herpes zoster without complication- Primary Herpes zoster without mention of complication [facility]* Diagnosis Encounter for Medicare annual wellness exam- Primary Routine general medical examination at a health care facility Screening for depression Encounter for screening examination for other mental health and behavioral disorders Encounter for screening mammogram for malignant neoplasm of breast Other screening mammogram Personal history of (healed) osteoporosis fracture documented in this encounter [facility] Discharge instructions Additional Instructions Implant Used?: YesWNationwide Children's Hospital Work Phone: Reason for referral (narrative)* Diagnostic Procedure Only (Routine) - Authorized Specialty Diagnoses / Procedures Referred By Susan ba Referred To Contact US IMAGING Diagnoses Thyroid nodule Procedures US THYROID/PARATHYROID US SOFT TISSUE HEAD & NECK REAL TIME IMLayla Kam MD [address] [place] [address] Us Imaging Referral ID Status Reason Start Date Expiration Date Visits Requested Visits Authorized [id number] Authorized Auto-Generat ed Referral 11/03/2021 12/03/2022 1 1 [facility] for referral (narrative)* Diagnostic Procedure Only (Routine) - Closed Specialty Diagnoses / Procedures Referred By Contethan t Referred To Contact US IMAGING Diagnoses Thyroid nodule Procedures US THYROID/PARATHYROID US SOFT TISSUE HEAD & NECK REAL TIME IMGE Layla Cooper MD [address] [place] [address] Us Imaging Referral ID Status Reason Start Date Expiration Date V isits Requested Visits Authorized [id number] Closed Auto-Generate d Referral 11/03/2021 12/03/2022 1 1 [facility] for referral (narrative)* Diagnostic Procedure Only (Routine) - Authorized Specialty Diagnoses / Procedures Referred By Xiomaraac t Referred To Contact US IMAGING Diagnoses Thyroid nodule Procedures US THYROID/PARATHYROID US SOFT TISSUE HEAD & NECK REAL TIME IMGE Layla Cooper MD [address] [place] [address] Us Imaging Referral ID Status Reason Start Date Expiration Date Visits Requested Visits Authorized [id number] Authorized Auto-Generat ed Referral 11/04/2022 12/04/2023 1 1 [facility] for referral (narrative)* Diagnostic Procedure Only (Routine) - Authorized Specialty Diagnoses / Procedures Referred By Susan ba Referred To Contact BR IMAGING Diagnoses Encounter for screening mammogram for malignant neoplasm of breast Procedures JUANPABLO SCREENING SCREENING MAMMOGRAPHY BI 2-VIEW BREAST INC CAD Layla Ribera MD [address] [place] [address] Br Imaging [address] [place] [address] Referral ID Status Reason Start Date Expiration Date Visits Requested Visits Authorized [id number] Authorized Auto-Generat ed Referral 11/22/2022 12/22/2023 1 1 [facility] for referral (narrative)* Diagnostic Procedure Only (Routine) - Closed Specialty Diagnoses / Procedures Referred By Susan ba Referred To Contact US IMAGING Diagnoses Thyroid nodule Procedures US THYROID/PARATHYROID US SOFT TISSUE HEAD & NECK REAL TIME IMGE Layla Cooper MD [address] [place] [address] [place] [address] Referral ID Status Reason Start Date Expiration Date V isits Requested Visits Authorized [id number] Closed Auto-Generate d Referral 11/04/2022 12/04/2023 1 1 T [facility] for referral (narrative)* Diagnostic Procedure Only (Routine) - New Request Specialty Diagnoses / Procedures Referred By Xiomaraac t Referred To Contact BR IMAGING Diagnoses Visit for screening mammogram Procedures JUANPABLO SCREENING SCREENING MAMMOGRAPHY BI 2-VIEW BREAST INC CAD Layla Ribera MD [address] [place] [address] Br Imaging [address] [facility] [place] [address] Referral ID Status Reason Start Date Expiration Date Visits Requested Visits Authorized [id number] New Request Auto-Generat ed Referral 01/19/2024 02/16/2025 1 1 [facility] for referral (narrative)* Diagnostic Procedure Only (Routine) - Authorized Specialty Diagnoses / Procedures Referred By Susan t Referred To Contact XR IMAGING Diagnoses Screening for osteoporosis Closed fracture of left wrist with routine healing, subsequent encounter Procedures DXA-AXIAL SKELETON DXA BONE DENSITY STUDY /> SITES AXIAL Enzo Resendez MD [address] [place] [address] [place] [address] Referral ID Status Reason Start Date Expiration Date Visits Requested Visits Authorized [id number] Authorized Auto-Generat ed Referral 04/12/2024 05/12/2025 1 1 [facility] for visit Narrative* Diagnostic Procedure Only (Routine) - Closed Specialty Diagnoses / Procedures Referred By Contac t Referred To Contact US IMAGING Diagnoses Thyroid nodule Procedures US THYROID/PARATHYROID US SOFT TISSUE HEAD & NECK REAL TIME IMGE Layla Cooper MD [address] [place] [address] Us Imaging Referral ID Status Reason Start Date Expiration Date V isits Requested Visits Authorized [id number] Closed Auto-Generate d Referral 11/03/2021 12/03/2022 1 1 [facility] for visit Narrative* Diagnostic Procedure Only (Routine) - Closed Specialty Diagnoses / Procedures Referred By Susan t Referred To Contact BR IMAGING Diagnoses Visit for screening mammogram Procedures JUANPABLO SCREENING SCREENING MAMMOGRAPHY BI 2-VIEW BREAST INC Layla Rivero MD [address] [place] [address] Br Imaging [address] [place] [address] Referral ID Status Reason Start Date Expiration Date V isits Requested Visits Authorized [id number] Closed Auto-Generate d Referral 03/18/2022 04/16/2023 1 1 [facility] for visit Narrative* Diagnostic Procedure Only (Routine) - Closed Specialty Diagnoses / Procedures Referred By Susan ba Referred To Contact BR IMAGING Diagnoses Encounter for screening mammogram for malignant neoplasm of breast Procedures JUANPABLO SCREENING SCREENING MAMMOGRAPHY BI 2-VIEW BREAST INC Layla Rivero MD [address] [place] [address] Br Imaging [address] [place] [address] Referral ID Status Reason Start Date Expiration Date V isits Requested Visits Authorized [id number] Closed Auto-Generate d Referral 11/22/2022 12/22/2023 1 1 [facility] for visit Narrative* Diagnostic Procedure Only (Routine) - Closed Specialty Diagnoses / Procedures Referred By Susan ba Referred To Contact BR IMAGING Diagnoses Visit for screening mammogram Procedures JUANPABLO SCREENING SCREENING MAMMOGRAPHY BI 2-VIEW BREAST INC Layla Rivero MD [address] [place] [address] Br Imaging [address] [place] [address] Referral ID Status Reason Start Date Expiration Date V isits Requested Visits Authorized [id number] Closed Auto-Generate d Referral 01/19/2024 02/16/2025 1 1 [facility] for visit Narrative* Diagnostic Procedure Only (Routine) - Closed Specialty Diagnoses / Procedures Referred By Susan t Referred To Contact XR IMAGING Diagnoses Screening for osteoporosis Closed fracture of left wrist with routine healing, subsequent encounter Procedures DXA-AXIAL SKELETON DXA BONE DENSITY STUDY 1/> SITES AXIAL Enzo Resendez MD [address] [place] [address] [place] [address] Referral ID Status Reason Start Date Expiration Date V isits Requested Visits Authorized [id number] Closed Auto-Generate d Referral 04/12/2024 05/12/2025 1 1 [facility] Chief Complaint and Reason for Visit Chief Complaint upper ext Chief Complaint upper ext LEFT WRIST ORIF, Left Distal Radius, Open Redu ORIF, Left Distal Radius, Open Redu Chief Complaint left wrist rm 1 LEFT WRIST left wrist room 3 LEFT WRIST RM 2 L WRIST INTERNAL Advance Directives No Advanced Directives Records Found Advance Directive Response Recorded Date/ Time Living Will No July 12, 2 023 11:25am Power of Grades 9 Through 12 Teacher No July 12, 2023 11:25am Advance Directive Response Recorded Date/ Time Name of Medical Power of Grades 9 Through 12 Teacher SPOUSE July 20, 2023 1:02pm Living Will Yes July 20, 2 023 1:02pm Power of Grades 9 Through 12 Teacher Yes July 20, 2023 1:02pm Advance Directive Response Recorded Date/ Time Living Will Yes July 20, 2 023 2:02pm Power of Grades 9 Through 12 Teacher Yes July 20, 2023 2:02pm Summary Purpose Family History No Family History Records FoundNo Family History Records Found Additional Source Comments Source Comments (unrecognize d section and content) In the event this informatio n is protected by the Federal Confidentiality of Alcohol and Drug Abuse Patient Records regulations: The Federal rules restrict any use of the information to criminally investigate or prosecute any alcohol or drug abuse patient.[facility] HospitalIn the event this information is protected by the Federal Confidentiality of Alcohol and Drug Abuse Patient Records regulations: The Federal rules restrict any use of the information to criminally investigate or prosecute any alcohol or drug abuse patient.[facility] HospitalIn the event this information is protected by the Federal Confidentiality of Alcohol and Drug Abuse Patient Records regulations: The Federal rules restrict any use of the information to criminally investigate or prosecute any alcohol or drug abuse patient.[facility] HospitalIn the event this information is protected by the Federal Confidentiality of Alcohol and Drug Abuse Patient Records regulations: The Federal rules restrict any use of the information to criminally investigate or prosecute any alcohol or drug abuse patient.[facility] HospitalIn the event this information is protected by the Federal Confidentiality of Alcohol and Drug Abuse Patient Records regulations: The Federal rules restrict any use of the information to criminally investigate or prosecute any alcohol or drug abuse patient.[facility] HospitalIn the event this information is protected by the Federal Confidentiality of Alcohol and Drug Abuse Patient Records regulations: The Federal rules restrict any use of the information to criminally investigate or prosecute any alcohol or drug abuse patient.[facility] HospitalIn the event this information is protected by the Federal Confidentiality of Alcohol and Drug Abuse Patient Records regulations: The Federal rules restrict any use of the information to criminally investigate or prosecute any alcohol or drug abuse patient.[facility] HospitalIn the event this information is protected by the Federal Confidentiality of Alcohol and Drug Abuse Patient Records regulations: The Federal rules restrict any use of the information to criminally investigate or prosecute any alcohol or drug abuse patient.[facility] HospitalIn the event this information is protected by the Federal Confidentiality of Alcohol and Drug Abuse Patient Records regulations: The Federal rules restrict any use of the information to criminally investigate or prosecute any alcohol or drug abuse patient.[facility] HospitalIn the event this information is protected by the Federal Confidentiality of Alcohol and Drug Abuse Patient Records regulations: The Federal rules restrict any use of the information to criminally investigate or prosecute any alcohol or drug abuse patient.[facility] HospitalIn the event this information is protected by the Federal Confidentiality of Alcohol and Drug Abuse Patient Records regulations: The Federal rules restrict any use of the information to criminally investigate or prosecute any alcohol or drug abuse patient.[facility] HospitalIn the event this information is protected by the Federal Confidentiality of Alcohol and Drug Abuse Patient Records regulations: The Federal rules restrict any use of the information to criminally investigate or prosecute any alcohol or drug abuse patient.[facility] HospitalIn the event this information is protected by the Federal Confidentiality of Alcohol and Drug Abuse Patient Records regulations: The Federal rules restrict any use of the information to criminally investigate or prosecute any alcohol or drug abuse patient.[facility] HospitalIn the event this information is protected by the Federal Confidentiality of Alcohol and Drug Abuse Patient Records regulations: The Federal rules restrict any use of the information to criminally investigate or prosecute any alcohol or drug abuse patient.[facility] HospitalIn the event this information is protected by the Federal Confidentiality of Alcohol and Drug Abuse Patient Records regulations: The Federal rules restrict any use of the information to criminally investigate or prosecute any alcohol or drug abuse patient.[facility] HospitalIn the event this information is protected by the Federal Confidentiality of Alcohol and Drug Abuse Patient Records regulations: The Federal rules restrict any use of the information to criminally investigate or prosecute any alcohol or drug abuse patient.[facility] HospitalIn the event this information is protected by the Federal Confidentiality of Alcohol and Drug Abuse Patient Records regulations: The Federal rules restrict any use of the information to criminally investigate or prosecute any alcohol or drug abuse patient.[facility] HospitalIn the event this information is protected by the Federal Confidentiality of Alcohol and Drug Abuse Patient Records regulations: The Federal rules restrict any use of the information to criminally investigate or prosecute any alcohol or drug abuse patient.[facility] HospitalIn the event this information is protected by the Federal Confidentiality of Alcohol and Drug Abuse Patient Records regulations: The Federal rules restrict any use of the information to criminally investigate or prosecute any alcohol or drug abuse patient.[facility] HospitalIn the event this information is protected by the Federal Confidentiality of Alcohol and Drug Abuse Patient Records regulations: The Federal rules restrict any use of the information to criminally investigate or prosecute any alcohol or drug abuse patient.[facility] HospitalIn the event this information is protected by the Federal Confidentiality of Alcohol and Drug Abuse Patient Records regulations: The Federal rules restrict any use of the information to criminally investigate or prosecute any alcohol or drug abuse patient.[facility] HospitalIn the event this information is protected by the Federal Confidentiality of Alcohol and Drug Abuse Patient Records regulations: The Federal rules restrict any use of the information to criminally investigate or prosecute any alcohol or drug abuse patient.[facility] Reason for Visit (unrecogniz ed section and content) Reason Comments Medicare Wellness Exam Reason Onset Date Comments Population Health Navigation Outreach 12/17/2021 [place] [facility] Reason Comments Research F/U PDP [id number] Consent Reason Onset Date Comments Population Health Navigation Outreach 11/22/2022 Navigator [place] [facility] outreach Reason Comments Radiology US Specialty Diagnoses / Procedures Referred By Contac t Referred To Contact US IMAGING Diagnoses Thyroid nodule Procedures US THYROID/PARATHYROID US SOFT TISSUE HEAD & NECK REAL TIME IMGE DOCM Layla Ribera MD [address] [place] [address] [place] [address] Referral ID Status Reason Start Date Expiration Date V isits Requested Visits Authorized [id number] Closed Auto-Generate d Referral 11/04/2022 12/04/2023 1 1 Reason Onset Date Comments Population Health Navigation Outreach 10/17/2023 Ob/peds Reason Comments Medicare Wellness Exam Reason Onset Date Comments Population Health Navigation Outreach 11/28/2023 omw Reason Onset Date Comments Population Health Navigation Outreach 04/12/2024 omw Reason Comments Rash Rash on back x 1 day Care Teams (unrecognized sec tion and content) Glove Stitcher Relationship Specialty Start Date End Date Layla Ribera MD [address] [place] [address] PCP - General Family Practice 06/23/15 Glove Stitcher Relationship Specialty Start Date End Date Layla Ribera MD [address] [place] [address] PCP - General Family Practice 06/23/15 Glove Stitcher Relationship Specialty Start Date End Date Layla Ribera MD [address] [place] [address] PCP - General Family Practice 06/23/15 Glove Stitcher Relationship Specialty Start Date End Date Layla Ribera MD [address] [place] [address] PCP - General Family Medicine 06/23/15 Glove Stitcher Relationship Specialty Start Date End Date Layla Ribera MD [address] [place] [address] PCP - General Family Medicine 06/23/15 Glove Stitcher Relationship Specialty Start Date End Date Layla Ribera MD [address] [place] [address] PCP - General Family Medicine 06/23/15 Glove Stitcher Relationship Specialty Start Date End Date Layla Ribera MD [address] [place] [address] PCP - General Family Medicine 06/23/15 Glove Stitcher Relationship Specialty Start Date End Date Layla Ribera MD [address] [place] [address] PCP - General Family Medicine 06/23/15 Glove Stitcher Relationship Specialty Start Date End Date Layla Ribera MD [address] [place] [address] PCP - General Family Medicine 06/23/15 Glove Stitcher Relationship Specialty Start Date End Date Layla Ribera MD [address] [place] [address] PCP - General Family Medicine 06/23/15 Glove Stitcher Relationship Specialty Start Date End Date Layla Ribera MD [address] [place] [address] PCP - General Family Medicine 06/23/15 Team Status: Active Member Role Status Dates Dr. Juan Amaro MD Family Provider Active Dr. Layla Ribera MD Primary Care Provider Active Team Status: Inactive Member Role Status Dates Dr. Layla Ribera MD Primary Care Provider Active Dr. Abhishek Gresham DO Emergency Provider Active Team Status: Inactive Member Role Status Dates Dr. Layla Ribera MD Primary Care Provider, Referr ing Provider Active Oneil Marks MD Attending Provider Active Team Status: Active Member Role Status Dates Dr. Layla Ribera MD Primary Care Provider Active Oneil Marks MD Attending Provider, Referring Provider, Other Provider Active Team Status: Inactive Member Role Status Dates Dr. Layla Ribera MD Primary Care Provider Active Dr. Abhishek Gresham DO Attending Provider, Emergency P rovider Active Team Status: Inactive Member Role Status Dates Dr. Layla Ribera MD Primary Care Provider Active Oneil Marks MD Attending Provider, Referring Prov ider Active Glove Stitcher Relationship Specialty Start Date End Date Layla Ribera MD [address] [place] [address] PCP - General Family Medicine 06/23/15 Glove Stitcher Relationship Specialty Start Date End Date Layla Ribera MD [address] [place] [address] PCP - General Family Medicine 06/23/15 Team Status: Inactive Member Role Status Dates Dr. Layla Ribera MD Primary Care Provider Active Dr. Dominic Manzano MD Attending Provider Active Glove Stitcher Relationship Specialty Start Date End Date Layla Ribera MD [address] [place] [address] PCP - General Family Medicine 06/23/15 Glove Stitcher Relationship Specialty Start Date End Date Layla Ribera MD [address] [place] [address] PCP - General Family Medicine 06/23/15 Glove Stitcher Relationship Specialty Start Date End Date Layla Ribera MD [address] [place] [address] PCP - General Family Medicine 06/23/15 Jessica Carson APRN.[employer] [address] [place] [address] Insurance Claims Examiner Family Medicine 07/01/24 Stan Damon APRN.[employer] [address] [place] [address] Insurance Claims Examiner Family Medicine 07/10/24 Glove Stitcher Relationship Specialty Start Date End Date Layla Ribera MD [address] [place] [address] PCP - General Family Medicine 06/23/15 Jessica Carson APRN.[employer] [address] [place] [address] Insurance Claims Examiner Family Medicine 07/01/24 Stan Damon APRN.[employer] [address] [place] [address] Insurance Claims Examiner Family Medicine 07/10/24 Glove Stitcher Relationship Specialty Start Date End Date Layla Ribera MD [address] [place] [address] PCP - General Family Medicine 06/23/15 Jessica Carson APRN.[employer] [address] [place] [address] Insurance Claims Examiner Family Medicine 07/01/24 Stan Damon APRN.[employer] [address] [place] [address] Insurance Claims Examiner Family Medicine 07/10/24 Glove Stitcher Relationship Specialty Start Date End Date Layla Ribera MD [address] [place] [address] PCP - General Family Medicine 06/23/15 Jessica Carson APRN.[employer] [address] [place] [address] Insurance Claims Examiner Family Medicine 07/01/24 Stan Damon APRN.[employer] [address] [place] [address] Insurance Claims Examiner Family [facility] 07/10/24 Glove Stitcher Relationship Specialty Start Date End Date Layla Ribera MD [address] [place] [address] PCP - General Family Medicine 06/23/15 Stan Damon APRN.[employer] [address] [place] [address] Insurance Claims Examiner Family Medicine 07/10/24 Goals (unrecognized section and content) Goals may be documented in a n alternate sectionGoals may be documented in an alternate section INFORMATION SOURCE (unrecogn ized section and content) DATE CREATED AUTHOR 09/04/2024 [facility] DATE CREATED AUTHOR AUTHOR'S NIKKY ATION 04/10/2025 [facility] FOR RECORDS PERTAINING TO PATIENTS WHO ARE [...] BE BASED ON THE PRIMARY CLINICAL RECORDS. [employer] [facility]. provides no warranty or guarantee of the accuracy or completeness of information in this document.
[2025-07-16 17:59] LABS: Hematocrit 45.2 % (37-47); Hemoglobin 14.5 g/dL (12.0-15.0); Immature Granulocytes Count 0.010 X10^3/uL (0.0-0.0); Mean Corp Hgb Conc 32.1 g/dL (32-36); Mean Corpuscular Volume 89.7 fL (81-99); Mean Platelet Vol. 10.7 fl (6.2-12.0); NRBC Flagged by Analyzer 0 % (0-5); Platelet Count 294 K/mm3 (150-450); RBC Distribution Width CV 13.0 % (11.6-14.6); RBC Distribution Width SD 42.3 fl (35.1-43.9); Red Blood Count 5.04 M/mm3 (4.2-5.4); White Blood Count 7.3 K/mm3 (4.4-11.0)
[2025-07-16 18:22] LABS: AST(SGOT) 18 U/L (<=31); Alanine Aminotransfer ALT/SGPT 12 U/L (<=34); Albumin, Serum 4.8 g/dL (3.4-4.8); Alkaline Phosphatase 80 U/L (35-104); Anion Gap 12 (7-18); BUN 14 mg/dL (4-19); BUN/Creat Ratio 18.5 RATIO (10-20); Calcium,Total 10.8 mg/dL (7.6-11.0); Carbon Dioxide 26.6 mmol/L (20.0-29.0); Chloride 102 mmol/L (96-106); Cholesterol 267 mg/dL (<=200); Globulin 2.5 g/dL (2.2-4.2); Glucose 129 mg/dL (70-99); Low Density Lipoprotein Calc. 178 mg/dL; Potassium 3.9 mmol/L (3.5-5.1); Triglycerides 113 mg/dL; Very Low Density Lipoprotein 23 mg/dL (5-40); cholesterol:hdl ratio screen 3.83
[2025-07-16 18:51] LABS: Vitamin D,25 Hydroxy 152.0 ng/mL (30-100)
== END | disposition home or self-care (01) ==
LOC: MTLAB 15:02
PROVIDERS: PCP Family Medicine; Referring Provider Family Medicine; Visit Provider Family Medicine
DX: Z13.220 Encounter for screening for lipoid disorders (principal); Z13.1 Encounter for screening for diabetes mellitus; Q38.3 Other congenital malformations of tongue; R53.83 Other fatigue; E59 Dietary selenium deficiency
CPT/HCPCS: 36415; 80053; 80061; 82306; 83036; 85025